=== PATIENT | male | born 1935 | race Caucasian/White ===

== ENCOUNTER 2018-06-12 12:52 | Inpatient (IN) ==
[2018-06-12 13:15] VITALS: BMI 24.9
[2018-06-12] MEDS ORDERED: NS 1000 ML 1,000 ML ONE (15:21)
[2018-06-12] MEDS ORDERED: NS 1000 ML 1,000 ML IV SCH (16:00)
--- NOTE | 2018-06-12 16:53 | DR.GENAD ---
HPI Time Seen Time Seen by Provider: 06/12/18 16:47 PCP Primary Care Physician: TIFFANY WU HPI Comment HPI Comment: PATIENT HAVE LOWER ABDOMINAL PAIN ALSO. SAW PCP THIS AM, LABS AND CT DONE. CALL TO GO TO NEAREST ED BECAUSE OF LOW HEMOGLOBIN. DENIES FEVER. Complaint/Symptoms Chief Complaint Doctors Comments: DIZZINESS, DARK STOOL NOTED YESTERDAY AND LOW HEMOGLOBIN. Chief Complaint:: PT HAD LABS DRAWN AND PT WAS TOLD TO COME ER BECAUSE HIS BLOOD WAS LOW , AND HE WAS INFECTED , AND HIS KIDNEYS ARE NOT WORKING ,,BR Self Treatment fo Chief Complaint: PT FAMILY C/O HAVING TARRY DIARRHEA, SINCE YESTERDAY AND IT STOPPED TODAY , PT HAS PERIODS AND CONSTIPATION AND DIARRHEA, BR Nurses notes reviewed Nurses Notes Review: Yes Source History Provided: Patient and Family Member Mode of Arrival Mode of Arrival: Ambulatory Timing Onset of Chief Complaint: 06/09/18 Came on: Suddenly Duration Duration: Constant Duration: Days Severity Severity: Moderate PMH PMH Past Medical History: Yes Past Medical History: Hypertension Past Surgical History: Yes Past Surgical History Comment: HIP REPLACEMENT, EYE SUGERY, OPEN HEART, Family History History of Family Medical Conditions: No Social History Does patient currently use any type of tobacco product: No Have you used tobacco products in the last 12 months: No Type of Tobacco Use: None Does any household member use tobacco: No Alcohol Use: None Do you use any recreational Drugs:: No Lives With: Family Lives Where: Home infectious screening In the last 2 months have you had wt loss of >10#?: NO Have you had fever, night sweats or hemotysis?: No Have you traveled outside the country in the last 6 months?: No Isolation: Standard ROS Review of Systems Constitutional: Weakness and Fatigue Eyes: No Symptoms Reported ENTM: No Symptoms Reported Respiratoy: Short of Breath Cardiovascular: No Symptoms Reported Gastrointestinal/Abdominal: No Symptoms Reported, Abdominal Pain, Constipation, Diarrhea and Other (GI BLEEDING) Genitourinary: Bleeding Neurological: No Symptoms Reported Musculoskeletal: No Symptoms Reported Integumentary: No Symptoms Reported Hematologic/Lymphatic: No Symptoms Reported Endocrine: No Symptoms Reported Psychiatric: No Symptoms Reported All Other Systems: Reviewed and Negative PE Vital Signs Vitals: Temperature 98.6 F Pulse Rate [Right Brachial] 90 Pulse Rate [Left Brachial] 84 Pulse Rate 47 Respiratory Rate 20 Blood Pressure [Right Arm] 134/64 Blood Pressure [Left Arm] 116/55 Blood Pressure 113/55 O2 Sat by Pulse Oximetry 97 General Limitations: No Limitations General Appearance: Alert and In No Apparent Distress Head Head Exam: Normal Inspection Eyes Eye exam: Normal Appearance ENT ENT Exam: Normal Exam External Ear Exam: Normal External Inspection TM/Canal Exam: Bilateral: Normal Nose Exam: Normal Nose Exam Mouth Exam: Normal Inspection Throat Exam: Normal Inspection Neck Neck Exam: Normal Inspection and Trachea Midline Chest Chest Inspection: Normal Inspection and Symmetric Chest Wall Rise Respiratory Respiratory Exam: Normal Lung Sounds Bilat Respiratory Exam: Bilateral: Clear to Auscultation Cardiovascular Cardiovascular Exam: Regular Rate and Normal Rhythm Abdominal Exam Abdominal Exam: Normal Inspection, Normal Bowel Sounds and Soft Extremities Extremities Exam: Normal Inspection Back Back Exam: Normal Inspection Neurologic Neurological Exam: Alert and Oriented X3 Psychiatric Psychiatric Exam: Normal Affect and Normal Mood Skin Skin Exam: Warm, Dry, Intact and Normal Color MDM Differential Diagnosis Differential Diagnosis: ANEMIA, GENERALIZE WEAKNESS, PUD, GI BLEEDING COURSE Treatment Treatment: SEE ORDERS. Education/Counseling Education/Counseling: Patient Educated On: Diagnosis and Needs for Follow Up ROR Labs Reviewed Laboratory Results Reviewed?: Yes Result Diagrams: 06/14/18 10:52 06/14/18 04:35 Laboratory: WBC 8.1 X10^3/uL (3.6-10.0) 06/14/18 06:23 RBC 3.12 X10^6/uL (4.7-6.0) L 06/14/18 06:23 Hgb 10.0 g/dL (13.5-18.0) L 06/14/18 10:52 Hct 30.0 % (42.0-54.0) L 06/14/18 10:52 MCV 87.6 fL (80.0-100.0) 06/14/18 06:23 MCH 29.9 pg (27.0-34.0) 06/14/18 06:23 MCHC 34.2 g/dL (33.0-35.0) 06/14/18 06:23 RDW 15.8 % (11.6-16.5) 06/14/18 06:23 Plt Count 284 X10^3/uL (150.0-450.0) 06/14/18 06:23 MPV 7.4 fL (7.4-11.0) 06/14/18 06:23 Neut % (Auto) 68.1 % (42.0-75.0) 06/14/18 06:23 Lymph % (Auto) 17.5 % (21.0-51.0) L 06/14/18 06:23 [place] % (Auto) 11.0 % (0.0-13.0) 06/14/18 06:23 Eos % (Auto) 3.0 % (0.9-2.9) H 06/14/18 06:23 Baso % (Auto) 0.4 % (0.2-1.0) 06/14/18 06:23 Neut # (Auto) 5.5 x10^3/uL (2.2-4.8) H 06/14/18 06:23 Lymph # (Auto) 1.4 X10^3/uL (1.3-2.9) 06/14/18 06:23 [place] # (Auto) 0.9 x10^3/uL (0.3-0.8) H 06/14/18 06:23 Eos # (Auto) 0.2 x10^3/uL (0.0-0.2) 06/14/18 06:23 Baso # (Auto) 0.0 X10^3/uL (0.0-0.1) 06/14/18 06:23 Absolute Nucleated RBC 0.0 /100WBC 06/14/18 06:23 Sodium 143 mmol/L (136-145) 06/14/18 04:35 Corrected Sodium TNP 06/14/18 04:35 Potassium 4.4 mmol/L (3.5-5.1) 06/14/18 04:35 Chloride 110 mmol/L (98-107) H 06/14/18 04:35 Carbon Dioxide 19.0 mmol/L (21-32) L 06/14/18 04:35 BUN 56 mg/dL (7-18) H 06/14/18 04:35 Creatinine 2.68 mg/dL (0.70-1.30) H 06/14/18 04:35 Est GFR (MDRD) Af Amer 29 (>60) L 06/14/18 04:35 Est GFR (MDRD) Non-Af 24 (>60) L 06/14/18 04:35 Glucose 89 mg/dL (65-99) 06/14/18 04:35 POC Glucose (mg/dL) 104 mg/dL (65-99) H 06/13/18 16:39 Calcium 8.2 mg/dL (8.5-10.1) L 06/14/18 04:35 Corrected Calcium 9.2 mg/dL (8.5-10.1) 06/14/18 04:35 Iron 14 ug/dL (50-175) L 06/12/18 15:17 TIBC 320 ug/dL (250-450) 06/12/18 15:17 Transferrin 237 mg/dL (202-364) 06/12/18 15:17 Ferritin 51 ng/mL (26-388) 06/12/18 15:17 Total Bilirubin 0.40 mg/dL (0.2-1.0) 06/14/18 04:35 AST 30 Units/L (15-37) 06/14/18 04:35 ALT 25 Units/L (12-78) 06/14/18 04:35 Alkaline Phosphatase 88 Units/L (46-116) 06/14/18 04:35 Creatine Kinase 375 Units/L (39-308) H 06/14/18 06:23 CK-MB (CK-2) 3.9 ng/mL (0-4.0) 06/14/18 06:23 CK/CKMB % Calc 1.0 % (<4) 06/14/18 06:23 Troponin I < 0.02 ng/mL (0-1.5) 06/14/18 06:23 Total Protein 6.1 g/dL (6.4-8.2) L 06/14/18 04:35 Albumin 2.7 g/dL (3.4-5.0) L 06/14/18 04:35 Globulin 3.4 g/dL (2.5-4.5) 06/14/18 04:35 Albumin/Globulin Ratio 0.8 Ratio (1.1-2.1) L 06/14/18 04:35 Triglycerides 59 mg/dL (0-150) 06/13/18 04:10 Cholesterol 150 mg/dL (0-200) 06/13/18 04:10 LDL Cholesterol, Calc 92 mg/dL (0-100) 06/13/18 04:10 HDL Cholesterol 46 mg/dL (40-60) 06/13/18 04:10 Cholesterol/HDL Ratio 3.3 (0.0-5.0) 06/13/18 04:10 Carcinoembryonic Ag 3.7 ng/mL (0.0-3.0) H 06/14/18 04:35 Vitamin B12 264 pg/mL (193-986) 06/12/18 15:17 Folate 18.7 ng/mL (>8.6) 06/12/18 15:17 Stool Description Fob tube 06/12/18 17:00 Stl Occult Blood (IFOB) Positive (NEGATIVE) A 06/12/18 17:00 Blood Type A POSITIVE 06/12/18 15:17 Antibody Screen Negative 06/12/18 15:17 Crossmatch See Detail 06/12/18 15:17 Diagnosis Discharge Problem: Anemia Instructions Instructions: Blood Transfusion, Adult, [id number]
[2018-06-12 18:23] LABS: CKMB % 1.1 % (<4); TROPONIN I 0.03 ng/mL (0-1.5)
[2018-06-12 18:25] LABS: CREATINE KINASE MB 8.4 ng/mL (0-4.0)
[2018-06-12] MEDS ORDERED: TYLENOL 325 MG TAB PO ONE ×2 (19:06→19:14)
[2018-06-12] MEDS ORDERED: BENADRYL CAP/TAB 25 MG PO ONE (19:14)
[2018-06-12] MEDS ORDERED: BENADRYL CAP 50 MG PO ONE (19:15)
[2018-06-12 19:24] LABS: CALCIUM 7.9 mg/dL (8.5-10.1); CARBON DIOXIDE 19.8 mmol/L (21-32); COR CA(FOR HYPOALB) 8.7 mg/dL (8.5-10.1); CREATININE 3.66 mg/dL (0.70-1.30); TOTAL PROTEIN 6.5 g/dL (6.4-8.2)
[2018-06-12] MEDS ORDERED: NS 250 ML IV 250 ML IV ONE ×2 (19:39→23:09)
[2018-06-12] MEDS: NAMENDA TAB 10 MG PO SCH (20:24)
[2018-06-12] MEDS ORDERED: ARICEPT TAB 5 MG PO SCH (20:59)
[2018-06-12] MEDS: PEPCID TAB 20 MG PO SCH (21:32)
[2018-06-12] MEDS: ARICEPT TAB 5 MG PO SCH (21:32)
[2018-06-13 05:11] LABS: BASOPHILS % (AUTO) 0.3 % (0.2-1.0); EOSINOPHILS # (AUTO) 0.2 x10^3/uL (0.0-0.2); EOSINOPHILS % (AUTO) 2.3 % (0.9-2.9); HEMATOCRIT 26.5 % (42.0-54.0); HEMOGLOBIN 9.1 g/dL (13.5-18.0); LYMPHOCYTES # (AUTO) 1.3 X10^3/uL (1.3-2.9); LYMPHOCYTES % (AUTO) 12.9 % (21.0-51.0); MEAN CORPUSCULAR HEMOGLOBIN 29.9 pg (27.0-34.0); MEAN CORPUSCULAR HGB CONC 34.4 g/dL (33.0-35.0); MEAN CORPUSCULAR VOLUME 86.8 fL (80.0-100.0); MEAN PLATELET VOLUME 7.8 fL (7.4-11.0); MONOCYTES # (AUTO) 0.7 x10^3/uL (0.3-0.8); MONOCYTES % (AUTO) 7.7 % (0.0-13.0); NEUTROPHILS # (AUTO) 7.4 x10^3/uL (2.2-4.8); NEUTROPHILS % (AUTO) 76.8 % (42.0-75.0); PLATELET COUNT 251 X10^3/uL (150.0-450.0); RED BLOOD COUNT 3.06 X10^6/uL (4.7-6.0); RED CELL DISTRIBUTION WIDTH 15.6 % (11.6-16.5); WHITE BLOOD COUNT 9.7 X10^3/uL (3.6-10.0)
[2018-06-13 05:27] LABS: ALANINE AMINOTRANSFERASE 22 Units/L (12-78); ALBUMIN 2.6 g/dL (3.4-5.0); ALKALINE PHOSPHATASE 84 Units/L (46-116); ASPARTATE AMINO TRANSFERASE 31 Units/L (15-37); BLOOD UREA NITROGEN 70 mg/dL (7-18); CALCIUM 7.4 mg/dL (8.5-10.1); CARBON DIOXIDE 20.2 mmol/L (21-32); CHLORIDE 107 mmol/L (98-107); CHOL/HDL RATIO 3.3 (0.0-5.0); CHOLESTEROL 150 mg/dL (0-200); COR CA(FOR HYPOALB) 8.5 mg/dL (8.5-10.1); CREATININE 3.16 mg/dL (0.70-1.30); HDL CHOLESTEROL 46 mg/dL (40-60); SODIUM 140 mmol/L (136-145); TOTAL PROTEIN 5.8 g/dL (6.4-8.2); TRIGLYCERIDES 59 mg/dL (0-150); eGFR NON BLACK RACES 20 (>60)
[2018-06-13 07:22] LABS: CREATINE KINASE 569 Units/L (39-308)
[2018-06-13 07:23] LABS: CREATINE KINASE MB 5.7 ng/mL (0-4.0); TROPONIN I < 0.02 ng/mL (0-1.5)
[2018-06-13] MEDS: BENICAR TAB 40 MG PO SCH (08:28)
[2018-06-13] MEDS: NAMENDA TAB 10 MG PO SCH ×2 (08:28→20:08)
[2018-06-13] MEDS: PEPCID TAB 20 MG PO SCH (08:28)
[2018-06-13] MEDS: HYDROCHLOROTHIAZIDE 12.5 MG CAP PO SCH (08:28)
[2018-06-13] MEDS ORDERED: ARICEPT TAB 5 MG PO SCH (09:00)
[2018-06-13] MEDS ORDERED: VISTARIL PO ONE (12:49)
[2018-06-13] MEDS ORDERED: RESTORIL CAP 30 MG PO PRN (16:17)
[2018-06-13] MEDS ORDERED: GEODON INJ IM ONE (17:00)
[2018-06-13] MEDS ORDERED: HALDOL INJ IVP PRN (17:03)
[2018-06-13] MEDS: ARICEPT TAB 5 MG PO SCH (20:08)
[2018-06-13] MEDS ORDERED: PROTONIX INJ 40 MG VIAL ONE (22:45)
[2018-06-13] MEDS: PROTONIX INJ 40 MG VIAL IVP SCH (22:48)
[2018-06-13] MEDS ORDERED: PHARMACY CONSULT - DOSE _____ XX SCH (23:00)
[2018-06-14 05:35] LABS: ALANINE AMINOTRANSFERASE 25 Units/L (12-78); ALBUMIN 2.7 g/dL (3.4-5.0); ALKALINE PHOSPHATASE 88 Units/L (46-116); ASPARTATE AMINO TRANSFERASE 30 Units/L (15-37); BLOOD UREA NITROGEN 56 mg/dL (7-18); CALCIUM 8.2 mg/dL (8.5-10.1); CHLORIDE 110 mmol/L (98-107); COR CA(FOR HYPOALB) 9.2 mg/dL (8.5-10.1); CREATININE 2.68 mg/dL (0.70-1.30); SODIUM 143 mmol/L (136-145); TOTAL PROTEIN 6.1 g/dL (6.4-8.2); eGFR NON BLACK RACES 24 (>60)
[2018-06-14 06:49] LABS: BASOPHILS % (AUTO) 0.4 % (0.2-1.0); EOSINOPHILS # (AUTO) 0.2 x10^3/uL (0.0-0.2); HEMATOCRIT 27.4 % (42.0-54.0); HEMOGLOBIN 9.3 g/dL (13.5-18.0); LYMPHOCYTES # (AUTO) 1.4 X10^3/uL (1.3-2.9); LYMPHOCYTES % (AUTO) 17.5 % (21.0-51.0); MEAN CORPUSCULAR HEMOGLOBIN 29.9 pg (27.0-34.0); MEAN CORPUSCULAR HGB CONC 34.2 g/dL (33.0-35.0); MEAN CORPUSCULAR VOLUME 87.6 fL (80.0-100.0); MEAN PLATELET VOLUME 7.4 fL (7.4-11.0); MONOCYTES # (AUTO) 0.9 x10^3/uL (0.3-0.8); NEUTROPHILS # (AUTO) 5.5 x10^3/uL (2.2-4.8); NEUTROPHILS % (AUTO) 68.1 % (42.0-75.0); PLATELET COUNT 284 X10^3/uL (150.0-450.0); RED BLOOD COUNT 3.12 X10^6/uL (4.7-6.0); RED CELL DISTRIBUTION WIDTH 15.8 % (11.6-16.5); WHITE BLOOD COUNT 8.1 X10^3/uL (3.6-10.0)
[2018-06-14 07:03] LABS: CREATINE KINASE 375 Units/L (39-308); CREATINE KINASE MB 3.9 ng/mL (0-4.0); TROPONIN I < 0.02 ng/mL (0-1.5)
[2018-06-14] MEDS ORDERED: NS 100 ML IV 100 ML with VENOFER 400 MG IV NR ×2 (08:00)
[2018-06-14] MEDS: PROTONIX INJ 40 MG VIAL IVP SCH (09:23)
[2018-06-14] MEDS: NAMENDA TAB 10 MG PO SCH (09:23)
[2018-06-14] MEDS: HYDROCHLOROTHIAZIDE 12.5 MG CAP PO SCH (09:24)
[2018-06-14] MEDS: BENICAR TAB 40 MG PO SCH (09:25)
[2018-06-14] MEDS: PEPCID TAB 20 MG PO SCH (09:25)
[2018-06-14 16:26] VITALS: BP 116/55
== END 2018-06-14 15:55 | disposition home or self-care (01) | DRG 812 ==
LOC: ER 13:06 → MED/SURG 17:46
PROVIDERS: ADMIT Internal Medicine; ATTEND Internal Medicine
DX: Z87.19 Personal history of other diseases of the digestive system; R53.1 Weakness; D64.89 Other specified anemias; R10.13 Epigastric pain; M13.89 Other specified arthritis, multiple sites; R42 Dizziness and giddiness; K92.2 Gastrointestinal hemorrhage, unspecified; R10.84 Generalized abdominal pain
CPT/HCPCS: 36415; 36430; 74176; 80053; 80061; 81001; 82150; 82270; 82378; 82550; 82553; 82607; 82728; 82746; 83540; 83550; 83690; 84466; 84484; 85014; 85018; 85025; 86850; 86900; 86901; 86922; 93005; 94760; 96365; 96367; 99221; 99231; 99238; 99282; 99284; A4222; C9113; P9016; Q0177; J1630; J1756; J3490; J7030; J7050

== ENCOUNTER 2018-06-29 16:40 | Inpatient (IN) ==
[2018-06-29] MEDS ORDERED: NS 1000 ML 1,000 ML IV SCH (17:00)
[2018-06-29] MEDS ORDERED: DUONEB 0.5 MG/3 MG NEB ONE (17:00)
[2018-06-29] MEDS ORDERED: SOLU-Medrol 125 MG VIAL IVP ONE (17:00)
--- NOTE | 2018-06-29 17:04 | DR.AMS ---
HPI - Time Seen Time seen: 16:59 - PCP Primary Care Physician: TIFFANY WU - Complaint Cheif Complaint Doctors Comments: Patient brought in by EMS with the complaint that the patient was unresponsive according to family members. Son states the patient has had a cold, cough, congestion with wheezing at home and was not responding to him and he called EMS. States his alzheimers is getting worst and he has problems controlling his bowels and he was setting on the side of the bed yesterday and he was changing his pull up when he fell off the bed and hit his head. States patient was not talking to them at home and he has had slurred speech. States he has a history of low blood and his last visit hemoglobin was 7.1 and he received two units of blood. Patient denies chest pain. Chief Complaint:: EMS OUT TO PT WITH UNRESPONSIVE ? STROKE UPON EMS ARRIVAL PT ALERT AND CONFUSED PT HAS HX OF ALZHEIMERS, UPON ARRIVAL TO ED PT IS ALERT AND ORIENTED TIMES 3 .PT IS MOVING ALL EXT'S WELL AND HE IS ABLE TO FOLLOW COMMANDS , PT C/O HAVING PAIN TO HIS LEGS HIS SPEECH IS CLEAR AND NO SLURRED SPEECH NOTED, PT IS SLIGHTLY PALE ,BR Self Treatment fo Chief Complaint: PT RECENTLY ADMITTED FOR ANEMIA, EMS NOTED PT TO HAVE CONGESTED LUNGS, PT GIVEN RESP TX, UPON ARRIVAL TO ED EXP WHEEZING NOTED TO PTS LEFT LUNG NO DISTRESS NOTED ,BR - Reviewed Nurses Notes Reviewed: Yes - Source History Provided: Patient, EMS - Mode of Arrival Mode of Arrival: EMS - Timing Onset of Chief Complaint: 06/29/18 Came On: Gradually Symptoms: Improving Symptom Onset: Unknown - Duration Duration: Intermittent How lon Duration: Days - Quality Quality: Decreased Alertness, Change in Behavior, Confusion, Not Eating - Severity Severity: Mild - Context Recent: Cough, Trauma (hit head yestereday) History Of: Dementia - Associated Signs and Symptoms Associated Signs and Symptoms: Generalized Weakness, Slurred Speech, Change in Behavior, Confusion, Decreased Oral Intake, Unresponsiveness PMH - PMH Past Medical History: Yes Past Medical History: Hypertension Past Medical History Comment: CAD, ANEMIA, ? PEPTIC ULCER, Past Surgical History: Yes Surgical History: Ortho Surgery - Family History History of Family Medical Conditions: Yes Family Medical History: Diabetes Mellitus, Hypertension - Social History Does patient currently use any type of tobacco product: No Have you used tobacco products in the last 12 months: No Type of Tobacco Use: None Does any household member use tobacco: No Alcohol Use: None Do you use any recreational Drugs:: No Lives With: Family Lives Where: Home - infectious screening In the last 2 months have you had wt loss of >10#?: NO Have you had fever, night sweats or hemotysis?: No Have you traveled outside the country in the last 6 months?: No ROS - Review of Systems Constitutional: No Symptoms Reported, Weakness, Loss of Appetite Eyes: No Symptoms Reported. negative: See HPI, Eye Pain, Blurred Vision, Tearing, Discharge, Photophobia, Diplopia, Other ENTM: No Symptoms Reported Respiratoy: No Symptoms Reported, Productive Cough, Short of Breath, Wheezing Cardiovascular: No Symptoms Reported. negative: See HPI, Chest Pain, Edema, Palpitations, Syncope, Cyanosis, Skin Mottling, Other Gastrointestinal/Abdominal: No Symptoms Reported. negative: See HPI, Abdominal Pain, Constipation, Diarrhea, Nausea, Vomiting, Food Intolerance, Other Genitourinary: No Symptoms Reported Neurological: No Symptoms Reported, Weakness, Speech Problem Musculoskeletal: No Symptoms Reported Integumentary: No Symptoms Reported Hematologic/Lymphatic: No Symptoms Reported Endocrine: No Symptoms Reported Psychiatric: No Symptoms Reported. negative: See HPI, Anxiety, Depression, Hallucinations, Excessive crying, Suicidal, Other PE - General Limitations: Physical Limitation General Appearance: Alert, In No Apparent Distress - Head Head Exam: Normal Inspection, Atraumatic, Normocephalic Head Exam Physical: negative: Laceration, Abrasion, Contusion, Hematoma, Raccoon Eyes, Henao's Sign, Tenderness of Temporal Artery, CSF Rhinorrhea, CSF Otorrhea, Other - Eyes Eye exam: Normal Appearance, PERRL, EOMI. negative: Scleral Icterus, Conjunctival Injection, Nystagmus, Miosis, Mydrasis, Periorbital Swelling, Periorbital Tenderness, Other Pupils: Regular, Round: Bilateral - ENT ENT Exam: Normal Exam, Normal Oropharynx, Normal External Ear Exam, Mucous Membranes Moist, TM's Normal Bilaterally External Ear Exam: Normal External Inspection TM/Canal Exam: Bilateral Normal Nose Exam: Normal Nose Exam Mouth Exam: Normal Inspection Throat Exam: Normal Inspection - Neck Neck Exam: Normal Inspection, Full ROM, Trachea Midline. negative: Tenderness, Meningismus, Lymphadenopathy, Thyromegaly, Other - Chest Chest Inspection: Normal Inspection, Symmetric Chest Wall Rise - Respiratory Respiratory Exam: Normal Lung Sounds Bilat, Chest Wall Tenderness Respiratory Exam: Bilateral Wheezing, Bilateral Decreased Breath Sounds, Left Rales - Cardiovascular Cardiovascular Exam: Regular Rate, Normal Rhythm, Normal Heart Sounds - Abdominal Exam Abdominal Exam: Normal Inspection, Normal Bowel Sounds, Soft Abdominal Tenderness: negative: RUQ, RLQ, LUQ, LLQ, Epigastrium, Suprapubic, Diffuse, Mild, Moderate, Severe, Other - Extremities Extremities Exam: Normal Inspection, Full ROM, Normal Capillary Refill. negative: Tenderness, Edema, Joint Swelling, Calf Tenderness, Other - Back Back Exam: Normal Inspection, Full ROM - Neurological Neurological Exam: Alert, Oriented X3, CN II-XII Intact, Reflexes Normal. negative: Normal Gait (gait not tested) Patient Oriented To: Person, Place. negative: Time (states he is 89 years old) Speech: Fluid Speech Cranial Nerve Exam: EOM Function (II, III, IV, ): Normal, Facial Sensation (V): Normal, Facial Palsy (VII): Normal Cerebellar Function: Normal Vibratory/Position. negative: Normal Gait (gait not tested) Motor Strength - LUE: 5/5 Motor Strength - RUE: 5/5 Motor Strength - RLE: 5/5 Upper Motor Neuron Exam: Babinski Sign: Normal Sensory Exam Upper Extremity: Light Touch: Normal DTR: achilles tendon (L): 2+, achilles tendon (R): 2+, bicep (L): 2+, bicep (R): 2+ - Psychological Psychiatric Exam: Normal Affect, Normal Mood Expanded Psychiatric Exam: negative: Poor Eye Contact, Pressured Speech, Echolalia, Psychomotor Agitation, Delusional, Paranoid, Catatonic, Mute, Perseverating, Euphoric, Restlessness, Flight of Ideas, Loose Associations, Uncooperative, Refuses to Answer, Auditory Hallucinations, Visual Hallucinations, Confabulating, Other - Skin Skin Exam: Warm, Dry, Intact, Normal Color - Vitals Vital Signs: Temp Pulse Pulse Resp BP BP BP 06/29/18 18:09 92 H 18 105/53 06/29/18 18:08 86 16 113/57 06/29/18 17:30 91 H 06/29/18 16:45 98.0 F 91 H 20 109/55 06/14/18 16:00 116/55 116/55 06/13/18 17:00 134/64 Pulse Ox 06/29/18 18:09 92 L 06/29/18 18:08 92 L 06/29/18 17:30 100 06/29/18 16:45 100 06/14/18 16:00 06/13/18 17:00 Course - Consultation Called: 18:22 Call Returned: 18:22 (Dr. Mack to admit patient) - Education/Counseling Education/Counseling: Patient, Family Educated On: Treatment, Diagnosis, Needs for Follow Up ROR - Labs Reviewed Laboratory Results Reviewed?: Yes (All labs and x-ray results reviewed and discussed with family) Result Diagrams: 06/29/18 17:00 06/29/18 17:00 - XRAY XRAY Interpreted by: Radiologist (CT head: No acute intracranial pathology), Self (CXR: Borderline cardiomegaly with focal parenchymal density left base may represent chrinic scarring or a acute process int he lower lobe.) XRAY Findings: CXR: MIld cardiomegaly. Small focal parenchymal density left base. - EKG Rate: 91 [place]: Normal Rhythm: NSR Block: None, RBBB ST: Old, Inf, Infarct - Labs Reviewed Laboratory: WBC 9.4 X10^3/uL (3.6-10.0) 06/29/18 17:00 RBC 2.71 X10^6/uL (4.7-6.0) L 06/29/18 17:00 Hgb 8.3 g/dL (13.5-18.0) L 06/29/18 17:00 Hct 24.4 % (42.0-54.0) L 06/29/18 17:00 MCV 90.1 fL (80.0-100.0) 06/29/18 17:00 MCH 30.5 pg (27.0-34.0) 06/29/18 17:00 MCHC 33.9 g/dL (33.0-35.0) 06/29/18 17:00 RDW 16.1 % (11.6-16.5) 06/29/18 17:00 Plt Count 297 X10^3/uL (150.0-450.0) 06/29/18 17:00 MPV 7.9 fL (7.4-11.0) 06/29/18 17:00 Neut % (Auto) 60.1 % (42.0-75.0) 06/29/18 17:00 Lymph % (Auto) 29.1 % (21.0-51.0) 06/29/18 17:00 [place] % (Auto) 7.9 % (0.0-13.0) 06/29/18 17:00 Eos % (Auto) 2.7 % (0.9-2.9) 06/29/18 17:00 Baso % (Auto) 0.2 % (0.2-1.0) 06/29/18 17:00 Neut # (Auto) 5.6 x10^3/uL (2.2-4.8) H 06/29/18 17:00 Lymph # (Auto) 2.7 X10^3/uL (1.3-2.9) 06/29/18 17:00 [place] # (Auto) 0.7 x10^3/uL (0.3-0.8) 06/29/18 17:00 Eos # (Auto) 0.3 x10^3/uL (0.0-0.2) H 06/29/18 17:00 Baso # (Auto) 0.0 X10^3/uL (0.0-0.1) 06/29/18 17:00 Absolute Nucleated RBC 0.0 /100WBC 06/29/18 17:00 INR Target Range - 06/29/18 17:00 INR 1.01 (0.8-1.3) 06/29/18 17:00 APTT 27.4 SECONDS (22.9-36.5) 06/29/18 17:00 PTT Comment - 06/29/18 17:00 Sodium 140 mmol/L (136-145) 06/29/18 17:00 Corrected Sodium 141 mmol/L (136-145) 06/29/18 17:00 Potassium 4.4 mmol/L (3.5-5.1) 06/29/18 17:00 Chloride 106 mmol/L (98-107) 06/29/18 17:00 Carbon Dioxide 20.8 mmol/L (21-32) L 06/29/18 17:00 BUN 95 mg/dL (7-18) H 06/29/18 17:00 Creatinine 3.96 mg/dL (0.70-1.30) H 06/29/18 17:00 Est GFR (MDRD) Af Amer 19 (>60) L 06/29/18 17:00 Est GFR (MDRD) Non-Af 15 (>60) L 06/29/18 17:00 Glucose 128 mg/dL (65-99) H 06/29/18 17:00 Calcium 7.8 mg/dL (8.5-10.1) L 06/29/18 17:00 Corrected Calcium 8.7 mg/dL (8.5-10.1) 06/29/18 17:00 Magnesium 2.3 mg/dL (1.7-2.9) 06/29/18 17:00 Total Bilirubin 0.20 mg/dL (0.2-1.0) 06/29/18 17:00 AST 17 Units/L (15-37) 06/29/18 17:00 ALT 19 Units/L (12-78) 06/29/18 17:00 Alkaline Phosphatase 92 Units/L (46-116) 06/29/18 17:00 Creatine Kinase 71 Units/L (39-308) 06/29/18 17:00 CK-MB (CK-2) 2.3 ng/mL (0-4.0) 06/29/18 17:00 CK/CKMB % Calc 3.2 % (<4) 06/29/18 17:00 Troponin I < 0.02 ng/mL (0-1.5) 06/29/18 17:00 Total Protein 6.1 g/dL (6.4-8.2) L 06/29/18 17:00 Albumin 2.9 g/dL (3.4-5.0) L 06/29/18 17:00 Globulin 3.2 g/dL (2.5-4.5) 06/29/18 17:00 Albumin/Globulin Ratio 0.9 Ratio (1.1-2.1) L 06/29/18 17:00 - Diagnosis Discharge Problem: Left pulmonary infiltrate on CXR, Dehydration, Normocytic anemia, Hyperglycemia, Cardiomegaly Altered mental status Qualifiers: Altered mental status type: transient alteration of awareness Qualified Code(s): R40.4 - Transient alteration of awareness Chronic kidney disease (CKD) Qualifiers: Chronic kidney disease stage: stage 4 (severe) Qualified Code(s): N18.4 - Chronic kidney disease, stage 4 (severe) Alzheimer disease Qualifiers: Alzheimer's disease onset: unspecified onset - Discharge Plan Disposition: ADMITTED INPATIENT Condition: Stable - Follow ups/Referrals Follow ups/Referrals: Melvin Mack [Primary Care Provider] - 3 days - Instructions
[2018-06-29] MEDS ORDERED: DUONEB 0.5 MG/3 MG ONE (17:05)
[2018-06-29] MEDS ORDERED: SOLU-Medrol 125 MG VIAL ONE (17:05)
[2018-06-29 17:20] LABS: BASOPHILS % (AUTO) 0.2 % (0.2-1.0); EOSINOPHILS # (AUTO) 0.3 x10^3/uL (0.0-0.2); EOSINOPHILS % (AUTO) 2.7 % (0.9-2.9); HEMATOCRIT 24.4 % (42.0-54.0); HEMOGLOBIN 8.3 g/dL (13.5-18.0); LYMPHOCYTES # (AUTO) 2.7 X10^3/uL (1.3-2.9); LYMPHOCYTES % (AUTO) 29.1 % (21.0-51.0); MEAN CORPUSCULAR HEMOGLOBIN 30.5 pg (27.0-34.0); MEAN CORPUSCULAR HGB CONC 33.9 g/dL (33.0-35.0); MEAN CORPUSCULAR VOLUME 90.1 fL (80.0-100.0); MEAN PLATELET VOLUME 7.9 fL (7.4-11.0); MONOCYTES # (AUTO) 0.7 x10^3/uL (0.3-0.8); MONOCYTES % (AUTO) 7.9 % (0.0-13.0); NEUTROPHILS # (AUTO) 5.6 x10^3/uL (2.2-4.8); NEUTROPHILS % (AUTO) 60.1 % (42.0-75.0); PLATELET COUNT 297 X10^3/uL (150.0-450.0); RED BLOOD COUNT 2.71 X10^6/uL (4.7-6.0); RED CELL DISTRIBUTION WIDTH 16.1 % (11.6-16.5); WHITE BLOOD COUNT 9.4 X10^3/uL (3.6-10.0)
--- NOTE | 2018-06-29 17:30 | RAD ---
Examination: AP chest History: Fell Comparison reference: None Findings: Mild cardiomegaly with sternal wires. Small focal area of suspect infiltrate left lower lung. No pneumothorax or pleural fluid. Impression: Borderline to mild cardiomegaly with post sternotomy findings. Small focal parenchymal density left base may represent chronic scarring or a more acute process in the lower lobe. Follow-up suggested. Reported By:
[2018-06-29 17:33] LABS: BLOOD UREA NITROGEN 95 mg/dL (7-18); CALCIUM 7.8 mg/dL (8.5-10.1); CARBON DIOXIDE 20.8 mmol/L (21-32); CHLORIDE 106 mmol/L (98-107); COR NA(FOR HYPERGLY) 141 mmol/L (136-145); CREATININE 3.96 mg/dL (0.70-1.30); SODIUM 140 mmol/L (136-145); TROPONIN I < 0.02 ng/mL (0-1.5); eGFR NON BLACK RACES 15 (>60)
--- NOTE | 2018-06-29 17:37 | CT ---
HISTORY: Trauma status post fall. Study: CT brain without contrast Comparison: CT head dated April 30, 2018. Technique: Multiple axial images of the brain were obtained from the skull base to the vertex without administration of IV contrast. Dose reduction techniques including Automated Exposure Control (AEC) and adjustment of mA and kV were utilized. Findings: Age-related cortical atrophy and chronic small vessel ischemic changes. No acute intraparenchymal hemorrhage or mass can be identified. No extra-axial fluid collections are seen. No alteration in the attenuation of the brain parenchyma can be identified to suggest acute or subacute ischemic change. The ventricular system is symmetric and nondilated. The osseous structures are intact. Chronic right sphenoid sinus disease. Remaining visualized paranasal sinuses and mastoid air cells are clear. IMPRESSION: No acute intracranial pathology. Reported By:
[2018-06-29 17:38] LABS: ALANINE AMINOTRANSFERASE 19 Units/L (12-78); ALBUMIN 2.9 g/dL (3.4-5.0); ALKALINE PHOSPHATASE 92 Units/L (46-116); ASPARTATE AMINO TRANSFERASE 17 Units/L (15-37); CKMB % 3.2 % (<4); COR CA(FOR HYPOALB) 8.7 mg/dL (8.5-10.1); CREATINE KINASE 71 Units/L (39-308); CREATINE KINASE MB 2.3 ng/mL (0-4.0); MAGNESIUM 2.3 mg/dL (1.7-2.9); TOTAL PROTEIN 6.1 g/dL (6.4-8.2)
[2018-06-29] MEDS ORDERED: ROCEPHIN VIAL 1 GRAM IVP ONE (17:55)
[2018-06-29] MEDS ORDERED: ROCEPHIN VIAL 1 GRAM ONE (18:12)
[2018-06-29] MEDS: DUONEB 0.5 MG/3 MG NEB SCH (20:26)
[2018-06-29] MEDS: ROBITUSSIN DM PO SCH (21:56)
[2018-06-29] MEDS: NS 1/2 1000 ML IV 1,000 ML IV SCH (22:00)
[2018-06-29] MEDS ORDERED: NS 1/2 1000 ML IV 1,000 ML IV ONE (22:54)
[2018-06-30] MEDS: DUONEB 0.5 MG/3 MG NEB SCH ×6 (01:52→20:17)
[2018-06-30] MEDS: ROBITUSSIN DM PO SCH ×5 (03:44→21:39)
[2018-06-30 06:15] LABS: BASOPHILS % (AUTO) 0.2 % (0.2-1.0); HEMATOCRIT 21.1 % (42.0-54.0); HEMOGLOBIN 7.3 g/dL (13.5-18.0); LYMPHOCYTES # (AUTO) 0.6 X10^3/uL (1.3-2.9); LYMPHOCYTES % (AUTO) 9.7 % (21.0-51.0); MEAN CORPUSCULAR HEMOGLOBIN 31.1 pg (27.0-34.0); MEAN CORPUSCULAR HGB CONC 34.5 g/dL (33.0-35.0); MEAN CORPUSCULAR VOLUME 90.1 fL (80.0-100.0); MEAN PLATELET VOLUME 8.1 fL (7.4-11.0); MONOCYTES # (AUTO) 0.1 x10^3/uL (0.3-0.8); MONOCYTES % (AUTO) 0.9 % (0.0-13.0); NEUTROPHILS # (AUTO) 5.7 x10^3/uL (2.2-4.8); NEUTROPHILS % (AUTO) 89.2 % (42.0-75.0); PLATELET COUNT 268 X10^3/uL (150.0-450.0); RED BLOOD COUNT 2.34 X10^6/uL (4.7-6.0); RED CELL DISTRIBUTION WIDTH 16.2 % (11.6-16.5); WHITE BLOOD COUNT 6.4 X10^3/uL (3.6-10.0)
[2018-06-30 06:32] LABS: PLATELET MORPHOLOGY COMMENT NORMAL (NORMAL)
[2018-06-30 06:41] LABS: ALBUMIN 2.6 g/dL (3.4-5.0); CALCIUM 7.9 mg/dL (8.5-10.1); CARBON DIOXIDE 15.4 mmol/L (21-32); CREATININE 4.04 mg/dL (0.70-1.30); TOTAL PROTEIN 5.7 g/dL (6.4-8.2)
[2018-06-30] MEDS ORDERED: NS 1/2 1000 ML IV 1,000 ML IV ONE ×2 (08:09→08:40)
[2018-06-30] MEDS: ROCEPHIN VIAL 1 GRAM IVP SCH (08:12)
[2018-06-30] MEDS: SOLU-Medrol 40 MG VIAL IVP SCH ×2 (08:12→16:11)
[2018-06-30] MEDS: NS 1/2 1000 ML IV 1,000 ML IV SCH ×2 (08:12→10:16)
[2018-06-30] MEDS ORDERED: NS 1000 ML 1,000 ML IV ONE (09:34)
[2018-06-30 10:12] LABS: HEMATOCRIT 24.6 % (42.0-54.0); HEMOGLOBIN 8.3 g/dL (13.5-18.0)
[2018-06-30] MEDS: NS 1000 ML 1,000 ML IV SCH ×2 (10:16→18:08)
[2018-06-30 10:43] LABS: BILIRUBIN,URINE NEGATIVE (NEGATIVE); BLOOD/HEMOGLOBIN,URINE 1+ (NEGATIVE); GLUCOSE, URINE NEGATIVE (NEGATIVE); KETONES,URINE NEGATIVE (NEGATIVE); LEUKOCYTE ESTERASE ,URINE NEGATIVE (NEGATIVE); NITRITES,URINE NEGATIVE (NEGATIVE); PROTEIN,URINE NEGATIVE (NEGATIVE); UROBILINOGEN,URINE NORMAL (NORMAL)
[2018-06-30] MEDS: PROTONIX INJ 40 MG VIAL IVP SCH (10:43)
[2018-06-30] MEDS: PEPCID 20 MG IV PREMIX* 20 MG/50 ML BAG IV SCH ×2 (10:43→21:39)
[2018-06-30 10:44] LABS: APPEARANCE,URINE SLIGHTLY HAZY (CLEAR); COLOR,URINE YELLOW (YELLOW)
[2018-06-30 10:50] LABS: AMORPHOUS SEDIMENT,UR TRACE /HPF (NEGATIVE); BACTERIA,URINE NEGATIVE /HPF (NEGATIVE); MUCUS,URINE FEW /HPF (NEGATIVE); SQUAMOUS EPITHELIAL CELL,UR NEGATIVE /HPF (NEGATIVE)
[2018-06-30] MEDS ORDERED: TYLENOL 325 MG TAB PO PRN (11:06)
[2018-06-30 15:11] LABS: HEMATOCRIT 24.4 % (42.0-54.0); HEMOGLOBIN 7.9 g/dL (13.5-18.0)
[2018-06-30] MEDS ORDERED: VISTARIL PO ONE (15:50)
[2018-06-30] MEDS: VISTARIL PO PRN (15:52)
[2018-06-30 17:52] LABS: HEMATOCRIT 25.9 % (42.0-54.0); HEMOGLOBIN 8.3 g/dL (13.5-18.0)
[2018-06-30] MEDS: HumuLIN R SUBCUT PRN ×2 (17:55→21:39)
[2018-06-30] MEDS ORDERED: HALDOL INJ IM ONE (20:34)
[2018-06-30 22:30] LABS: HEMATOCRIT 24.6 % (42.0-54.0); HEMOGLOBIN 7.8 g/dL (13.5-18.0)
[2018-07-01] MEDS: DUONEB 0.5 MG/3 MG NEB SCH ×7 (01:25→21:45)
[2018-07-01 01:51] LABS: HEMATOCRIT 23.6 % (42.0-54.0); HEMOGLOBIN 7.7 g/dL (13.5-18.0)
[2018-07-01] MEDS: SOLU-Medrol 40 MG VIAL IVP SCH ×3 (02:33→16:54)
[2018-07-01] MEDS: NS 1000 ML 1,000 ML IV SCH ×2 (02:33→11:52)
[2018-07-01 06:28] LABS: BASOPHILS % (AUTO) 0.1 % (0.2-1.0); HEMATOCRIT 21.5 % (42.0-54.0); HEMOGLOBIN 7.1 g/dL (13.5-18.0); LYMPHOCYTES # (AUTO) 0.8 X10^3/uL (1.3-2.9); LYMPHOCYTES % (AUTO) 5.1 % (21.0-51.0); MEAN CORPUSCULAR HEMOGLOBIN 29.7 pg (27.0-34.0); MEAN CORPUSCULAR HGB CONC 33.1 g/dL (33.0-35.0); MEAN CORPUSCULAR VOLUME 89.8 fL (80.0-100.0); MEAN PLATELET VOLUME 7.8 fL (7.4-11.0); MONOCYTES # (AUTO) 0.5 x10^3/uL (0.3-0.8); MONOCYTES % (AUTO) 3.2 % (0.0-13.0); NEUTROPHILS # (AUTO) 14.5 x10^3/uL (2.2-4.8); NEUTROPHILS % (AUTO) 91.6 % (42.0-75.0); PLATELET COUNT 297 X10^3/uL (150.0-450.0); RED CELL DISTRIBUTION WIDTH 15.9 % (11.6-16.5); WHITE BLOOD COUNT 15.9 X10^3/uL (3.6-10.0)
[2018-07-01] MEDS: HumuLIN R SUBCUT PRN ×4 (06:43→20:31)
[2018-07-01 07:01] LABS: ALBUMIN 2.7 g/dL (3.4-5.0); CREATININE 3.2 mg/dL (0.70-1.30); TOTAL PROTEIN 5.7 g/dL (6.4-8.2)
[2018-07-01 07:40] LABS: BAND NEUTROPHILS % 3 % (0-10); PLATELET MORPHOLOGY COMMENT NORMAL (NORMAL)
[2018-07-01] MEDS ORDERED: NS 100 ML IV + SPIKE MINIBAG* 100 ML IV ONE (08:44)
[2018-07-01] MEDS: PEPCID 20 MG IV PREMIX* 20 MG/50 ML BAG IV SCH (09:06)
[2018-07-01] MEDS: ROBITUSSIN DM PO SCH ×4 (09:06→20:16)
[2018-07-01] MEDS: PROTONIX INJ 40 MG VIAL IVP SCH (09:06)
[2018-07-01] MEDS: ROCEPHIN VIAL 1 GRAM IVP SCH (09:06)
[2018-07-01] MEDS ORDERED: PROCRIT or EPOGEN SC SCH (10:00)
[2018-07-01] MEDS ORDERED: FORTAZ or TAZICEF VIAL INJ IVP SCH (10:00)
[2018-07-01 10:10] LABS: HEMATOCRIT 21.6 % (42.0-54.0); HEMOGLOBIN 7.1 g/dL (13.5-18.0)
--- NOTE | 2018-07-01 11:15 | DR.H&P ---
H&P - History & Physical for Day of: H&P Date: 06/29/18 - Chief Complaint Chief Complaint: WEAKNESS, C/C/C, SOB, WHEEZING - History of Present Illness History of Present Illness: IS A 83 YEAR OLD PATIENT OF OURS WHO PRESENTED TO THE EMERGENCY ROOM VIA EMS WITHG COMPALINTS OF COUGH, COLD, CONGESTION, WHEEZING, AND SHORTNESS OF BREATH. FAMILY REPORTS THAT PATIENT HAS BEEN WEAKER THAN USUAL AND CONFUSED AT TIMES. THEY REPORT THAT PATIENT HAS BEEN INCONTINENT AT TIMES. THEY STATE THAT HE ALSO FELL YESTERDAY AND HIT HIS HEAD. HE HAS HAD SLURRED SPEECH SINCE YESTERDAY. PATIENT WAS RECENTLY IN THE HOSPITAL FOR A GI BLEED AND ANEMIA. ON ARRIVAL TO THE ER, VITALS WERE 98.0-91-20-100%-109/55. LABS WERE OBTAINED. ABNORMAL LAB VALUES INCLUDE THE FOLLOWING: RBC 2.71, HGB 8.3, HCT 24.4, CARBON DIOXIDE 20.8, BUN 95, CREATININE 3.96, GLUCOSE 128, CALCIUM 7.8, TOTAL PROTEIN 6.1, ALBUMIN 2.9. CARDIAC ENZYMES WITHIN NORMAL LIMITS. A CHEST XRAY WAS OBTAINED AND REVEALED: Borderline to mild cardiomegaly with post sternotomy findings. Small focal parenchymal density left base may represent chronic scarring or a more acute process in the lower lobe. Follow-up suggested. A BRAIN CT WAS OBTAINED AND REVEALED: No acute intracranial pathology. EKG REVEALED: SINUS RHYTHM WITH HR 91. HE WAS ADMITTED FOR FURTHER EVALUATION AND TREATMENT OF BRONCHOPNEUMONIA, ALTERED MENTAL STATUS, AND DEHYDRATION. HE WAS STARTED ON THE PNEUMONIA PROTOCOL WITH ROCEPHIN 1GM IV DAILY, IV FLUIDS, RESPIRATORY TREATMENTS, AND SUPPLEMENTAL OXYGEN. WE PLAN TO FOLLOW UP WITH AM LABS AND CHEST XRAY AND CONTINUE TO MONITOR. - Past Medical History Past Medical History: Hypertension - Past Surgical History Surgical History: Ortho Surgery - Family History Family Medical History: Diabetes Mellitus, Hypertension - Social History Does patient currently use any type of tobacco product: No Have you used tobacco products in the last 12 months: No Type of Tobacco Use: None Does any household member use tobacco: No Alcohol Use: None Drug Use: None - Medications Home Medications: morphine Allergy (Verified 06/29/18 16:57) CONTINUE taking the following medications clonazepam 0.5 mg PO BID PRN 06/29/18 [History] - Review of Systems Constitutional: Fever, Weakness Eyes: No Symptoms Reported ENT: See HPI Respiratory: See HPI, Cough, Shortness of Breath, Sputum, Wheezing Cardiovascular: No Symptoms Reported Gastrointestinal: No Symptoms Reported Genitourinary: No Symptoms Reported Musculoskeletal: No Symptoms Reported Skin: No Symptoms Reported Neurological: Weakness - Physical Exam Vital Signs: Temperature 98.2 F Pulse Rate [Left] 132 Pulse Rate 108 Respiratory Rate 20 Blood Pressure [Right Arm] 130/60 Blood Pressure [Left Arm] 105/53 Blood Pressure 109/55 O2 Sat by Pulse Oximetry 97 Oriented: Person Ear: Normal Throat: Tonsillar Hypertrophy Respiratory: Wheezes Throughout Cardiovascular: Normal. negative: S3, S4, Murmur : Normal Auscultation: Bowel Sounds: Normal Palpation: Normal Tenderness: Normal Skin: Normal Musculoskeletal: Normal Psychiatric: Normal Mood Description: Calm Affect: Normal Speech Pattern: Clear - Assessment/Plan (1) Pneumonia Qualifiers: Pneumonia type: due to unspecified organism Laterality: left Lung location: lower lobe of lung Qualified Code(s): J18.1 - Lobar pneumonia, unspecified organism Status: Acute Plan: PNEUMONIA PROTOCOL, ROCEPHIN 1GM IV DAILY, RESPIRATORY TREATMENTS, SUPPLEMENTAL OXYGEN, SOLU-MEDROL, CONTINUE TO MONITOR (2) Dehydration Status: Acute Plan: NORMAL SALINE, CONTINUE TO MONITOR (3) Altered mental status Qualifiers: Altered mental status type: transient alteration of awareness Qualified Code(s): R40.4 - Transient alteration of awareness Status: Acute - Allergies Allergies/Adverse Reactions: Allergies Allergy/AdvReac Type Severity Reaction Status Date / Time morphine Allergy Verified 06/29/18 16:57
[2018-07-01] MEDS: KLONOPIN TAB 0.5 MG PO SCH ×2 (11:51→20:16)
[2018-07-01] MEDS: PLAVIX PO SCH (11:51)
[2018-07-01] MEDS: VIBRAMYCIN 100 MG in D5W 250 ML IV 250 ML IV SCH ×2 (11:53→20:16)
[2018-07-01 15:12] LABS: HEMATOCRIT 23.9 % (42.0-54.0); HEMOGLOBIN 7.8 g/dL (13.5-18.0)
[2018-07-01] MEDS ORDERED: SEROquel TAB 100 MG PO SCH (18:00)
[2018-07-01] MEDS: ARICEPT TAB 5 MG PO SCH (20:17)
[2018-07-01] MEDS: NAMENDA TAB 10 MG PO SCH (20:18)
[2018-07-01] MEDS: SEROquel TAB 100 MG PO SCH (20:18)
[2018-07-01] MEDS: VISTARIL PO PRN (20:22)
[2018-07-01] MEDS ORDERED: XOPENEX 1.25 MG/3 ML NEBULE NEB SCH (21:15)
[2018-07-01 21:36] LABS: HEMATOCRIT 23.2 % (42.0-54.0); HEMOGLOBIN 7.6 g/dL (13.5-18.0)
--- NOTE | 2018-07-01 21:49 | PCM.PROG ---
Progress Note - Progress Note for Day of Date of Exam: 06/30/18 - Subjective Subjective: WAS ADMITTED FOR PNEUMONIA, DEHYDRATION, AMS, AND ACUTE RENAL FAILURE. TODAY, HE IS LYING IN BED WITH EYES CLOSED ON MORNING ROUNDS. HE AWAKENS AND RESPONDS EASILY TO VERBAL STIMULI. FAMILY REPORTS THAT HE HAS BEEN CONFUSED THROUGHOUT THE NIGHT AND ATTEMPTING TO GET OUT OF BED WITHOUT ASSISTANCE. ON EXAMINATION, HEART IS REGULAR IN RATE AND RHYTHM. BILATERAL LUNGS ARE NOTED WITH SCATTERED WHEEZING THROUGHOUT. ABDOMEN IS ROUND, SOFT, AND NON- TENDER WITH NORMAL BOWEL SOUNDS NOTED IN ALL QUADRANTS. HIS VITALS THIS MORNING ARE 98.0-92-20-98%-121/58. LABS WERE OBTAINED. ABNORMAL LAB VALUES INCLUDE THE FOLLOWING: RBC 2.34, HGB 7.3, HCT 21.1, CARBON DIOXIDE 15.4, BUN 105, CREATININE 4.4, GLUCOSE 222, CALCIUM 7.9, TOTAL PROTEIN 5.7, ALBUMIN 2.6. HE IS CURRENTLY RECEIVING IV ANTIBIOTICS, RESPIRATORY TREATMENTS, AND GENTLE IV HYDRATION. TODAY, WE WILL BOLUS HIM WITH ONE LITER OF NORMAL SALINE, THEN INCREASE IV FLUIDS TO 150ML/HR. WE WILL START PEPCID AND PROTONIX AND MONITOR H&H EVERY 4 HOURS. IF HEMOGLOBIN FALLS BELOW 7, WE WILL TRANSFUSE WITH TWO LITERS OF PACKED RED BLOOD CELLS. OTHERWISE, WE WILL FOLLOW UP WITH AM LABS AND CONTINUE TO MONITOR. - Past Medical Family Social History Past Med/Fam/Surg Hx: No changes since H&P Allergies: Allergies morphine Allergy (Verified 06/29/18 16:57) - Review of Systems ROS: No change since H&P - Vital Signs and I&O's Vital Signs: Temperature 98.1 F Pulse Rate [Left] 109 Pulse Rate 108 Respiratory Rate 22 Blood Pressure [Right Arm] 160/69 Blood Pressure [Left Arm] 105/53 Blood Pressure 109/55 O2 Sat by Pulse Oximetry 98 Intake and Output: Intake & Output 06/29/18 06/30/18 07/01/18 07/02/18 11:59 11:59 11:59 11:59 Intake Total 833 / 833 3020 / 3020 560 / 560 Output Total 1675 / 1675 Balance 833 / 833 1345 / 1345 560 / 560 - Physical Exam Oriented: Person Eyes: Normal Ear: Normal Nose: Normal Throat: Tonsillar Hypertrophy Respiratory: Generalized, Wheezes Cardiovascular: Normal. negative: S3, S4, Murmur : Normal Auscultation: Bowel Sounds: Normal Palpation: Normal Tenderness: Normal Skin: Normal Musculoskeletal: Normal Psychiatric: Normal Mood Description: Calm Affect: Normal Speech Pattern: Appropriate - Laboratory and Diagnostics Result Diagrams: 07/01/18 21:10 07/01/18 05:55 Labs: 06/29/18 17:00 Blood Blood Culture - Preliminary 06/29/18 18:51 Sputum - Expectorated Sputum Sputum Culture - Final 06/29/18 18:51 Sputum - Expectorated Sputum - Final Laboratory WBC 15.9 X10^3/uL (3.6-10.0) H D 07/01/18 05:55 RBC 2.40 X10^6/uL (4.7-6.0) L 07/01/18 05:55 Hgb 7.6 g/dL (13.5-18.0) L 07/01/18 21:10 Hct 23.2 % (42.0-54.0) L 07/01/18 21:10 MCV 89.8 fL (80.0-100.0) 07/01/18 05:55 MCH 29.7 pg (27.0-34.0) 07/01/18 05:55 MCHC 33.1 g/dL (33.0-35.0) 07/01/18 05:55 RDW 15.9 % (11.6-16.5) 07/01/18 05:55 Plt Count 297 X10^3/uL (150.0-450.0) 07/01/18 05:55 Plt Count Comment Adequate (ADEQUATE) 07/01/18 05:55 MPV 7.8 fL (7.4-11.0) 07/01/18 05:55 Neut % (Auto) 91.6 % (42.0-75.0) H 07/01/18 05:55 Lymph % (Auto) 5.1 % (21.0-51.0) L 07/01/18 05:55 [place] % (Auto) 3.2 % (0.0-13.0) 07/01/18 05:55 Eos % (Auto) 0.0 % (0.9-2.9) L 07/01/18 05:55 Baso % (Auto) 0.1 % (0.2-1.0) L 07/01/18 05:55 Neut # (Auto) 14.5 x10^3/uL (2.2-4.8) H 07/01/18 05:55 Lymph # (Auto) 0.8 X10^3/uL (1.3-2.9) L 07/01/18 05:55 [place] # (Auto) 0.5 x10^3/uL (0.3-0.8) 07/01/18 05:55 Eos # (Auto) 0.0 x10^3/uL (0.0-0.2) 07/01/18 05:55 Baso # (Auto) 0.0 X10^3/uL (0.0-0.1) 07/01/18 05:55 Absolute Nucleated RBC 0.0 /100WBC 07/01/18 05:55 Total Counted 100 07/01/18 05:55 Neutrophils % (Manual) 89 % (39-76) H 07/01/18 05:55 Band Neutrophils % 3 % (0-10) 07/01/18 05:55 Lymphocytes % (Manual) 7 % (13-43) L 07/01/18 05:55 Monocytes % (Manual) 1 % (4-9) L 07/01/18 05:55 Plt Morphology Comment Normal (NORMAL) 07/01/18 05:55 RBC Morphology Normal (NORMAL) 07/01/18 05:55 INR Target Range - 06/29/18 17:00 INR 1.01 (0.8-1.3) 06/29/18 17:00 APTT 27.4 SECONDS (22.9-36.5) 06/29/18 17:00 PTT Comment - 06/29/18 17:00 Sodium 139 mmol/L (136-145) 07/01/18 05:55 Corrected Sodium 141 mmol/L (136-145) 07/01/18 05:55 Potassium 4.5 mmol/L (3.5-5.1) 07/01/18 05:55 Chloride 109 mmol/L (98-107) H 07/01/18 05:55 Carbon Dioxide 13.0 mmol/L (21-32) L* 07/01/18 05:55 BUN 90 mg/dL (7-18) H 07/01/18 05:55 Creatinine 3.20 mg/dL (0.70-1.30) H 07/01/18 05:55 Est GFR (MDRD) Af Amer 24 (>60) L 07/01/18 05:55 Est GFR (MDRD) Non-Af 20 (>60) L 07/01/18 05:55 Glucose 185 mg/dL (65-99) H 07/01/18 05:55 POC Glucose (mg/dL) 227 mg/dL (65-99) H 07/01/18 19:47 Calcium 8.0 mg/dL (8.5-10.1) L 07/01/18 05:55 Corrected Calcium 9.0 mg/dL (8.5-10.1) 07/01/18 05:55 Magnesium 2.3 mg/dL (1.7-2.9) 06/29/18 17:00 Total Bilirubin 0.10 mg/dL (0.2-1.0) L 07/01/18 05:55 AST 54 Units/L (15-37) H 07/01/18 05:55 ALT 23 Units/L (12-78) 07/01/18 05:55 Alkaline Phosphatase 76 Units/L (46-116) 07/01/18 05:55 Creatine Kinase 71 Units/L (39-308) 06/29/18 17:00 CK-MB (CK-2) 2.3 ng/mL (0-4.0) 06/29/18 17:00 CK/CKMB % Calc 3.2 % (<4) 06/29/18 17:00 Troponin I < 0.02 ng/mL (0-1.5) 06/29/18 17:00 Total Protein 5.7 g/dL (6.4-8.2) L 07/01/18 05:55 Albumin 2.7 g/dL (3.4-5.0) L 07/01/18 05:55 Globulin 3.0 g/dL (2.5-4.5) 07/01/18 05:55 Albumin/Globulin Ratio 0.9 Ratio (1.1-2.1) L 07/01/18 05:55 Specimen Type Catherized urine 06/30/18 10:10 Urine Color Yellow (YELLOW) 06/30/18 10:10 Urine Appearance Slightly hazy (CLEAR) 06/30/18 10:10 Urine pH 5.0 (5.0 - 8.0) 06/30/18 10:10 Ur Specific [place] 1.015 (1.000-1.030) 06/30/18 10:10 Urine Protein Negative (NEGATIVE) 06/30/18 10:10 Urine Glucose (UA) Negative (NEGATIVE) 06/30/18 10:10 Urine Ketones Negative (NEGATIVE) 06/30/18 10:10 Urine Occult Blood 1+ (NEGATIVE) 06/30/18 10:10 Urine Nitrite Negative (NEGATIVE) 06/30/18 10:10 Urine Bilirubin Negative (NEGATIVE) 06/30/18 10:10 Urine Urobilinogen Normal (NORMAL) 06/30/18 10:10 Ur Leukocyte Esterase Negative (NEGATIVE) 06/30/18 10:10 Urine RBC 3-5 /HPF (NONE SEEN) 06/30/18 10:10 Urine WBC None seen /HPF (NONE SEEN) 06/30/18 10:10 Ur Squamous Epith Cells Negative /HPF (NEGATIVE) 06/30/18 10:10 Amorphous Sediment Trace /HPF (NEGATIVE) 06/30/18 10:10 Urine Bacteria Negative /HPF (NEGATIVE) 06/30/18 10:10 Urine Mucus Few /HPF (NEGATIVE) 06/30/18 10:10 Ur Culture Indicated? No/not indicated 06/30/18 10:10 - Plan (1) Pneumonia Status: Acute Qualifiers: Pneumonia type: due to unspecified organism Laterality: left Lung location: lower lobe of lung Qualified Code(s): J18.1 - Lobar pneumonia, unspecified organism Plan: PNEUMONIA PROTOCOL, ROCEPHIN 1GM IV DAILY, RESPIRATORY TREATMENTS, SUPPLEMENTAL OXYGEN, SOLU-MEDROL, CONTINUE TO MONITOR (2) Dehydration Status: Acute Plan: NORMAL SALINE, CONTINUE TO MONITOR (3) Altered mental status Status: Acute Qualifiers: Altered mental status type: transient alteration of awareness Qualified Code(s): R40.4 - Transient alteration of awareness (4) Acute renal failure Status: Acute Qualifiers: Acute renal failure type: unspecified Qualified Code(s): N17.9 - Acute kidney failure, unspecified Plan: NORMAL SALINE BOLUS, THEN NORMAL SALINE AT 150ML/HR (5) Anemia Status: Acute Qualifiers: Anemia type: iron deficiency 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
[2018-07-02] MEDS: NS 1000 ML 1,000 ML IV SCH (01:37)
[2018-07-02] MEDS: SOLU-Medrol 40 MG VIAL IVP SCH ×3 (01:37→17:18)
[2018-07-02 05:27] LABS: ALBUMIN 2.9 g/dL (3.4-5.0); CALCIUM 8.1 mg/dL (8.5-10.1); CREATININE 3.3 mg/dL (0.70-1.30); TOTAL PROTEIN 5.9 g/dL (6.4-8.2)
[2018-07-02 05:31] LABS: BASOPHILS % (AUTO) 0.1 % (0.2-1.0); HEMATOCRIT 21.4 % (42.0-54.0); LYMPHOCYTES # (AUTO) 0.7 X10^3/uL (1.3-2.9); LYMPHOCYTES % (AUTO) 4.1 % (21.0-51.0); MEAN CORPUSCULAR HEMOGLOBIN 29.1 pg (27.0-34.0); MEAN CORPUSCULAR HGB CONC 32.5 g/dL (33.0-35.0); MEAN CORPUSCULAR VOLUME 89.4 fL (80.0-100.0); MEAN PLATELET VOLUME 7.8 fL (7.4-11.0); MONOCYTES # (AUTO) 0.8 x10^3/uL (0.3-0.8); NEUTROPHILS # (AUTO) 14.8 x10^3/uL (2.2-4.8); NEUTROPHILS % (AUTO) 90.8 % (42.0-75.0); PLATELET COUNT 310 X10^3/uL (150.0-450.0); RED CELL DISTRIBUTION WIDTH 16.3 % (11.6-16.5); WHITE BLOOD COUNT 16.3 X10^3/uL (3.6-10.0)
[2018-07-02] MEDS: VISTARIL PO PRN (05:32)
[2018-07-02 05:38] LABS: CARBON DIOXIDE 12.2 mmol/L (21-32)
[2018-07-02 05:56] LABS: BAND NEUTROPHILS % 3 % (0-10); PLATELET MORPHOLOGY COMMENT NORMAL (NORMAL)
[2018-07-02 05:57] LABS: HYPOCHROMASIA SLIGHT
--- NOTE | 2018-07-02 07:38 | RAD ---
HISTORY: Follow-up pneumonia Study: Chest AP portable Comparison: 06/29/2018 Findings: The patient is status post median sternotomy. The heart is mildly enlarged. No congestive heart failure is noted. No definite acute alveolar infiltrates are identified. The left lung base appears clear now. The bony thorax is unremarkable. IMPRESSION: Mild cardiomegaly without congestive heart failure Left lung base now clear Reported By:
[2018-07-02] MEDS ORDERED: PEPCID 20 MG IV PREMIX* 20 MG/50 ML BAG IV SCH (09:00)
[2018-07-02] MEDS: VIBRAMYCIN 100 MG in D5W 250 ML IV 250 ML IV SCH ×2 (09:51→21:02)
[2018-07-02] MEDS: PROTONIX INJ 40 MG VIAL IVP SCH (09:51)
[2018-07-02] MEDS: NAMENDA TAB 10 MG PO SCH ×3 (09:52→23:57)
[2018-07-02] MEDS: PLAVIX PO SCH (09:52)
[2018-07-02] MEDS: ROBITUSSIN DM PO SCH ×5 (09:56→23:58)
[2018-07-02] MEDS: KLONOPIN TAB 1 MG PO SCH ×4 (09:59→23:57)
[2018-07-02] MEDS: FORTAZ or TAZICEF VIAL INJ IVP SCH (11:18)
[2018-07-02] MEDS: XOPENEX 1.25 MG/3 ML NEBULE NEB SCH ×2 (12:08→17:05)
[2018-07-02] MEDS: HumuLIN R SUBCUT PRN (13:00)
[2018-07-02] MEDS: PROTONIX INJ 40 MG VIAL 80 MG in NS 100 ML IV 80 ML IV SCH ×2 (14:18→21:09)
[2018-07-02] MEDS: NS 1000 ML 1,000 ML with SODIUM BICARBONATE 8.4% INJ ADULT 50 ML IV SCH ×4 (14:18→17:19)
--- NOTE | 2018-07-02 20:40 | DR.CONSULT ---
Consult - Consultation for Day of: Date: 07/02/18 - Chief Complaint Chief Complaint: Patient referred for anemia. Patient with AMS unable to obtain review of systems. - History of Present Illness History of Present Illness: Patient is a 83 yo male who was referred for anemia. Patient with AMS unable to obtain review of systems. Son states that he has been having black tarry stools since before . He states he was in the hospital in may with anemia and was seen by Dr. Merino as outpatient and was goign to have an EGD but has not been done. He states that his father was complaining of abdominal pain bt has not recently. Hgb is 7.0 down from 8.2, Hct 21.4, BUN 91, Creatinine 3.3. had positive hemoccult on 06/12. patient recieved 2 units of PRBC on 06/12. Son states he had a colonoscopy but is was a long time ago. Patient is noted to have tenderness on palpitation of epigastric area. - Past Medical History Past Medical History: Hypertension - Past Surgical History Surgical History: Ortho Surgery - Family History Family Medical History: Diabetes Mellitus, Hypertension - Social History Does patient currently use any type of tobacco product: No Have you used tobacco products in the last 12 months: No Type of Tobacco Use: None Does any household member use tobacco: No Alcohol Use: None Drug Use: None - Medications Home Medications: morphine Allergy (Verified 06/29/18 16:57) CONTINUE taking the following medications clonazepam 0.5 mg PO BID PRN 06/29/18 [History] - Physical Exam Vital Signs: Temperature 98.6 F Pulse Rate [Left] 109 Pulse Rate 108 Respiratory Rate 20 Blood Pressure [Right Arm] 126/69 Blood Pressure [Left Arm] 105/53 Blood Pressure 109/55 O2 Sat by Pulse Oximetry 98 Oriented: Not Oriented Eyes: Normal Ear: Normal Nose: Normal Throat: Normal Respiratory: Clear Throughout Cardiovascular: Normal Auscultation: Bowel Sounds: Normal Palpation: Normal, Other (no distention). negative: Spleen Enlarged, Liver Enlarged, Mass Pulsatile Tenderness: Epigastric Skin: Normal Musculoskeletal: Normal Psychiatric: Agitation Mood Description: Anxious - Plan Plan: Assessment. 1. Anemia, melena. Plan. 1. Monitor Hgb transfuse as need, protonix drip, EGD tomororw, NPO past midnight, hold plavix. Plan reviewed with Dr. Serrano - Allergies Allergies/Adverse Reactions: Allergies Allergy/AdvReac Type Severity Reaction Status Date / Time morphine Allergy Verified 06/29/18 16:57
[2018-07-02] MEDS: ARICEPT TAB 5 MG PO SCH ×2 (21:01→23:58)
[2018-07-02] MEDS: SEROquel TAB 100 MG PO SCH (21:02)
[2018-07-02 21:51] LABS: HEMATOCRIT 20.4 % (42.0-54.0)
[2018-07-02 22:00] LABS: HEMOGLOBIN 6.8 g/dL (13.5-18.0)
[2018-07-03] MEDS: XOPENEX 1.25 MG/3 ML NEBULE NEB SCH ×4 (01:17→17:19)
[2018-07-03] MEDS: SOLU-Medrol 40 MG VIAL IVP SCH (01:58)
[2018-07-03] MEDS ORDERED: NS 250 ML IV 250 ML IV ONE ×2 (02:27→14:38)
[2018-07-03] MEDS: NS 1000 ML 1,000 ML with SODIUM BICARBONATE 8.4% INJ ADULT 50 ML IV SCH ×4 (04:32→12:07)
[2018-07-03] MEDS: KLONOPIN TAB 1 MG PO SCH ×4 (06:19→21:52)
[2018-07-03] MEDS: HumuLIN R SUBCUT PRN (06:26)
[2018-07-03] MEDS: FORTAZ or TAZICEF VIAL INJ IVP SCH (09:07)
[2018-07-03] MEDS: ROBITUSSIN DM PO SCH ×5 (09:07→21:54)
[2018-07-03] MEDS: NAMENDA TAB 10 MG PO SCH ×2 (09:07→21:51)
[2018-07-03] MEDS: PROTONIX INJ 40 MG VIAL 80 MG in NS 100 ML IV 80 ML IV SCH ×2 (10:42→12:37)
[2018-07-03] MEDS ORDERED: STERILE WATER IRRIGATION IR ONE (13:39)
[2018-07-03] MEDS: VIBRAMYCIN 100 MG in D5W 250 ML IV 250 ML IV SCH ×2 (14:45→21:49)
[2018-07-03] MEDS ORDERED: DIPRIVAN VIAL 20 ML ONE (14:51)
[2018-07-03 16:05] LABS: BASOPHILS % (AUTO) 0.1 % (0.2-1.0); HEMATOCRIT 31.1 % (42.0-54.0); HEMOGLOBIN 10.3 g/dL (13.5-18.0); LYMPHOCYTES # (AUTO) 0.6 X10^3/uL (1.3-2.9); LYMPHOCYTES % (AUTO) 5.2 % (21.0-51.0); MEAN CORPUSCULAR HEMOGLOBIN 30.2 pg (27.0-34.0); MEAN CORPUSCULAR HGB CONC 33.2 g/dL (33.0-35.0); MEAN CORPUSCULAR VOLUME 90.8 fL (80.0-100.0); MEAN PLATELET VOLUME 7.6 fL (7.4-11.0); MONOCYTES # (AUTO) 0.9 x10^3/uL (0.3-0.8); MONOCYTES % (AUTO) 7.3 % (0.0-13.0); NEUTROPHILS # (AUTO) 10.4 x10^3/uL (2.2-4.8); NEUTROPHILS % (AUTO) 87.4 % (42.0-75.0); PLATELET COUNT 279 X10^3/uL (150.0-450.0); RED BLOOD COUNT 3.42 X10^6/uL (4.7-6.0); RED CELL DISTRIBUTION WIDTH 16.7 % (11.6-16.5); WHITE BLOOD COUNT 11.9 X10^3/uL (3.6-10.0)
[2018-07-03 16:22] LABS: CALCIUM 8.7 mg/dL (8.5-10.1); CARBON DIOXIDE 16.3 mmol/L (21-32); COR CA(FOR HYPOALB) 9.5 mg/dL (8.5-10.1); CREATININE 3.48 mg/dL (0.70-1.30); TOTAL PROTEIN 5.9 g/dL (6.4-8.2)
--- NOTE | 2018-07-03 19:14 | PCM.PROG ---
Progress Note - Progress Note for Day of Date of Exam: 07/01/18 - Subjective Subjective: WAS ADMITTED FOR PNEUMONIA, DEHYDRATION, AMS, AND ACUTE RENAL FAILURE. TODAY, HE IS LYING IN BED WITH EYES CLOSED ON MORNING ROUNDS. HE AWAKENS AND RESPONDS EASILY TO VERBAL STIMULI. FAMILY REPORTS THAT HE HAS BEEN CONFUSED THROUGHOUT THE NIGHT AND ATTEMPTING TO GET OUT OF BED WITHOUT ASSISTANCE. ON EXAMINATION, HE IS TACHYCARDIC. BILATERAL LUNGS ARE NOTED WITH SCATTERED WHEEZING THROUGHOUT. ABDOMEN IS ROUND, SOFT, AND NON-TENDER WITH NORMAL BOWEL SOUNDS NOTED IN ALL QUADRANTS. HIS VITALS THIS MORNING ARE 98.2-132-20-97%-130/60. LABS WERE OBTAINED. ABNORMAL LAB VALUES INCLUDE THE FOLLOWING: WBC 15.9, RBC 2.40, HGB 7.1, HCT 21.5, CHLORIDE 109, CARBON DIOXIDE 13.0, BUN 90, CREATININE 3.20, GLUCOSE 185, CALCIUM 8.0, TOTAL BILI 0.10, AST 54, TOTAL PROTEIN 5.7, ALBUMIN 2.7. HE IS CURRENTLY RECEIVING IV ANTIBIOTICS, RESPIRATORY TREATMENTS, AND IV HYDRATION. TODAY, WE WILL [place]IT [id number] [place] ON SUNDAY, SUNDAY, AND FRIDAYS. WE WILL RESTART HIS KLONOPIN. OTHERWISE, WE WILL FOLLOW UP WITH AM LABS AND CONTINUE TO MONITOR. - Past Medical Family Social History Past Med/Fam/Surg Hx: No changes since H&P Allergies: Allergies morphine Allergy (Verified 06/29/18 16:57) - Review of Systems ROS: No change since H&P - Vital Signs and I&O's Vital Signs: Temperature 97.6 F Pulse Rate [Left] 97 Pulse Rate 103 Respiratory Rate 24 Blood Pressure [Right Arm] 139/65 Blood Pressure [Left Arm] 105/53 Blood Pressure 109/55 O2 Sat by Pulse Oximetry 97 Intake and Output: Intake & Output 07/01/18 07/02/18 07/03/18 07/04/18 11:59 11:59 11:59 11:59 Intake Total 3020 / 3020 2340 / 2340 680 / 680 200 / 200 Output Total 1675 / 1675 Balance 1345 / 1345 2340 / 2340 680 / 680 200 / 200 - Physical Exam Oriented: Not Oriented Eyes: Normal Ear: Normal Nose: Normal Throat: Normal Respiratory: Generalized, Wheezes Cardiovascular: Normal : Normal Auscultation: Bowel Sounds: Normal Palpation: Normal Tenderness: Epigastric Skin: Normal Musculoskeletal: Normal Psychiatric: Agitation Mood Description: Anxious Affect: Normal Speech Pattern: Appropriate - Laboratory and Diagnostics Result Diagrams: 07/03/18 15:58 07/03/18 15:58 Labs: 07/02/18 20:20 Sputum - Expectorated Sputum - Final 06/29/18 17:00 Blood Blood Culture - Preliminary 06/29/18 18:51 Sputum - Expectorated Sputum Sputum Culture - Final 06/29/18 18:51 Sputum - Expectorated Sputum - Final Laboratory WBC 11.9 X10^3/uL (3.6-10.0) H 07/03/18 15:58 RBC 3.42 X10^6/uL (4.7-6.0) L 07/03/18 15:58 Hgb 10.3 g/dL (13.5-18.0) L D 07/03/18 15:58 Hct 31.1 % (42.0-54.0) L 07/03/18 15:58 MCV 90.8 fL (80.0-100.0) 07/03/18 15:58 MCH 30.2 pg (27.0-34.0) 07/03/18 15:58 MCHC 33.2 g/dL (33.0-35.0) 07/03/18 15:58 RDW 16.7 % (11.6-16.5) H 07/03/18 15:58 Plt Count 279 X10^3/uL (150.0-450.0) 07/03/18 15:58 Plt Count Comment Adequate (ADEQUATE) 07/02/18 04:30 MPV 7.6 fL (7.4-11.0) 07/03/18 15:58 Neut % (Auto) 87.4 % (42.0-75.0) H 07/03/18 15:58 Lymph % (Auto) 5.2 % (21.0-51.0) L 07/03/18 15:58 [place] % (Auto) 7.3 % (0.0-13.0) 07/03/18 15:58 Eos % (Auto) 0.0 % (0.9-2.9) L 07/03/18 15:58 Baso % (Auto) 0.1 % (0.2-1.0) L 07/03/18 15:58 Neut # (Auto) 10.4 x10^3/uL (2.2-4.8) H 07/03/18 15:58 Lymph # (Auto) 0.6 X10^3/uL (1.3-2.9) L 07/03/18 15:58 [place] # (Auto) 0.9 x10^3/uL (0.3-0.8) H 07/03/18 15:58 Eos # (Auto) 0.0 x10^3/uL (0.0-0.2) 07/03/18 15:58 Baso # (Auto) 0.0 X10^3/uL (0.0-0.1) 07/03/18 15:58 Absolute Nucleated RBC 0.4 /100WBC 07/03/18 15:58 Total Counted 100 07/02/18 04:30 Neutrophils % (Manual) 91 % (39-76) H 07/02/18 04:30 Band Neutrophils % 3 % (0-10) 07/02/18 04:30 Lymphocytes % (Manual) 3 % (13-43) L 07/02/18 04:30 Monocytes % (Manual) 3 % (4-9) L 07/02/18 04:30 Plt Morphology Comment Normal (NORMAL) 07/02/18 04:30 RBC Morphology Normal (NORMAL) 07/02/18 04:30 Dimorphic RBCs A 07/02/18 04:30 Hypochromasia Slight A 07/02/18 04:30 INR Target Range - 06/29/18 17:00 INR 1.01 (0.8-1.3) 06/29/18 17:00 APTT 27.4 SECONDS (22.9-36.5) 06/29/18 17:00 PTT Comment - 06/29/18 17:00 Sodium 143 mmol/L (136-145) 07/03/18 15:58 Corrected Sodium 145 mmol/L (136-145) 07/03/18 15:58 Potassium 4.1 mmol/L (3.5-5.1) 07/03/18 15:58 Chloride 110 mmol/L (98-107) H 07/03/18 15:58 Carbon Dioxide 16.3 mmol/L (21-32) L 07/03/18 15:58 BUN 96 mg/dL (7-18) H 07/03/18 15:58 Creatinine 3.48 mg/dL (0.70-1.30) H 07/03/18 15:58 Est GFR (MDRD) Af Amer 22 (>60) L 07/03/18 15:58 Est GFR (MDRD) Non-Af 18 (>60) L 07/03/18 15:58 Glucose 178 mg/dL (65-99) H 07/03/18 15:58 POC Glucose (mg/dL) 184 mg/dL (65-99) H 07/03/18 16:12 Calcium 8.7 mg/dL (8.5-10.1) 07/03/18 15:58 Corrected Calcium 9.5 mg/dL (8.5-10.1) 07/03/18 15:58 Magnesium 2.3 mg/dL (1.7-2.9) 06/29/18 17:00 Total Bilirubin 0.40 mg/dL (0.2-1.0) 07/03/18 15:58 AST 42 Units/L (15-37) H 07/03/18 15:58 ALT 43 Units/L (12-78) 07/03/18 15:58 Alkaline Phosphatase 73 Units/L (46-116) 07/03/18 15:58 Creatine Kinase 71 Units/L (39-308) 06/29/18 17:00 CK-MB (CK-2) 2.3 ng/mL (0-4.0) 06/29/18 17:00 CK/CKMB % Calc 3.2 % (<4) 06/29/18 17:00 Troponin I < 0.02 ng/mL (0-1.5) 06/29/18 17:00 Total Protein 5.9 g/dL (6.4-8.2) L 07/03/18 15:58 Albumin 3.0 g/dL (3.4-5.0) L 07/03/18 15:58 Globulin 2.9 g/dL (2.5-4.5) 07/03/18 15:58 Albumin/Globulin Ratio 1.0 Ratio (1.1-2.1) L 07/03/18 15:58 Specimen Type Catherized urine 06/30/18 10:10 Urine Color Yellow (YELLOW) 06/30/18 10:10 Urine Appearance Slightly hazy (CLEAR) 06/30/18 10:10 Urine pH 5.0 (5.0 - 8.0) 06/30/18 10:10 Ur Specific [place] 1.015 (1.000-1.030) 06/30/18 10:10 Urine Protein Negative (NEGATIVE) 06/30/18 10:10 Urine Glucose (UA) Negative (NEGATIVE) 06/30/18 10:10 Urine Ketones Negative (NEGATIVE) 06/30/18 10:10 Urine Occult Blood 1+ (NEGATIVE) 06/30/18 10:10 Urine Nitrite Negative (NEGATIVE) 06/30/18 10:10 Urine Bilirubin Negative (NEGATIVE) 06/30/18 10:10 Urine Urobilinogen Normal (NORMAL) 06/30/18 10:10 Ur Leukocyte Esterase Negative (NEGATIVE) 06/30/18 10:10 Urine RBC 3-5 /HPF (NONE SEEN) 06/30/18 10:10 Urine WBC None seen /HPF (NONE SEEN) 06/30/18 10:10 Ur Squamous Epith Cells Negative /HPF (NEGATIVE) 06/30/18 10:10 Amorphous Sediment Trace /HPF (NEGATIVE) 06/30/18 10:10 Urine Bacteria Negative /HPF (NEGATIVE) 06/30/18 10:10 Urine Mucus Few /HPF (NEGATIVE) 06/30/18 10:10 Ur Culture Indicated? No/not indicated 06/30/18 10:10 Stool Description 2g,dark brown,unform 07/03/18 09:00 Stl Occult Blood (IFOB) Positive (NEGATIVE) A 07/03/18 09:00 Blood Type A POSITIVE 07/03/18 00:10 Antibody Screen Negative 07/03/18 00:10 Crossmatch See Detail 07/03/18 00:10 - Plan (1) Pneumonia Status: Acute Qualifiers: Pneumonia type: due to unspecified organism Laterality: left Lung location: lower lobe of lung Qualified Code(s): J18.1 - Lobar pneumonia, unspecified organism Plan: PNEUMONIA PROTOCOL, ROCEPHIN 1GM IV DAILY, RESPIRATORY TREATMENTS, SUPPLEMENTAL OXYGEN, SOLU-MEDROL, CONTINUE TO MONITOR (2) Dehydration Status: Acute Plan: NORMAL SALINE, CONTINUE TO MONITOR (3) Altered mental status Status: Acute Qualifiers: Altered mental status type: transient alteration of awareness Qualified Code(s): R40.4 - Transient alteration of awareness Plan: KLONOPIN 0.5MG PO BID, CONTINUE TO MONITOR (4) Acute renal failure Status: Acute Qualifiers: Acute renal failure type: unspecified Qualified Code(s): N17.9 - Acute kidney failure, unspecified Plan: NORMAL SALINE BOLUS, THEN NORMAL SALINE AT 150ML/HR (5) Anemia Status: Acute Qualifiers: Anemia type: iron deficiency Iron deficiency anemia type: chronic blood loss Qualified Code(s): D50.0 - Iron deficiency anemia secondary to blood loss (chronic) Plan: PROCRIT 10,000 SC ON SUN, SUN, SUNDAY, MONITOR H&H
--- NOTE | 2018-07-03 19:20 | PCM.PROG ---
Progress Note - Progress Note for Day of Date of Exam: 07/02/18 - Subjective Subjective: WAS ADMITTED FOR PNEUMONIA, DEHYDRATION, AMS, AND ACUTE RENAL FAILURE. TODAY, HE IS LYING IN BED WITH EYES CLOSED ON MORNING ROUNDS. HE AWAKENS AND RESPONDS EASILY TO VERBAL STIMULI. FAMILY REPORTS THAT HE HAS CONTINUED WITH CONFUSION AND ALTERED MENTAL STATUS. HE IS GETTING OUT OF BED WITHOUT ASSISTANCE. ON EXAMINATION, HEART IS REGULAR IN RATE AND RHYTHM. BILATERAL LUNGS ARE NOTED WITH SCATTERED WHEEZING THROUGHOUT. ABDOMEN IS ROUND, SOFT, AND NON-TENDER WITH NORMAL BOWEL SOUNDS NOTED IN ALL QUADRANTS. HIS VITALS THIS MORNING ARE 98.4-109-24-98%-127/62. LABS WERE OBTAINED. ABNORMAL LAB VALUES INCLUDE THE FOLLOWING: WBC 16.3, RBC 2.40, HGB 7.0, HCT 21.4, CHLORIDE 108, CARB ON DIOXIDE 12.2, BUN 91, CREATININE 3.30, GLUCOSE 163, CALCIUM 8.1, AST 59, TOTAL PROTEIN 5.9, ALBUMIN 2.9. HE IS CURRENTLY RECEIVING IV ANTIBIOTICS, RESPIRATORY TREATMENTS, AND IV HYDRATION. TODAY, WE WILL CONTINUE TO MONITOR H&H. WE WILL START KLONOPIN 1MG PO TID AND CONSULT GASTROENTEROLOGY. OTHERWISE, WE WILL FOLLOW UP WITH AM LABS AND CONTINUE TO MONITOR. - Past Medical Family Social History Past Med/Fam/Surg Hx: No changes since H&P Allergies: Allergies morphine Allergy (Verified 06/29/18 16:57) - Review of Systems ROS: No change since H&P - Vital Signs and I&O's Vital Signs: Temperature 97.6 F Pulse Rate [Left] 97 Pulse Rate 103 Respiratory Rate 24 Blood Pressure [Right Arm] 139/65 Blood Pressure [Left Arm] 105/53 Blood Pressure 109/55 O2 Sat by Pulse Oximetry 97 Intake and Output: Intake & Output 07/01/18 07/02/18 07/03/18 07/04/18 11:59 11:59 11:59 11:59 Intake Total 3020 / 3020 2340 / 2340 680 / 680 200 / 200 Output Total 1675 / 1675 Balance 1345 / 1345 2340 / 2340 680 / 680 200 / 200 - Physical Exam Oriented: Not Oriented Eyes: Normal Ear: Normal Nose: Normal Throat: Normal Respiratory: Generalized, Wheezes Cardiovascular: Normal : Normal Auscultation: Bowel Sounds: Normal Tenderness: Epigastric Skin: Normal Musculoskeletal: Normal Psychiatric: Agitation Mood Description: Anxious Affect: Normal Speech Pattern: Appropriate - Laboratory and Diagnostics Result Diagrams: 07/03/18 15:58 07/03/18 15:58 Labs: 07/02/18 20:20 Sputum - Expectorated Sputum - Final 06/29/18 17:00 Blood Blood Culture - Preliminary 06/29/18 18:51 Sputum - Expectorated Sputum Sputum Culture - Final 06/29/18 18:51 Sputum - Expectorated Sputum - Final Laboratory WBC 11.9 X10^3/uL (3.6-10.0) H 07/03/18 15:58 RBC 3.42 X10^6/uL (4.7-6.0) L 07/03/18 15:58 Hgb 10.3 g/dL (13.5-18.0) L D 07/03/18 15:58 Hct 31.1 % (42.0-54.0) L 07/03/18 15:58 MCV 90.8 fL (80.0-100.0) 07/03/18 15:58 MCH 30.2 pg (27.0-34.0) 07/03/18 15:58 MCHC 33.2 g/dL (33.0-35.0) 07/03/18 15:58 RDW 16.7 % (11.6-16.5) H 07/03/18 15:58 Plt Count 279 X10^3/uL (150.0-450.0) 07/03/18 15:58 Plt Count Comment Adequate (ADEQUATE) 07/02/18 04:30 MPV 7.6 fL (7.4-11.0) 07/03/18 15:58 Neut % (Auto) 87.4 % (42.0-75.0) H 07/03/18 15:58 Lymph % (Auto) 5.2 % (21.0-51.0) L 07/03/18 15:58 [place] % (Auto) 7.3 % (0.0-13.0) 07/03/18 15:58 Eos % (Auto) 0.0 % (0.9-2.9) L 07/03/18 15:58 Baso % (Auto) 0.1 % (0.2-1.0) L 07/03/18 15:58 Neut # (Auto) 10.4 x10^3/uL (2.2-4.8) H 07/03/18 15:58 Lymph # (Auto) 0.6 X10^3/uL (1.3-2.9) L 07/03/18 15:58 [place] # (Auto) 0.9 x10^3/uL (0.3-0.8) H 07/03/18 15:58 Eos # (Auto) 0.0 x10^3/uL (0.0-0.2) 07/03/18 15:58 Baso # (Auto) 0.0 X10^3/uL (0.0-0.1) 07/03/18 15:58 Absolute Nucleated RBC 0.4 /100WBC 07/03/18 15:58 Total Counted 100 07/02/18 04:30 Neutrophils % (Manual) 91 % (39-76) H 07/02/18 04:30 Band Neutrophils % 3 % (0-10) 07/02/18 04:30 Lymphocytes % (Manual) 3 % (13-43) L 07/02/18 04:30 Monocytes % (Manual) 3 % (4-9) L 07/02/18 04:30 Plt Morphology Comment Normal (NORMAL) 07/02/18 04:30 RBC Morphology Normal (NORMAL) 07/02/18 04:30 Dimorphic RBCs A 07/02/18 04:30 Hypochromasia Slight A 07/02/18 04:30 INR Target Range - 06/29/18 17:00 INR 1.01 (0.8-1.3) 06/29/18 17:00 APTT 27.4 SECONDS (22.9-36.5) 06/29/18 17:00 PTT Comment - 06/29/18 17:00 Sodium 143 mmol/L (136-145) 07/03/18 15:58 Corrected Sodium 145 mmol/L (136-145) 07/03/18 15:58 Potassium 4.1 mmol/L (3.5-5.1) 07/03/18 15:58 Chloride 110 mmol/L (98-107) H 07/03/18 15:58 Carbon Dioxide 16.3 mmol/L (21-32) L 12/12/18 15:58 BUN 96 mg/dL (7-18) H 07/03/18 15:58 Creatinine 3.48 mg/dL (0.70-1.30) H 07/03/18 15:58 Est GFR (MDRD) Af Amer 22 (>60) L 07/03/18 15:58 Est GFR (MDRD) Non-Af 18 (>60) L 07/03/18 15:58 Glucose 178 mg/dL (65-99) H 07/03/18 15:58 POC Glucose (mg/dL) 184 mg/dL (65-99) H 07/03/18 16:12 Calcium 8.7 mg/dL (8.5-10.1) 07/03/18 15:58 Corrected Calcium 9.5 mg/dL (8.5-10.1) 07/03/18 15:58 Magnesium 2.3 mg/dL (1.7-2.9) 06/29/18 17:00 Total Bilirubin 0.40 mg/dL (0.2-1.0) 07/03/18 15:58 AST 42 Units/L (15-37) H 07/03/18 15:58 ALT 43 Units/L (12-78) 07/03/18 15:58 Alkaline Phosphatase 73 Units/L (46-116) 07/03/18 15:58 Creatine Kinase 71 Units/L (39-308) 06/29/18 17:00 CK-MB (CK-2) 2.3 ng/mL (0-4.0) 06/29/18 17:00 CK/CKMB % Calc 3.2 % (<4) 06/29/18 17:00 Troponin I < 0.02 ng/mL (0-1.5) 06/29/18 17:00 Total Protein 5.9 g/dL (6.4-8.2) L 07/03/18 15:58 Albumin 3.0 g/dL (3.4-5.0) L 07/03/18 15:58 Globulin 2.9 g/dL (2.5-4.5) 07/03/18 15:58 Albumin/Globulin Ratio 1.0 Ratio (1.1-2.1) L 07/03/18 15:58 Specimen Type Catherized urine 06/30/18 10:10 Urine Color Yellow (YELLOW) 06/30/18 10:10 Urine Appearance Slightly hazy (CLEAR) 06/30/18 10:10 Urine pH 5.0 (5.0 - 8.0) 06/30/18 10:10 Ur Specific [place] 1.015 (1.000-1.030) 06/30/18 10:10 Urine Protein Negative (NEGATIVE) 06/30/18 10:10 Urine Glucose (UA) Negative (NEGATIVE) 06/30/18 10:10 Urine Ketones Negative (NEGATIVE) 06/30/18 10:10 Urine Occult Blood 1+ (NEGATIVE) 06/30/18 10:10 Urine Nitrite Negative (NEGATIVE) 06/30/18 10:10 Urine Bilirubin Negative (NEGATIVE) 06/30/18 10:10 Urine Urobilinogen Normal (NORMAL) 06/30/18 10:10 Ur Leukocyte Esterase Negative (NEGATIVE) 06/30/18 10:10 Urine RBC 3-5 /HPF (NONE SEEN) 06/30/18 10:10 Urine WBC None seen /HPF (NONE SEEN) 06/30/18 10:10 Ur Squamous Epith Cells Negative /HPF (NEGATIVE) 06/30/18 10:10 Amorphous Sediment Trace /HPF (NEGATIVE) 06/30/18 10:10 Urine Bacteria Negative /HPF (NEGATIVE) 06/30/18 10:10 Urine Mucus Few /HPF (NEGATIVE) 06/30/18 10:10 Ur Culture Indicated? No/not indicated 06/30/18 10:10 Stool Description 2g,dark brown,unform 07/03/18 09:00 Stl Occult Blood (IFOB) Positive (NEGATIVE) A 07/03/18 09:00 Blood Type A POSITIVE 07/03/18 00:10 Antibody Screen Negative 07/03/18 00:10 Crossmatch See Detail 07/03/18 00:10 - Plan (1) Pneumonia Status: Acute Qualifiers: Pneumonia type: due to unspecified organism Laterality: left Lung location: lower lobe of lung Qualified Code(s): J18.1 - Lobar pneumonia, unspecified organism Plan: PNEUMONIA PROTOCOL, ROCEPHIN 1GM IV DAILY, RESPIRATORY TREATMENTS, SUPPLEMENTAL OXYGEN, SOLU-MEDROL, CONTINUE TO MONITOR (2) Dehydration Status: Acute Plan: NORMAL SALINE, CONTINUE TO MONITOR (3) Altered mental status Status: Acute Qualifiers: Altered mental status type: transient alteration of awareness Qualified Code(s): R40.4 - Transient alteration of awareness Plan: KLONOPIN 1MG PO TID, CONTINUE TO MONITOR (4) Acute renal failure Status: Acute Qualifiers: Acute renal failure type: unspecified Qualified Code(s): N17.9 - Acute kidney failure, unspecified Plan: NORMAL SALINE BOLUS, THEN NORMAL SALINE AT 150ML/HR (5) Anemia Status: Acute Qualifiers: Anemia type: iron deficiency Iron deficiency anemia type: chronic blood loss Qualified Code(s): D50.0 - Iron deficiency anemia secondary to blood loss (chronic) Plan: CONSULT GASTROENTEROLOGY, PROCRIT 10,000 SC ON SUN, SUN, SUNDAY, MONITOR H&H
[2018-07-03] MEDS: ARICEPT TAB 5 MG PO SCH (21:52)
[2018-07-03] MEDS: SEROquel TAB 100 MG PO SCH (21:53)
[2018-07-04] MEDS: NS 1000 ML 1,000 ML with SODIUM BICARBONATE 8.4% INJ ADULT 50 ML IV SCH ×8 (00:22→20:02)
[2018-07-04] MEDS: XOPENEX 1.25 MG/3 ML NEBULE NEB SCH ×4 (01:00→16:03)
[2018-07-04] MEDS: PROTONIX INJ 40 MG VIAL 80 MG in NS 100 ML IV 80 ML IV SCH ×3 (02:35→20:02)
[2018-07-04] MEDS: KLONOPIN TAB 1 MG PO SCH ×3 (05:42→22:47)
[2018-07-04 06:43] LABS: ALBUMIN 2.5 g/dL (3.4-5.0); CALCIUM 8.3 mg/dL (8.5-10.1); CARBON DIOXIDE 16.7 mmol/L (21-32); COR CA(FOR HYPOALB) 9.5 mg/dL (8.5-10.1); CREATININE 3.17 mg/dL (0.70-1.30); TOTAL PROTEIN 5.4 g/dL (6.4-8.2)
--- NOTE | 2018-07-04 06:46 | RAD ---
History: Pneumonia Study: AP chest Comparison: July 02 Findings: The heart size is prominent status post sternotomy. There is limited inspiration of the lungs with diffuse chronic interstitial lung disease. No focal lung consolidation or atelectasis is suggested. There is no obvious effusion. Impression: No definite acute cardiopulmonary disease Reported By:
[2018-07-04 06:52] LABS: BASOPHILS % (AUTO) 0.3 % (0.2-1.0); HEMATOCRIT 30.4 % (42.0-54.0); HEMOGLOBIN 10.1 g/dL (13.5-18.0); LYMPHOCYTES # (AUTO) 0.9 X10^3/uL (1.3-2.9); LYMPHOCYTES % (AUTO) 7.1 % (21.0-51.0); MEAN CORPUSCULAR HEMOGLOBIN 30.2 pg (27.0-34.0); MEAN CORPUSCULAR HGB CONC 33.2 g/dL (33.0-35.0); MEAN PLATELET VOLUME 8.3 fL (7.4-11.0); MONOCYTES % (AUTO) 8.6 % (0.0-13.0); NEUTROPHILS # (AUTO) 10.2 x10^3/uL (2.2-4.8); PLATELET COUNT 233 X10^3/uL (150.0-450.0); RED BLOOD COUNT 3.34 X10^6/uL (4.7-6.0); RED CELL DISTRIBUTION WIDTH 16.5 % (11.6-16.5); WHITE BLOOD COUNT 12.2 X10^3/uL (3.6-10.0)
--- NOTE | 2018-07-04 08:17 | PCM.PROG ---
Progress Note - Progress Note for Day of Date of Exam: 07/03/18 - Subjective Subjective: WAS ADMITTED FOR PNEUMONIA, DEHYDRATION, AMS, ANEMIA, AND ACUTE RENAL FAILURE. HIS HEMOGLOBIN FELL THROUGHOUT THE NIGHT AND HE WAS TRANSFERRED TO THE INTENSIVE CARE UNIT AND TRANSFUSED WITH TWO LITERS OF PACKED RED BLOOD CELLS. TODAY, HE IS LYING IN BED WITH EYES CLOSED ON MORNING ROUNDS. HE AWAKENS AND RESPONDS EASILY TO VERBAL STIMULI. FAMILY REPORTS THAT HE CONTINUES WITH INTERMITTENT CONFUSION. PATIENT DOES HAVE A HISTORY OF DEMENTIA. ON EXAMINATION, HEART IS REGULAR IN RATE AND RHYTHM. BILATERAL LUNGS ARE NOTED WITH SCATTERED WHEEZING THROUGHOUT. ABDOMEN IS ROUND, SOFT, AND NON-TENDER WITH NORMAL BOWEL SOUNDS NOTED IN ALL QUADRANTS. HIS VITALS THIS MORNING ARE 98.5-105 -20-100%-119/75. LABS WERE OBTAINED. ABNORMAL LAB VALUES INCLUDE THE FOLLOWING: WBC 11.9, RBC 3.42, HGB 10.3, HCT 31.1, CHLORIDE 110, CARBON DIOXIDE 16.3, BUN 96, CREATININE 3.48, GLUCOSE 178, AST 42, TOTAL PROTEIN 5.9, ALBUMIN 3.0. HE IS CURRENTLY RECEIVING IV ANTIBIOTICS, RESPIRATORY TREATMENTS, AND IV HYDRATION. TODAY, WE WILL CONTINUE TO MONITOR H&H. CONSULTED WITH PATIENT AND PLANS FOR AN EGD TODAY. OTHERWISE, WE WILL FOLLOW UP WITH AM LABS AND CONTINUE TO MONITOR. - Past Medical Family Social History Past Med/Fam/Surg Hx: No changes since H&P Allergies: Allergies morphine Allergy (Verified 06/29/18 16:57) - Review of Systems ROS: No change since H&P - Vital Signs and I&O's Vital Signs: Temperature 96.7 F Pulse Rate [Left] 76 Pulse Rate 84 Respiratory Rate 16 Blood Pressure [Right Arm] 114/58 Blood Pressure [Left Arm] 105/53 Blood Pressure 109/55 O2 Sat by Pulse Oximetry 100 Intake and Output: Intake & Output 07/01/18 07/02/18 07/03/18 07/04/18 11:59 11:59 11:59 11:59 Intake Total 3020 / 3020 2340 / 2340 680 / 680 1205 / 1205 Output Total 1675 / 1675 Balance 1345 / 1345 2340 / 2340 680 / 680 1205 / 1205 - Physical Exam Oriented: Not Oriented Eyes: Normal Ear: Normal Nose: Normal Throat: Normal Respiratory: Generalized, Wheezes Cardiovascular: Normal : Normal Auscultation: Bowel Sounds: Normal Palpation: Normal Tenderness: Epigastric Skin: Normal Musculoskeletal: Normal Psychiatric: Agitation Mood Description: Anxious Affect: Normal Speech Pattern: Appropriate - Laboratory and Diagnostics Result Diagrams: 07/04/18 05:50 07/04/18 05:50 Labs: 07/02/18 20:20 Sputum - Expectorated Sputum Sputum Culture - Preliminary 07/02/18 20:20 Sputum - Expectorated Sputum - Final 06/29/18 17:00 Blood Blood Culture - Preliminary 06/29/18 18:51 Sputum - Expectorated Sputum Sputum Culture - Final 06/29/18 18:51 Sputum - Expectorated Sputum - Final Laboratory WBC 12.2 X10^3/uL (3.6-10.0) H 07/04/18 05:50 RBC 3.34 X10^6/uL (4.7-6.0) L 07/04/18 05:50 Hgb 10.1 g/dL (13.5-18.0) L 07/04/18 05:50 Hct 30.4 % (42.0-54.0) L 07/04/18 05:50 MCV 91.0 fL (80.0-100.0) 07/04/18 05:50 MCH 30.2 pg (27.0-34.0) 07/04/18 05:50 MCHC 33.2 g/dL (33.0-35.0) 07/04/18 05:50 RDW 16.5 % (11.6-16.5) 07/04/18 05:50 Plt Count 233 X10^3/uL (150.0-450.0) 07/04/18 05:50 Plt Count Comment Adequate (ADEQUATE) 07/02/18 04:30 MPV 8.3 fL (7.4-11.0) 07/04/18 05:50 Neut % (Auto) 84.0 % (42.0-75.0) H 07/04/18 05:50 Lymph % (Auto) 7.1 % (21.0-51.0) L 07/04/18 05:50 [place] % (Auto) 8.6 % (0.0-13.0) 07/04/18 05:50 Eos % (Auto) 0.0 % (0.9-2.9) L 07/04/18 05:50 Baso % (Auto) 0.3 % (0.2-1.0) 07/04/18 05:50 Neut # (Auto) 10.2 x10^3/uL (2.2-4.8) H 07/04/18 05:50 Lymph # (Auto) 0.9 X10^3/uL (1.3-2.9) L 07/04/18 05:50 [place] # (Auto) 1.0 x10^3/uL (0.3-0.8) H 07/04/18 05:50 Eos # (Auto) 0.0 x10^3/uL (0.0-0.2) 07/04/18 05:50 Baso # (Auto) 0.0 X10^3/uL (0.0-0.1) 07/04/18 05:50 Absolute Nucleated RBC 1.0 /100WBC 07/04/18 05:50 Total Counted 100 07/02/18 04:30 Neutrophils % (Manual) 91 % (39-76) H 07/02/18 04:30 Band Neutrophils % 3 % (0-10) 07/02/18 04:30 Lymphocytes % (Manual) 3 % (13-43) L 07/02/18 04:30 Monocytes % (Manual) 3 % (4-9) L 07/02/18 04:30 Plt Morphology Comment Normal (NORMAL) 07/02/18 04:30 RBC Morphology Normal (NORMAL) 07/02/18 04:30 Dimorphic RBCs A 07/02/18 04:30 Hypochromasia Slight A 07/02/18 04:30 INR Target Range - 06/29/18 17:00 INR 1.01 (0.8-1.3) 06/29/18 17:00 APTT 27.4 SECONDS (22.9-36.5) 06/29/18 17:00 PTT Comment - 06/29/18 17:00 Sodium 144 mmol/L (136-145) 07/04/18 05:50 Corrected Sodium 145 mmol/L (136-145) 07/04/18 05:50 Potassium 4.6 mmol/L (3.5-5.1) 07/04/18 05:50 Chloride 111 mmol/L (98-107) H 07/04/18 05:50 Carbon Dioxide 16.7 mmol/L (21-32) L 07/04/18 05:50 BUN 92 mg/dL (7-18) H 07/04/18 05:50 Creatinine 3.17 mg/dL (0.70-1.30) H 07/04/18 05:50 Est GFR (MDRD) Af Amer 24 (>60) L 07/04/18 05:50 Est GFR (MDRD) Non-Af 20 (>60) L 07/04/18 05:50 Glucose 131 mg/dL (65-99) H 07/04/18 05:50 POC Glucose (mg/dL) 143 mg/dL (65-99) H 07/04/18 05:58 Calcium 8.3 mg/dL (8.5-10.1) L 07/04/18 05:50 Corrected Calcium 9.5 mg/dL (8.5-10.1) 07/04/18 05:50 Magnesium 2.3 mg/dL (1.7-2.9) 06/29/18 17:00 Total Bilirubin 0.50 mg/dL (0.2-1.0) 07/04/18 05:50 AST 41 Units/L (15-37) H 07/04/18 05:50 ALT 38 Units/L (12-78) 07/04/18 05:50 Alkaline Phosphatase 64 Units/L (46-116) 07/04/18 05:50 Creatine Kinase 71 Units/L (39-308) 06/29/18 17:00 CK-MB (CK-2) 2.3 ng/mL (0-4.0) 06/29/18 17:00 CK/CKMB % Calc 3.2 % (<4) 06/29/18 17:00 Troponin I < 0.02 ng/mL (0-1.5) 06/29/18 17:00 Total Protein 5.4 g/dL (6.4-8.2) L 07/04/18 05:50 Albumin 2.5 g/dL (3.4-5.0) L 07/04/18 05:50 Globulin 2.9 g/dL (2.5-4.5) 07/04/18 05:50 Albumin/Globulin Ratio 0.9 Ratio (1.1-2.1) L 07/04/18 05:50 Specimen Type Catherized urine 06/30/18 10:10 Urine Color Yellow (YELLOW) 06/30/18 10:10 Urine Appearance Slightly hazy (CLEAR) 06/30/18 10:10 Urine pH 5.0 (5.0 - 8.0) 06/30/18 10:10 Ur Specific [place] 1.015 (1.000-1.030) 06/30/18 10:10 Urine Protein Negative (NEGATIVE) 06/30/18 10:10 Urine Glucose (UA) Negative (NEGATIVE) 06/30/18 10:10 Urine Ketones Negative (NEGATIVE) 06/30/18 10:10 Urine Occult Blood 1+ (NEGATIVE) 06/30/18 10:10 Urine Nitrite Negative (NEGATIVE) 06/30/18 10:10 Urine Bilirubin Negative (NEGATIVE) 06/30/18 10:10 Urine Urobilinogen Normal (NORMAL) 06/30/18 10:10 Ur Leukocyte Esterase Negative (NEGATIVE) 06/30/18 10:10 Urine RBC 3-5 /HPF (NONE SEEN) 06/30/18 10:10 Urine WBC None seen /HPF (NONE SEEN) 06/30/18 10:10 Ur Squamous Epith Cells Negative /HPF (NEGATIVE) 06/30/18 10:10 Amorphous Sediment Trace /HPF (NEGATIVE) 06/30/18 10:10 Urine Bacteria Negative /HPF (NEGATIVE) 06/30/18 10:10 Urine Mucus Few /HPF (NEGATIVE) 06/30/18 10:10 Ur Culture Indicated? No/not indicated 06/30/18 10:10 Stool Description 2g,dark brown,unform 07/03/18 09:00 Stl Occult Blood (IFOB) Positive (NEGATIVE) A 07/03/18 09:00 Blood Type A POSITIVE 07/03/18 00:10 Antibody Screen Negative 07/03/18 00:10 Crossmatch See Detail 07/03/18 00:10 - Plan (1) Pneumonia Status: Acute Qualifiers: Pneumonia type: due to unspecified organism Laterality: left Lung location: lower lobe of lung Qualified Code(s): J18.1 - Lobar pneumonia, unspecified organism Plan: PNEUMONIA PROTOCOL, ROCEPHIN 1GM IV DAILY, RESPIRATORY TREATMENTS, SUPPLEMENTAL OXYGEN, SOLU-MEDROL, CONTINUE TO MONITOR (2) Dehydration Status: Acute Plan: NORMAL SALINE, CONTINUE TO MONITOR (3) Altered mental status Status: Acute Qualifiers: Altered mental status type: transient alteration of awareness Qualified Code(s): R40.4 - Transient alteration of awareness Plan: KLONOPIN 1MG PO TID, CONTINUE TO MONITOR (4) Acute renal failure Status: Acute Qualifiers: Acute renal failure type: unspecified Qualified Code(s): N17.9 - Acute kidney failure, unspecified Plan: NORMAL SALINE BOLUS, THEN NORMAL SALINE AT 150ML/HR (5) Anemia Status: Acute Qualifiers: Anemia type: iron deficiency Iron deficiency 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
[2018-07-04] MEDS: FORTAZ or TAZICEF VIAL INJ IVP SCH (08:35)
[2018-07-04] MEDS: ROBITUSSIN DM PO SCH ×4 (08:50→22:48)
[2018-07-04] MEDS: NAMENDA TAB 10 MG PO SCH ×2 (10:00→22:46)
[2018-07-04] MEDS: VIBRAMYCIN 100 MG in D5W 250 ML IV 250 ML IV SCH ×2 (10:00→21:49)
--- NOTE | 2018-07-04 18:45 | RAD ---
HISTORY: Line placement. Study: Single view of the chest. Comparison:None Findings: The cardiomediastinal silhouette is normal. No focal consolidations, pleural effusions or pneumothorax. Osseous structures demonstrate no acute abnormality. 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 IMPRESSION: 1. No acute cardiopulmonary process. 2. A left central catheter terminating over the expected area of the SVC. Reported By:
--- NOTE | 2018-07-04 21:20 | PCM.PROG ---
Progress Note - Progress Note for Day of Date of Exam: 07/04/18 - Subjective Subjective: WAS ADMITTED FOR PNEUMONIA, DEHYDRATION, AMS, ANEMIA, AND ACUTE RENAL FAILURE. HE HAS RECEIVED TWO UNITS OF PACKED RED BLOOD CELLS SINCE ADMISSION. HIS HEMOGLOBIN HAS HELD STABLE. TODAY, HE IS LYING IN BED WITH EYES CLOSED ON MORNING ROUNDS. HE AWAKENS AND RESPONDS EASILY TO VERBAL STIMULI. FAMILY REPORTS THAT HE CONTINUES WITH INTERMITTENT CONFUSION, BUT APPEARS TO BE IMPROVING. PATIENT DOES HAVE A HISTORY OF DEMENTIA. ON EXAMINATION, HEART IS REGULAR IN RATE AND RHYTHM. BILATERAL LUNGS ARE NOTED WITH SCATTERED WHEEZING THROUGHOUT. ABDOMEN IS ROUND, SOFT, AND NON-TENDER WITH NORMAL BOWEL SOUNDS NOTED IN ALL QUADRANTS. HIS VITALS THIS MORNING ARE 96.7-76-16-100%-114/58. LABS WERE OBTAINED. ABNORMAL LAB VALUES INCLUDE THE FOLLOWING: WBC 12.2, RBC 3.34, HGB 10.1, HCT 30.4, CHLORIDE 111, CARBON DIOXIDE 16.7, BUN 92, CREATININE 3.17, GLUCOSE 131, CALCIUM 8.3, AST 41, TOTAL PROTEIN 5.4, ALBUMIN 2.5. EGD WAS DONE YESTERDAY AND REVEALED: Ectopic mucosa of the esophagus extending from 22 cm up to 34 cm from incisors consistent with likely Barretts esophagus, multiple esophagus ulcers with clean white bases, a 7 cm hiatal hernia, antral gastritis.HE IS CURRENTLY RECEIVING IV ANTIBIOTICS, RESPIRATORY TREATMENTS, AND IV HYDRATION. TODAY, WE WILL CONTINUE TO MONITOR H&H. OTHERWISE, WE WILL FOLLOW UP WITH AM LABS AND CONTINUE TO MONITOR. - Past Medical Family Social History Past Med/Fam/Surg Hx: No changes since H&P Allergies: Allergies morphine Allergy (Verified 06/29/18 16:57) - Review of Systems ROS: No change since H&P - Vital Signs and I&O's Vital Signs: Temperature 97.8 F Pulse Rate [Left] 105 Pulse Rate 97 Respiratory Rate 22 Blood Pressure [Right Arm] 151/73 Blood Pressure [Left Arm] 105/53 Blood Pressure 109/55 O2 Sat by Pulse Oximetry 100 Intake and Output: Intake & Output 07/02/18 07/03/18 07/04/18 07/05/18 11:59 11:59 11:59 11:59 Intake Total 2340 / 2340 680 / 680 1205 / 1205 943 / 943 Balance 2340 / 2340 680 / 680 1205 / 1205 943 / 943 - Physical Exam Oriented: Not Oriented Eyes: Normal Ear: Normal Nose: Normal Throat: Normal Respiratory: Generalized, Wheezes Cardiovascular: Normal : Normal Auscultation: Bowel Sounds: Normal Tenderness: Epigastric Skin: Normal Musculoskeletal: Normal Psychiatric: Agitation Mood Description: Anxious Affect: Normal Speech Pattern: Appropriate - Laboratory and Diagnostics Result Diagrams: 07/04/18 05:50 07/04/18 05:50 Labs: 07/02/18 20:20 Sputum - Expectorated Sputum Sputum Culture - Preliminary 07/02/18 20:20 Sputum - Expectorated Sputum - Final 06/29/18 17:00 Blood Blood Culture - Preliminary 06/29/18 18:51 Sputum - Expectorated Sputum Sputum Culture - Final 06/29/18 18:51 Sputum - Expectorated Sputum - Final Laboratory WBC 12.2 X10^3/uL (3.6-10.0) H 07/04/18 05:50 RBC 3.34 X10^6/uL (4.7-6.0) L 07/04/18 05:50 Hgb 10.1 g/dL (13.5-18.0) L 07/04/18 05:50 Hct 30.4 % (42.0-54.0) L 07/04/18 05:50 MCV 91.0 fL (80.0-100.0) 07/04/18 05:50 MCH 30.2 pg (27.0-34.0) 07/04/18 05:50 MCHC 33.2 g/dL (33.0-35.0) 07/04/18 05:50 RDW 16.5 % (11.6-16.5) 07/04/18 05:50 Plt Count 233 X10^3/uL (150.0-450.0) 07/04/18 05:50 Plt Count Comment Adequate (ADEQUATE) 07/02/18 04:30 MPV 8.3 fL (7.4-11.0) 07/04/18 05:50 Neut % (Auto) 84.0 % (42.0-75.0) H 07/04/18 05:50 Lymph % (Auto) 7.1 % (21.0-51.0) L 07/04/18 05:50 [place] % (Auto) 8.6 % (0.0-13.0) 07/04/18 05:50 Eos % (Auto) 0.0 % (0.9-2.9) L 07/04/18 05:50 Baso % (Auto) 0.3 % (0.2-1.0) 07/04/18 05:50 Neut # (Auto) 10.2 x10^3/uL (2.2-4.8) H 07/04/18 05:50 Lymph # (Auto) 0.9 X10^3/uL (1.3-2.9) L 07/04/18 05:50 [place] # (Auto) 1.0 x10^3/uL (0.3-0.8) H 07/04/18 05:50 Eos # (Auto) 0.0 x10^3/uL (0.0-0.2) 07/04/18 05:50 Baso # (Auto) 0.0 X10^3/uL (0.0-0.1) 07/04/18 05:50 Absolute Nucleated RBC 1.0 /100WBC 07/04/18 05:50 Total Counted 100 07/02/18 04:30 Neutrophils % (Manual) 91 % (39-76) H 07/02/18 04:30 Band Neutrophils % 3 % (0-10) 07/02/18 04:30 Lymphocytes % (Manual) 3 % (13-43) L 07/02/18 04:30 Monocytes % (Manual) 3 % (4-9) L 07/02/18 04:30 Plt Morphology Comment Normal (NORMAL) 07/02/18 04:30 RBC Morphology Normal (NORMAL) 07/02/18 04:30 Dimorphic RBCs A 07/02/18 04:30 Hypochromasia Slight A 07/02/18 04:30 INR Target Range - 06/29/18 17:00 INR 1.01 (0.8-1.3) 06/29/18 17:00 APTT 27.4 SECONDS (22.9-36.5) 06/29/18 17:00 PTT Comment - 06/29/18 17:00 Sodium 144 mmol/L (136-145) 07/04/18 05:50 Corrected Sodium 145 mmol/L (136-145) 07/04/18 05:50 Potassium 4.6 mmol/L (3.5-5.1) 07/04/18 05:50 Chloride 111 mmol/L (98-107) H 07/04/18 05:50 Carbon Dioxide 16.7 mmol/L (21-32) L 07/04/18 05:50 BUN 92 mg/dL (7-18) H 07/04/18 05:50 Creatinine 3.17 mg/dL (0.70-1.30) H 07/04/18 05:50 Est GFR (MDRD) Af Amer 24 (>60) L 07/04/18 05:50 Est GFR (MDRD) Non-Af 20 (>60) L 07/04/18 05:50 Glucose 131 mg/dL (65-99) H 07/04/18 05:50 POC Glucose (mg/dL) 117 mg/dL (65-99) H 07/04/18 19:56 Calcium 8.3 mg/dL (8.5-10.1) L 07/04/18 05:50 Corrected Calcium 9.5 mg/dL (8.5-10.1) 07/04/18 05:50 Magnesium 2.3 mg/dL (1.7-2.9) 06/29/18 17:00 Total Bilirubin 0.50 mg/dL (0.2-1.0) 07/04/18 05:50 AST 41 Units/L (15-37) H 07/04/18 05:50 ALT 38 Units/L (12-78) 07/04/18 05:50 Alkaline Phosphatase 64 Units/L (46-116) 07/04/18 05:50 Creatine Kinase 71 Units/L (39-308) 06/29/18 17:00 CK-MB (CK-2) 2.3 ng/mL (0-4.0) 06/29/18 17:00 CK/CKMB % Calc 3.2 % (<4) 06/29/18 17:00 Troponin I < 0.02 ng/mL (0-1.5) 06/29/18 17:00 Total Protein 5.4 g/dL (6.4-8.2) L 07/04/18 05:50 Albumin 2.5 g/dL (3.4-5.0) L 07/04/18 05:50 Globulin 2.9 g/dL (2.5-4.5) 07/04/18 05:50 Albumin/Globulin Ratio 0.9 Ratio (1.1-2.1) L 07/04/18 05:50 Specimen Type Catherized urine 06/30/18 10:10 Urine Color Yellow (YELLOW) 06/30/18 10:10 Urine Appearance Slightly hazy (CLEAR) 06/30/18 10:10 Urine pH 5.0 (5.0 - 8.0) 06/30/18 10:10 Ur Specific [place] 1.015 (1.000-1.030) 06/30/18 10:10 Urine Protein Negative (NEGATIVE) 06/30/18 10:10 Urine Glucose (UA) Negative (NEGATIVE) 06/30/18 10:10 Urine Ketones Negative (NEGATIVE) 06/30/18 10:10 Urine Occult Blood 1+ (NEGATIVE) 06/30/18 10:10 Urine Nitrite Negative (NEGATIVE) 06/30/18 10:10 Urine Bilirubin Negative (NEGATIVE) 06/30/18 10:10 Urine Urobilinogen Normal (NORMAL) 06/30/18 10:10 Ur Leukocyte Esterase Negative (NEGATIVE) 06/30/18 10:10 Urine RBC 3-5 /HPF (NONE SEEN) 06/30/18 10:10 Urine WBC None seen /HPF (NONE SEEN) 06/30/18 10:10 Ur Squamous Epith Cells Negative /HPF (NEGATIVE) 06/30/18 10:10 Amorphous Sediment Trace /HPF (NEGATIVE) 06/30/18 10:10 Urine Bacteria Negative /HPF (NEGATIVE) 06/30/18 10:10 Urine Mucus Few /HPF (NEGATIVE) 06/30/18 10:10 Ur Culture Indicated? No/not indicated 06/30/18 10:10 Stool Description 2g,dark brown,unform 07/03/18 09:00 Stl Occult Blood (IFOB) Positive (NEGATIVE) A 07/03/18 09:00 Blood Type A POSITIVE 07/03/18 00:10 Antibody Screen Negative 07/03/18 00:10 Crossmatch See Detail 07/03/18 00:10 - Plan (1) Pneumonia Status: Acute Qualifiers: Pneumonia type: due to unspecified organism Laterality: left Lung location: lower lobe of lung Qualified Code(s): J18.1 - Lobar pneumonia, unspecified organism Plan: PNEUMONIA PROTOCOL, ROCEPHIN 1GM IV DAILY, RESPIRATORY TREATMENTS, [place] PPLEMENTAL OXYGEN, SOLU-MEDROL, CONTINUE TO MONITOR (2) Dehydration Status: Acute Plan: NORMAL SALINE, CONTINUE TO MONITOR (3) Altered mental status Status: Acute Qualifiers: Altered mental status type: transient alteration of awareness Qualified Code(s): R40.4 - Transient alteration of awareness Plan: KLONOPIN 1MG PO TID, CONTINUE TO MONITOR (4) Acute renal failure Status: Acute Qualifiers: Acute renal failure type: unspecified Qualified Code(s): N17.9 - Acute kidney failure, unspecified Plan: NORMAL SALINE BOLUS, THEN NORMAL SALINE AT 150ML/HR (5) Anemia Status: Acute Qualifiers: Anemia type: iron deficiency Iron deficiency anemia type: chronic blood loss Qualified Code(s): D50.0 - Iron deficiency anemia secondary to blood loss (chronic) Plan: PROCRIT 10,000 SC ON SUN, SUN, SUNDAY, MONITOR H&H
[2018-07-04] MEDS: ARICEPT TAB 5 MG PO SCH (21:45)
[2018-07-04] MEDS: SEROquel TAB 100 MG PO SCH (21:48)
[2018-07-05] MEDS: PROTONIX INJ 40 MG VIAL 80 MG in NS 100 ML IV 80 ML IV SCH ×4 (05:28→21:25)
[2018-07-05] MEDS: NS 1000 ML 1,000 ML with SODIUM BICARBONATE 8.4% INJ ADULT 50 ML IV SCH ×8 (05:29→18:43)
[2018-07-05] MEDS: KLONOPIN TAB 1 MG PO SCH ×3 (05:57→21:26)
--- NOTE | 2018-07-05 06:20 | RAD ---
History: Shortness of breath Study: AP chest Comparison: Yesterday Findings: The heart size is prominent status post sternotomy. There is a left subclavian catheter unchanged with the tip in the upper SVC. There is limited inspiration of grossly clear lungs. There is no edema or effusion. Impression: Limited inspiration, no definite acute disease Reported By:
[2018-07-05 06:23] LABS: BASOPHILS % (AUTO) 0.2 % (0.2-1.0); EOSINOPHILS % (AUTO) 0.4 % (0.9-2.9); HEMATOCRIT 28.1 % (42.0-54.0); HEMOGLOBIN 9.7 g/dL (13.5-18.0); LYMPHOCYTES # (AUTO) 0.8 X10^3/uL (1.3-2.9); LYMPHOCYTES % (AUTO) 9.1 % (21.0-51.0); MEAN CORPUSCULAR HEMOGLOBIN 31.3 pg (27.0-34.0); MEAN CORPUSCULAR HGB CONC 34.6 g/dL (33.0-35.0); MEAN CORPUSCULAR VOLUME 90.5 fL (80.0-100.0); MEAN PLATELET VOLUME 7.7 fL (7.4-11.0); MONOCYTES # (AUTO) 0.7 x10^3/uL (0.3-0.8); MONOCYTES % (AUTO) 8.3 % (0.0-13.0); NEUTROPHILS # (AUTO) 7.2 x10^3/uL (2.2-4.8); PLATELET COUNT 224 X10^3/uL (150.0-450.0); RED CELL DISTRIBUTION WIDTH 16.5 % (11.6-16.5); WHITE BLOOD COUNT 8.8 X10^3/uL (3.6-10.0)
[2018-07-05 06:39] LABS: ALANINE AMINOTRANSFERASE 31 Units/L (12-78); ALBUMIN 2.2 g/dL (3.4-5.0); ALKALINE PHOSPHATASE 61 Units/L (46-116); ASPARTATE AMINO TRANSFERASE 25 Units/L (15-37); BLOOD UREA NITROGEN 83 mg/dL (7-18); CARBON DIOXIDE 19.9 mmol/L (21-32); COR CA(FOR HYPOALB) 9.4 mg/dL (8.5-10.1); CREATININE 2.68 mg/dL (0.70-1.30); SODIUM 149 mmol/L (136-145); TOTAL PROTEIN 4.8 g/dL (6.4-8.2); eGFR NON BLACK RACES 24 (>60)
[2018-07-05 06:45] LABS: CHLORIDE 118 mmol/L (98-107)
[2018-07-05] MEDS: VIBRAMYCIN 100 MG in D5W 250 ML IV 250 ML IV SCH ×2 (09:00→21:25)
[2018-07-05] MEDS: FORTAZ or TAZICEF VIAL INJ IVP SCH (10:00)
[2018-07-05] MEDS ORDERED: PROCALAMINE 3 % 1,000 ML IV SCH (11:00)
[2018-07-05] MEDS: XOPENEX 1.25 MG/3 ML NEBULE NEB SCH ×3 (11:58→15:15)
[2018-07-05] MEDS: NAMENDA TAB 10 MG PO SCH ×2 (13:37→21:27)
[2018-07-05] MEDS: ROBITUSSIN DM PO SCH ×4 (13:37→21:26)
[2018-07-05] MEDS: VALIUM INJ IVP PRN ×2 (13:50→22:00)
[2018-07-05] MEDS ORDERED: XOPENEX 1.25 MG/3 ML NEBULE NEB PRN (15:05)
[2018-07-05] MEDS ORDERED: ISOPTO ATROPINE SL PRN (18:20)
[2018-07-05] MEDS: ARICEPT TAB 5 MG PO SCH (21:26)
[2018-07-05] MEDS: SEROquel TAB 100 MG PO SCH (21:27)
[2018-07-05] MEDS ORDERED: NS 250 ML IV 0 ML IV ONE (21:57)
[2018-07-06] MEDS ORDERED: ATIVAN INJ 2 MG VIAL IVP ONE ×3 (00:12→23:53)
[2018-07-06] MEDS ORDERED: ATIVAN INJ 2 MG VIAL ONE ×2 (00:17→17:53)
[2018-07-06] MEDS: NS 1000 ML 1,000 ML with SODIUM BICARBONATE 8.4% INJ ADULT 50 ML IV SCH ×4 (03:44→03:45)
[2018-07-06] MEDS: PROTONIX INJ 40 MG VIAL 80 MG in NS 100 ML IV 80 ML IV SCH ×5 (03:45→23:16)
[2018-07-06 06:20] LABS: BASOPHILS % (AUTO) 0.3 % (0.2-1.0); EOSINOPHILS # (AUTO) 0.1 x10^3/uL (0.0-0.2); EOSINOPHILS % (AUTO) 0.5 % (0.9-2.9); HEMATOCRIT 30.4 % (42.0-54.0); HEMOGLOBIN 10.5 g/dL (13.5-18.0); LYMPHOCYTES # (AUTO) 0.6 X10^3/uL (1.3-2.9); LYMPHOCYTES % (AUTO) 6.3 % (21.0-51.0); MEAN CORPUSCULAR HEMOGLOBIN 31.4 pg (27.0-34.0); MEAN CORPUSCULAR HGB CONC 34.5 g/dL (33.0-35.0); MEAN CORPUSCULAR VOLUME 90.9 fL (80.0-100.0); MEAN PLATELET VOLUME 7.7 fL (7.4-11.0); MONOCYTES # (AUTO) 0.7 x10^3/uL (0.3-0.8); MONOCYTES % (AUTO) 6.4 % (0.0-13.0); NEUTROPHILS # (AUTO) 8.8 x10^3/uL (2.2-4.8); NEUTROPHILS % (AUTO) 86.5 % (42.0-75.0); PLATELET COUNT 206 X10^3/uL (150.0-450.0); RED BLOOD COUNT 3.34 X10^6/uL (4.7-6.0); RED CELL DISTRIBUTION WIDTH 16.4 % (11.6-16.5); WHITE BLOOD COUNT 10.2 X10^3/uL (3.6-10.0)
[2018-07-06] MEDS: KLONOPIN TAB 1 MG PO SCH (06:32)
[2018-07-06 06:43] LABS: ALBUMIN 2.1 g/dL (3.4-5.0); CARBON DIOXIDE 21.2 mmol/L (21-32); COR CA(FOR HYPOALB) 9.5 mg/dL (8.5-10.1); CREATININE 2.25 mg/dL (0.70-1.30); TOTAL PROTEIN 4.8 g/dL (6.4-8.2)
--- NOTE | 2018-07-06 07:03 | RAD ---
Examination: Portable AP chest History: SOB Comparison 07/05/2018 Findings: Stable heart size with sternal wires. Diffuse interstitial prominence in the lungs again noted which may be chronic. Left subclavian catheter extends to the SVC/cavoatrial junction. No developing pleural effusion or pneumothorax. Impression: No change since 1 day earlier. Reported By:
[2018-07-06] MEDS: NAMENDA TAB 10 MG PO SCH ×2 (08:24→20:08)
[2018-07-06] MEDS: ROBITUSSIN DM PO SCH ×4 (08:25→20:08)
[2018-07-06] MEDS: VIBRAMYCIN 100 MG in D5W 250 ML IV 250 ML IV SCH (09:20)
[2018-07-06] MEDS: FORTAZ or TAZICEF VIAL INJ IVP SCH (10:10)
[2018-07-06] MEDS: INVANZ INJ 1 GM VIAL 0.5 GM in NS 100 ML IV + SPIKE MINIBAG* 100 ML IV SCH (12:34)
[2018-07-06] MEDS ORDERED: HALDOL INJ IVP PRN (13:58)
[2018-07-06] MEDS: ARICEPT TAB 5 MG PO SCH (20:07)
[2018-07-06] MEDS: SEROquel TAB 100 MG PO SCH (20:08)
--- NOTE | 2018-07-06 22:33 | PCM.PROG ---
Progress Note - Progress Note for Day of Date of Exam: 07/05/18 - Subjective Subjective: WAS ADMITTED FOR PNEUMONIA, DEHYDRATION, AMS, ANEMIA, AND ACUTE RENAL FAILURE. HE HAS RECEIVED TWO UNITS OF PACKED RED BLOOD CELLS SINCE ADMISSION. HIS HEMOGLOBIN HAS HELD STABLE. HIS EGD REVEALED GASTRITIS, ESOPHAGITIS, AND ULCERS. TODAY, HE IS LYING IN BED WITH EYES CLOSED ON MORNING ROUNDS. HE AWAKENS AND RESPONDS EASILY TO VERBAL STIMULI. FAMILY REPORTS THAT HE CONTINUES WITH INTERMITTENT CONFUSION, BUT APPEARS TO BE IMPROVING. ON EXAMINATION, HEART IS REGULAR IN RATE AND RHYTHM. BILATERAL LUNGS ARE NOTED WITH SCATTERED WHEEZING THROUGHOUT. ABDOMEN IS ROUND, SOFT, AND NON-TENDER WITH NORMAL BOWEL SOUNDS NOTED IN ALL QUADRANTS. HIS VITALS THIS MORNING ARE 97.1-89-24-99%NC-115/63. LABS WERE OBTAINED. ABNORMAL LAB VALUES INCLUDE THE FOLLOWING: RBC 3.10, HGB 9.7, HCT 28.1, SODIUM 149, CHLORIDE 118, CARBON DIOXIDE 19.9, BUN 83, CREATININE 2.68, GLUCOSE 107, CALCIUM 8.0, TOTAL PROTEIN 4.8, ALBUMIN 2.2. PRELIMINARY SPUTUM CULTURE REPORTS GROWTH OF GRAM NEGATIVE RODS. TODAYS CHEST XRAY REPORTS: Limited inspiration, no definite acute disease. HE IS CURRENTLY RECEIVING IV ANTIBIOTICS, RESPIRATORY TREATMENTS, AND IV HYDRATION. TODAY, WE WILL START PROCALAMINE AT 40ML/HR. OTHERWISE, WE WILL FOLLOW UP WITH AM LABS AND CONTINUE TO MONITOR. - Past Medical Family Social History Past Med/Fam/Surg Hx: No changes since H&P Allergies: Allergies morphine Allergy (Verified 06/29/18 16:57) - Review of Systems ROS: No change since H&P - Vital Signs and I&O's Vital Signs: Temperature 98.3 F Pulse Rate [Left] 82 Pulse Rate 87 Respiratory Rate 20 Blood Pressure [Right Arm] 137/99 Blood Pressure [Left Arm] 174/113 Blood Pressure 161/80 O2 Sat by Pulse Oximetry 100 Intake and Output: Intake & Output 07/04/18 07/05/18 07/06/18 07/07/18 11:59 11:59 11:59 11:59 Intake Total 1205 / 1205 2698 / 2698 3980 / 3980 550 / 550 Output Total 2049 / 2049 400 / 400 Balance 1205 / 1205 2698 / 2698 1930 / 1930 150 / 150 - Physical Exam Oriented: Normal Eyes: Normal Ear: Normal Nose: Normal Throat: Normal Respiratory: Generalized, Wheezes Cardiovascular: Normal : Normal Auscultation: Bowel Sounds: Normal Palpation: Normal Tenderness: Epigastric Skin: Normal Musculoskeletal: Normal Psychiatric: Agitation Mood Description: Anxious Affect: Normal Speech Pattern: Unclear - Laboratory and Diagnostics Result Diagrams: 07/06/18 05:50 07/06/18 05:50 Labs: 07/02/18 20:20 Sputum - Expectorated Sputum Sputum Culture - Preliminary Klebsiella Oxytoca 07/02/18 20:20 Sputum - Expectorated Sputum - Final 06/29/18 17:00 Blood Blood Culture - Final 06/29/18 18:51 Sputum - Expectorated Sputum Sputum Culture - Final 06/29/18 18:51 Sputum - Expectorated Sputum - Final Laboratory WBC 10.2 X10^3/uL (3.6-10.0) H 07/06/18 05:50 RBC 3.34 X10^6/uL (4.7-6.0) L 07/06/18 05:50 Hgb 10.5 g/dL (13.5-18.0) L 07/06/18 05:50 Hct 30.4 % (42.0-54.0) L 07/06/18 05:50 MCV 90.9 fL (80.0-100.0) 07/06/18 05:50 MCH 31.4 pg (27.0-34.0) 07/06/18 05:50 MCHC 34.5 g/dL (33.0-35.0) 07/06/18 05:50 RDW 16.4 % (11.6-16.5) 07/06/18 05:50 Plt Count 206 X10^3/uL (150.0-450.0) 07/06/18 05:50 Plt Count Comment Adequate (ADEQUATE) 07/02/18 04:30 MPV 7.7 fL (7.4-11.0) 07/06/18 05:50 Neut % (Auto) 86.5 % (42.0-75.0) H 07/06/18 05:50 Lymph % (Auto) 6.3 % (21.0-51.0) L 07/06/18 05:50 [place] % (Auto) 6.4 % (0.0-13.0) 07/06/18 05:50 Eos % (Auto) 0.5 % (0.9-2.9) L 07/06/18 05:50 Baso % (Auto) 0.3 % (0.2-1.0) 07/06/18 05:50 Neut # (Auto) 8.8 x10^3/uL (2.2-4.8) H 07/06/18 05:50 Lymph # (Auto) 0.6 X10^3/uL (1.3-2.9) L 07/06/18 05:50 [place] # (Auto) 0.7 x10^3/uL (0.3-0.8) 07/06/18 05:50 Eos # (Auto) 0.1 x10^3/uL (0.0-0.2) 07/06/18 05:50 Baso # (Auto) 0.0 X10^3/uL (0.0-0.1) 07/06/18 05:50 Absolute Nucleated RBC 0.1 /100WBC 07/06/18 05:50 Total Counted 100 07/02/18 04:30 Neutrophils % (Manual) 91 % (39-76) H 07/02/18 04:30 Band Neutrophils % 3 % (0-10) 07/02/18 04:30 Lymphocytes % (Manual) 3 % (13-43) L 07/02/18 04:30 Monocytes % (Manual) 3 % (4-9) L 07/02/18 04:30 Plt Morphology Comment Normal (NORMAL) 07/02/18 04:30 RBC Morphology Normal (NORMAL) 07/02/18 04:30 Dimorphic RBCs A 07/02/18 04:30 Hypochromasia Slight A 07/02/18 04:30 INR Target Range - 06/29/18 17:00 INR 1.01 (0.8-1.3) 06/29/18 17:00 APTT 27.4 SECONDS (22.9-36.5) 06/29/18 17:00 PTT Comment - 06/29/18 17:00 Sodium 152 mmol/L (136-145) H* 07/06/18 05:50 Corrected Sodium 152 mmol/L (136-145) H 07/06/18 05:50 Potassium 4.1 mmol/L (3.5-5.1) 07/06/18 05:50 Chloride 119 mmol/L (98-107) H* 07/06/18 05:50 Carbon Dioxide 21.2 mmol/L (21-32) 07/06/18 05:50 BUN 68 mg/dL (7-18) H 07/06/18 05:50 Creatinine 2.25 mg/dL (0.70-1.30) H 07/06/18 05:50 Est GFR (MDRD) Af Amer 36 (>60) L 07/06/18 05:50 Est GFR (MDRD) Non-Af 30 (>60) L 07/06/18 05:50 Glucose 111 mg/dL (65-99) H 07/06/18 05:50 POC Glucose (mg/dL) 100 mg/dL (65-99) H 07/05/18 05:37 Calcium 8.0 mg/dL (8.5-10.1) L 07/06/18 05:50 Corrected Calcium 9.5 mg/dL (8.5-10.1) 07/06/18 05:50 Magnesium 2.3 mg/dL (1.7-2.9) 06/29/18 17:00 Total Bilirubin 0.60 mg/dL (0.2-1.0) 07/06/18 05:50 AST 25 Units/L (15-37) 07/06/18 05:50 ALT 29 Units/L (12-78) 07/06/18 05:50 Alkaline Phosphatase 67 Units/L (46-116) 07/06/18 05:50 Creatine Kinase 71 Units/L (39-308) 06/29/18 17:00 CK-MB (CK-2) 2.3 ng/mL (0-4.0) 06/29/18 17:00 CK/CKMB % Calc 3.2 % (<4) 06/29/18 17:00 Troponin I < 0.02 ng/mL (0-1.5) 06/29/18 17:00 Total Protein 4.8 g/dL (6.4-8.2) L 07/06/18 05:50 Albumin 2.1 g/dL (3.4-5.0) L 07/06/18 05:50 Globulin 2.7 g/dL (2.5-4.5) 07/06/18 05:50 Albumin/Globulin Ratio 0.8 Ratio (1.1-2.1) L 07/06/18 05:50 Specimen Type Catherized urine 06/30/18 10:10 Urine Color Yellow (YELLOW) 06/30/18 10:10 Urine Appearance Slightly hazy (CLEAR) 06/30/18 10:10 Urine pH 5.0 (5.0 - 8.0) 06/30/18 10:10 Ur Specific [place] 1.015 (1.000-1.030) 06/30/18 10:10 Urine Protein Negative (NEGATIVE) 06/30/18 10:10 Urine Glucose (UA) Negative (NEGATIVE) 06/30/18 10:10 Urine Ketones Negative (NEGATIVE) 06/30/18 10:10 Urine Occult Blood 1+ (NEGATIVE) 06/30/18 10:10 Urine Nitrite Negative (NEGATIVE) 06/30/18 10:10 Urine Bilirubin Negative (NEGATIVE) 06/30/18 10:10 Urine Urobilinogen Normal (NORMAL) 06/30/18 10:10 Ur Leukocyte Esterase Negative (NEGATIVE) 06/30/18 10:10 Urine RBC 3-5 /HPF (NONE SEEN) 06/30/18 10:10 Urine WBC None seen /HPF (NONE SEEN) 06/30/18 10:10 Ur Squamous Epith Cells Negative /HPF (NEGATIVE) 06/30/18 10:10 Amorphous Sediment Trace /HPF (NEGATIVE) 06/30/18 10:10 Urine Bacteria Negative /HPF (NEGATIVE) 06/30/18 10:10 Urine Mucus Few /HPF (NEGATIVE) 06/30/18 10:10 Ur Culture Indicated? No/not indicated 06/30/18 10:10 Stool Description 2g,dark brown,unform 07/03/18 09:00 Stl Occult Blood (IFOB) Positive (NEGATIVE) A 07/03/18 09:00 Blood Type A POSITIVE 07/03/18 00:10 Antibody Screen Negative 07/03/18 00:10 Crossmatch See Detail 07/03/18 00:10 - Plan (1) Pneumonia Status: Acute Qualifiers: Pneumonia type: due to unspecified organism Laterality: left Lung location: lower lobe of lung Qualified Code(s): J18.1 - Lobar pneumonia, unspe cified organism Plan: PNEUMONIA PROTOCOL, ROCEPHIN 1GM IV DAILY, RESPIRATORY TREATMENTS, SUPPLEMENTAL OXYGEN, SOLU-MEDROL, CONTINUE TO MONITOR (2) Dehydration Status: Acute Plan: NORMAL SALINE, CONTINUE TO MONITOR (3) Altered mental status Status: Acute Qualifiers: Altered mental status type: transient alteration of awareness Qualified Code(s): R40.4 - Transient alteration of awareness Plan: KLONOPIN 1MG PO TID, CONTINUE TO MONITOR (4) Acute renal failure Status: Acute Qualifiers: Acute renal failure type: unspecified Qualified Code(s): N17.9 - Acute kidney failure, unspecified Plan: NORMAL SALINE BOLUS, THEN NORMAL SALINE AT 150ML/HR (5) Anemia Status: Acute Qualifiers: Anemia type: iron deficiency Iron deficiency anemia type: chronic blood loss Qualified Code(s): D50.0 - Iron deficiency anemia secondary to blood loss (chronic) Plan: PROCRIT 10,000 SC ON SUN, SUN, SUNDAY, MONITOR H&H (6) Hypoproteinemia Status: Acute Plan: PROCAL AT 40ML/HR
[2018-07-07] MEDS: PROTONIX INJ 40 MG VIAL 80 MG in NS 100 ML IV 80 ML IV SCH ×4 (03:56→16:14)
--- NOTE | 2018-07-07 05:56 | RAD ---
Examination: Portable AP chest History: Pneumonia Comparison 07/06/2018 Findings: Cardiac size is stable. Bilateral interstitial prominence is again noted in the lungs. There is no developing consolidation, pulmonary edema or extrapulmonary air. Left subclavian catheter extends to the SVC. Impression: No change in appearance of the chest. Reported By:
[2018-07-07 06:36] LABS: BASOPHILS % (AUTO) 0.3 % (0.2-1.0); EOSINOPHILS # (AUTO) 0.2 x10^3/uL (0.0-0.2); EOSINOPHILS % (AUTO) 2.1 % (0.9-2.9); HEMATOCRIT 32.3 % (42.0-54.0); HEMOGLOBIN 10.9 g/dL (13.5-18.0); LYMPHOCYTES # (AUTO) 1.1 X10^3/uL (1.3-2.9); LYMPHOCYTES % (AUTO) 9.4 % (21.0-51.0); MEAN CORPUSCULAR HEMOGLOBIN 30.5 pg (27.0-34.0); MEAN CORPUSCULAR HGB CONC 33.7 g/dL (33.0-35.0); MEAN CORPUSCULAR VOLUME 90.5 fL (80.0-100.0); MONOCYTES # (AUTO) 0.7 x10^3/uL (0.3-0.8); MONOCYTES % (AUTO) 6.3 % (0.0-13.0); NEUTROPHILS # (AUTO) 9.5 x10^3/uL (2.2-4.8); NEUTROPHILS % (AUTO) 81.9 % (42.0-75.0); PLATELET COUNT 193 X10^3/uL (150.0-450.0); RED BLOOD COUNT 3.56 X10^6/uL (4.7-6.0); RED CELL DISTRIBUTION WIDTH 16.1 % (11.6-16.5); WHITE BLOOD COUNT 11.6 X10^3/uL (3.6-10.0)
[2018-07-07 06:38] LABS: ALANINE AMINOTRANSFERASE 26 Units/L (12-78); ALBUMIN 2.2 g/dL (3.4-5.0); ALKALINE PHOSPHATASE 75 Units/L (46-116); ASPARTATE AMINO TRANSFERASE 22 Units/L (15-37); BLOOD UREA NITROGEN 63 mg/dL (7-18); CALCIUM 8.3 mg/dL (8.5-10.1); CARBON DIOXIDE 22.2 mmol/L (21-32); COR CA(FOR HYPOALB) 9.7 mg/dL (8.5-10.1); CREATININE 1.98 mg/dL (0.70-1.30); TOTAL PROTEIN 4.9 g/dL (6.4-8.2); eGFR NON BLACK RACES 34 (>60)
[2018-07-07 07:28] LABS: CHLORIDE 119 mmol/L (98-107); SODIUM 153 mmol/L (136-145)
[2018-07-07] MEDS ORDERED: NS 1/2 1000 ML IV 1,000 ML IV ONE ×2 (09:07→15:55)
[2018-07-07] MEDS: NS 1/2 1000 ML IV 1,000 ML IV SCH ×2 (09:20→16:14)
[2018-07-07] MEDS: INVANZ INJ 1 GM VIAL 0.5 GM in NS 100 ML IV + SPIKE MINIBAG* 100 ML IV SCH (09:21)
[2018-07-07] MEDS: ROBITUSSIN DM PO SCH ×4 (09:22→21:05)
[2018-07-07] MEDS: NAMENDA TAB 10 MG PO SCH ×2 (09:22→21:05)
[2018-07-07] MEDS ORDERED: ATIVAN INJ 2 MG VIAL ONE (14:46)
[2018-07-07] MEDS: ATIVAN INJ 2 MG VIAL IVP PRN (15:02)
[2018-07-07] MEDS: ARICEPT TAB 5 MG PO SCH (21:05)
[2018-07-07] MEDS: SEROquel TAB 100 MG PO SCH (21:05)
[2018-07-08] MEDS ORDERED: NS 1/2 1000 ML IV 1,000 ML IV ONE (00:06)
[2018-07-08] MEDS: PROTONIX INJ 40 MG VIAL 80 MG in NS 100 ML IV 80 ML IV SCH ×3 (00:14→18:18)
[2018-07-08] MEDS: NS 1/2 1000 ML IV 1,000 ML IV SCH ×4 (00:14→17:12)
[2018-07-08] MEDS: ATIVAN INJ 2 MG VIAL IVP PRN ×2 (00:23→22:15)
[2018-07-08 06:26] LABS: BASOPHILS % (AUTO) 0.2 % (0.2-1.0); EOSINOPHILS # (AUTO) 0.3 x10^3/uL (0.0-0.2); EOSINOPHILS % (AUTO) 2.8 % (0.9-2.9); HEMATOCRIT 30.8 % (42.0-54.0); HEMOGLOBIN 10.6 g/dL (13.5-18.0); LYMPHOCYTES # (AUTO) 0.8 X10^3/uL (1.3-2.9); LYMPHOCYTES % (AUTO) 7.8 % (21.0-51.0); MEAN CORPUSCULAR HEMOGLOBIN 31.3 pg (27.0-34.0); MEAN CORPUSCULAR HGB CONC 34.4 g/dL (33.0-35.0); MEAN CORPUSCULAR VOLUME 90.9 fL (80.0-100.0); MEAN PLATELET VOLUME 8.2 fL (7.4-11.0); MONOCYTES # (AUTO) 0.8 x10^3/uL (0.3-0.8); MONOCYTES % (AUTO) 7.1 % (0.0-13.0); NEUTROPHILS # (AUTO) 8.8 x10^3/uL (2.2-4.8); NEUTROPHILS % (AUTO) 82.1 % (42.0-75.0); PLATELET COUNT 166 X10^3/uL (150.0-450.0); RED BLOOD COUNT 3.39 X10^6/uL (4.7-6.0); RED CELL DISTRIBUTION WIDTH 15.8 % (11.6-16.5); WHITE BLOOD COUNT 10.7 X10^3/uL (3.6-10.0)
[2018-07-08 06:45] LABS: ALANINE AMINOTRANSFERASE 24 Units/L (12-78); ALBUMIN 2.2 g/dL (3.4-5.0); ALKALINE PHOSPHATASE 83 Units/L (46-116); ASPARTATE AMINO TRANSFERASE 23 Units/L (15-37); BLOOD UREA NITROGEN 55 mg/dL (7-18); CALCIUM 7.9 mg/dL (8.5-10.1); CARBON DIOXIDE 21.4 mmol/L (21-32); COR CA(FOR HYPOALB) 9.3 mg/dL (8.5-10.1); CREATININE 1.84 mg/dL (0.70-1.30); TOTAL PROTEIN 4.7 g/dL (6.4-8.2); eGFR NON BLACK RACES 37 (>60)
[2018-07-08 06:58] LABS: CHLORIDE 118 mmol/L (98-107); SODIUM 151 mmol/L (136-145)
--- NOTE | 2018-07-08 07:01 | RAD ---
HISTORY: Follow-up pneumonia Study: Chest AP portable Comparison: 07/07/2018, 07/06/2018 Findings: The patient is status post median sternotomy. There is left-sided central line with its tip in the superior vena cava. The heart remains enlarged. No congestive heart failure is noted. No definite acute alveolar infiltrates or pleural effusions are identified. The bony thorax is unremarkable. IMPRESSION: Moderate cardiomegaly without congestive heart failure No definite infiltrates Reported By:
[2018-07-08] MEDS: INVANZ INJ 1 GM VIAL 0.5 GM in NS 100 ML IV + SPIKE MINIBAG* 100 ML IV SCH (09:21)
[2018-07-08] MEDS: NAMENDA TAB 10 MG PO SCH ×2 (11:46→22:14)
[2018-07-08] MEDS: ROBITUSSIN DM PO SCH ×4 (11:47→22:14)
[2018-07-08] MEDS: LEVAQUIN PREMIX IV 750 MG 750 MG/150 ML BAG IV SCH (13:13)
--- NOTE | 2018-07-08 20:46 | PCM.PROG ---
Progress Note - Progress Note for Day of Date of Exam: 07/06/18 - Subjective Subjective: WAS ADMITTED FOR PNEUMONIA, DEHYDRATION, AMS, ANEMIA, AND ACUTE RENAL FAILURE. HE HAS RECEIVED TWO UNITS OF PACKED RED BLOOD CELLS SINCE ADMISSION. HIS HEMOGLOBIN HAS HELD STABLE. HIS EGD REVEALED GASTRITIS, ESOPHAGITIS, AND ULCERS. TODAY, HE IS LYING IN BED WITH EYES CLOSED ON MORNING ROUNDS. HE AWAKENS AND RESPONDS EASILY TO VERBAL STIMULI. FAMILY REPORTS THAT HE SEEMS TO BE IMPROVING AND DOES NOT SEEM AGITATED. ON EXAMINATION, HEART IS REGULAR IN RATE AND RHYTHM. BILATERAL LUNGS ARE NOTED WITH SCATTERED WHEEZING THROUGHOUT. ABDOMEN IS ROUND, SOFT, AND NON-TENDER WITH NORMAL BOWEL SOUNDS NOTED IN ALL QUADRANTS. HIS VITALS THIS MORNING ARE 97.1-80-18-98%-129/73. LABS WERE OBTAINED. ABNORMAL LAB VALUES INCLUDE THE FOLLOWING: WBC 10.2, RBC 3.56, HGB 10.5, HCT 30.4, SODIUM 152, CHLORIDE 119, BUN 68, CREATININE 2.25, GLUCOSE 111, CALCIUM 8.0, TOTAL PROTEIN 4.8, ALBUMIN 2.1. PRELIMINARY SPUTUM CULTURE REPORTS GROWTH OF GRAM NEGATIVE RODS. TODAYS CHEST XRAY IS STABLE. HE IS CURRENTLY RECEIVING IV ANTIBIOTICS, RESPIRATORY TREATMENTS, AND IV HYDRATION. WE WILL CHANGE IV ANTIBIOTICS TO MEROPENEM. OTHERWISE, WE WILL FOLLOW UP WITH AM LABS AND CONTINUE TO MONITOR. - Past Medical Family Social History Past Med/Fam/Surg Hx: No changes since H&P Allergies: Allergies morphine Allergy (Verified 06/29/18 16:57) - Review of Systems ROS: No change since H&P - Vital Signs and I&O's Vital Signs: Temperature 98.6 F Pulse Rate [Left] 82 Pulse Rate 86 Respiratory Rate 37 Blood Pressure [Right Arm] 137/99 Blood Pressure [Left Arm] 174/113 Blood Pressure 172/88 O2 Sat by Pulse Oximetry 100 Intake and Output: Intake & Output 07/06/18 07/07/18 07/08/18 07/09/18 11:59 11:59 11:59 11:59 Intake Total 3980 / 3980 1170 / 1170 2258 / 2258 482 / 482 Output Total 2049 / 2049 1000 / 1000 1600 / 1600 550 / 550 Balance 1930 / 1930 170 / 170 658 / 658 -68 / -68 - Physical Exam Oriented: Normal Eyes: Normal Ear: Normal Nose: Normal Throat: Normal Respiratory: Generalized, Wheezes Cardiovascular: Normal : Normal Auscultation: Bowel Sounds: Normal Tenderness: Epigastric Skin: Normal Musculoskeletal: Normal Psychiatric: Agitation Mood Description: Anxious Affect: Normal Speech Pattern: Unclear - Laboratory and Diagnostics Result Diagrams: 07/08/18 05:34 07/08/18 05:34 Labs: 07/02/18 20:20 Sputum - Expectorated Sputum Sputum Culture - Final Klebsiella Oxytoca Stenotrophomonas Maltophilia 07/02/18 20:20 Sputum - Expectorated Sputum - Final 06/29/18 17:00 Blood Blood Culture - Final 06/29/18 18:51 Sputum - Expectorated Sputum Sputum Culture - Final 06/29/18 18:51 Sputum - Expectorated Sputum - Final Laboratory WBC 10.7 X10^3/uL (3.6-10.0) H 07/08/18 05:34 RBC 3.39 X10^6/uL (4.7-6.0) L 07/08/18 05:34 Hgb 10.6 g/dL (13.5-18.0) L 07/08/18 05:34 Hct 30.8 % (42.0-54.0) L 07/08/18 05:34 MCV 90.9 fL (80.0-100.0) 07/08/18 05:34 MCH 31.3 pg (27.0-34.0) 07/08/18 05:34 MCHC 34.4 g/dL (33.0-35.0) 07/08/18 05:34 RDW 15.8 % (11.6-16.5) 07/08/18 05:34 Plt Count 166 X10^3/uL (150.0-450.0) 07/08/18 05:34 Plt Count Comment Adequate (ADEQUATE) 07/02/18 04:30 MPV 8.2 fL (7.4-11.0) 07/08/18 05:34 Neut % (Auto) 82.1 % (42.0-75.0) H 07/08/18 05:34 Lymph % (Auto) 7.8 % (21.0-51.0) L 07/08/18 05:34 Bertie % (Auto) 7.1 % (0.0-13.0) 07/08/18 05:34 Eos % (Auto) 2.8 % (0.9-2.9) 07/08/18 05:34 Baso % (Auto) 0.2 % (0.2-1.0) 07/08/18 05:34 Neut # (Auto) 8.8 x10^3/uL (2.2-4.8) H 07/08/18 05:34 Lymph # (Auto) 0.8 X10^3/uL (1.3-2.9) L 07/08/18 05:34 Bertie # (Auto) 0.8 x10^3/uL (0.3-0.8) 07/08/18 05:34 Eos # (Auto) 0.3 x10^3/uL (0.0-0.2) H 07/08/18 05:34 Baso # (Auto) 0.0 X10^3/uL (0.0-0.1) 07/08/18 05:34 Absolute Nucleated RBC 0.1 /100WBC 07/08/18 05:34 Total Counted 100 07/02/18 04:30 Neutrophils % (Manual) 91 % (39-76) H 07/02/18 04:30 Band Neutrophils % 3 % (0-10) 07/02/18 04:30 Lymphocytes % (Manual) 3 % (13-43) L 07/02/18 04:30 Monocytes % (Manual) 3 % (4-9) L 07/02/18 04:30 Plt Morphology Comment Normal (NORMAL) 07/02/18 04:30 RBC Morphology Normal (NORMAL) 07/02/18 04:30 Dimorphic RBCs A 07/02/18 04:30 Hypochromasia Slight A 07/02/18 04:30 INR Target Range - 06/29/18 17:00 INR 1.01 (0.8-1.3) 06/29/18 17:00 APTT 27.4 SECONDS (22.9-36.5) 06/29/18 17:00 PTT Comment - 06/29/18 17:00 Sodium 151 mmol/L (136-145) H* 07/08/18 05:34 Corrected Sodium TNP 07/08/18 05:34 Potassium 3.9 mmol/L (3.5-5.1) 07/08/18 05:34 Chloride 118 mmol/L (98-107) H* 07/08/18 05:34 Carbon Dioxide 21.4 mmol/L (21-32) 07/08/18 05:34 BUN 55 mg/dL (7-18) H 07/08/18 05:34 Creatinine 1.84 mg/dL (0.70-1.30) H 07/08/18 05:34 Est GFR (MDRD) Af Amer 45 (>60) L 07/08/18 05:34 Est GFR (MDRD) Non-Af 37 (>60) L 07/08/18 05:34 Glucose 86 mg/dL (65-99) 07/08/18 05:34 POC Glucose (mg/dL) 100 mg/dL (65-99) H 07/05/18 05:37 Calcium 7.9 mg/dL (8.5-10.1) L 07/08/18 05:34 Corrected Calcium 9.3 mg/dL (8.5-10.1) 07/08/18 05:34 Magnesium 2.3 mg/dL (1.7-2.9) 06/29/18 17:00 Total Bilirubin 0.70 mg/dL (0.2-1.0) 07/08/18 05:34 AST 23 Units/L (15-37) 07/08/18 05:34 ALT 24 Units/L (12-78) 07/08/18 05:34 Alkaline Phosphatase 83 Units/L (46-116) 07/08/18 05:34 Creatine Kinase 71 Units/L (39-308) 06/29/18 17:00 CK-MB (CK-2) 2.3 ng/mL (0-4.0) 06/29/18 17:00 CK/CKMB % Calc 3.2 % (<4) 06/29/18 17:00 Troponin I < 0.02 ng/mL (0-1.5) 06/29/18 17:00 Total Protein 4.7 g/dL (6.4-8.2) L 07/08/18 05:34 Albumin 2.2 g/dL (3.4-5.0) L 07/08/18 05:34 Globulin 2.5 g/dL (2.5-4.5) 07/08/18 05:34 Albumin/Globulin Ratio 0.9 Ratio (1.1-2.1) L 07/08/18 05:34 Specimen Type Catherized urine 06/30/18 10:10 Urine Color Yellow (YELLOW) 06/30/18 10:10 Urine Appearance Slightly hazy (CLEAR) 06/30/18 10:10 Urine pH 5.0 (5.0 - 8.0) 06/30/18 10:10 Ur Specific [place] 1.015 (1.000-1.030) 06/30/18 10:10 Urine Protein Negative (NEGATIVE) 06/30/18 10:10 Urine Glucose (UA) Negative (NEGATIVE) 06/30/18 10:10 Urine Ketones Negative (NEGATIVE) 06/30/18 10:10 Urine Occult Blood 1+ (NEGATIVE) 06/30/18 10:10 Urine Nitrite Negative (NEGATIVE) 06/30/18 10:10 Urine Bilirubin Negative (NEGATIVE) 06/30/18 10:10 Urine Urobilinogen Normal (NORMAL) 06/30/18 10:10 Ur Leukocyte Esterase Negative (NEGATIVE) 06/30/18 10:10 Urine RBC 3-5 /HPF (NONE SEEN) 06/30/18 10:10 Urine WBC None seen /HPF (NONE SEEN) 06/30/18 10:10 Ur Squamous Epith Cells Negative /HPF (NEGATIVE) 06/30/18 10:10 Amorphous Sediment Trace /HPF (NEGATIVE) 06/30/18 10:10 Urine Bacteria Negative /HPF (NEGATIVE) 06/30/18 10:10 Urine Mucus Few /HPF (NEGATIVE) 06/30/18 10:10 Ur Culture Indicated? No/not indicated 06/30/18 10:10 Stool Description 2g,dark brown,unform 07/03/18 09:00 Stl Occult Blood (IFOB) Positive (NEGATIVE) A 07/03/18 09:00 Blood Type A POSITIVE 07/03/18 00:10 Antibody Screen Negative 07/03/18 00:10 Crossmatch See Detail 07/03/18 00:10 - Plan (1) Pneumonia Status: Acute Qualifiers: Pneumonia type: due to unspecified organism Laterality: left Lung location: lower lobe of lung Qualified Code(s): J18.1 - Lobar pneumonia, unspecified organism Plan: PNEUMONIA PROTOCOL, MEROPENEM IV, RESPIRATORY TREATMENTS, SUPPLEMENTAL OXYGEN, SOLU-MEDROL, CONTINUE TO MONITOR (2) Dehydration Status: Acute Plan: NORMAL SALINE, CONTINUE TO MONITOR (3) Altered mental status Status: Acute Qualifiers: Altered mental status type: transient alteration of awareness Qualified Code(s): R40.4 - Transient alteration of awareness Plan: KLONOPIN 1MG PO TID, CONTINUE TO MONITOR (4) Acute renal failure Status: Acute Qualifiers: Acute renal failure type: unspecified Qualified Code(s): N17.9 - Acute kidney failure, unspecified Plan: NORMAL SALINE BOLUS, THEN NORMAL SALINE AT 150ML/HR (5) Anemia Status: Acute Qualifiers: Anemia type: iron deficiency Iron deficiency anemia type: chronic blood loss Qualified Code(s): D50.0 - Iron deficiency anemia secondary to blood loss (chronic) Plan: PROCRIT 10,000 SC ON SUN, SUN, SUNDAY, MONITOR H&H (6) Hypoproteinemia Status: Acute Plan: PROCAL AT 40ML/HR
[2018-07-08] MEDS: ARICEPT TAB 5 MG PO SCH (22:14)
[2018-07-08] MEDS: SEROquel TAB 100 MG PO SCH (22:14)
[2018-07-09] MEDS: NS 1/2 1000 ML IV 1,000 ML IV SCH ×2 (02:09→08:21)
[2018-07-09] MEDS: PROTONIX INJ 40 MG VIAL 80 MG in NS 100 ML IV 80 ML IV SCH ×2 (04:10→13:46)
[2018-07-09] MEDS ORDERED: BUTT CREAM (COMPOUND) ONE (04:16)
[2018-07-09] MEDS ORDERED: BUTT CREAM (COMPOUND) TOP PRN (05:01)
[2018-07-09 06:33] LABS: ALANINE AMINOTRANSFERASE 20 Units/L (12-78); ALKALINE PHOSPHATASE 78 Units/L (46-116); ASPARTATE AMINO TRANSFERASE 23 Units/L (15-37); BLOOD UREA NITROGEN 52 mg/dL (7-18); CARBON DIOXIDE 20.7 mmol/L (21-32); COR CA(FOR HYPOALB) 9.6 mg/dL (8.5-10.1); CREATININE 1.66 mg/dL (0.70-1.30); TOTAL PROTEIN 4.5 g/dL (6.4-8.2); eGFR NON BLACK RACES 42 (>60)
[2018-07-09 06:45] LABS: BASOPHILS % (AUTO) 0.1 % (0.2-1.0); EOSINOPHILS # (AUTO) 0.3 x10^3/uL (0.0-0.2); EOSINOPHILS % (AUTO) 2.9 % (0.9-2.9); HEMATOCRIT 30.9 % (42.0-54.0); HEMOGLOBIN 10.4 g/dL (13.5-18.0); LYMPHOCYTES # (AUTO) 0.7 X10^3/uL (1.3-2.9); LYMPHOCYTES % (AUTO) 7.4 % (21.0-51.0); MEAN CORPUSCULAR HEMOGLOBIN 30.6 pg (27.0-34.0); MEAN CORPUSCULAR HGB CONC 33.6 g/dL (33.0-35.0); MEAN CORPUSCULAR VOLUME 91.1 fL (80.0-100.0); MEAN PLATELET VOLUME 8.2 fL (7.4-11.0); MONOCYTES # (AUTO) 0.7 x10^3/uL (0.3-0.8); MONOCYTES % (AUTO) 6.9 % (0.0-13.0); NEUTROPHILS # (AUTO) 7.9 x10^3/uL (2.2-4.8); NEUTROPHILS % (AUTO) 82.7 % (42.0-75.0); PLATELET COUNT 132 X10^3/uL (150.0-450.0); RED BLOOD COUNT 3.39 X10^6/uL (4.7-6.0); RED CELL DISTRIBUTION WIDTH 15.5 % (11.6-16.5); WHITE BLOOD COUNT 9.5 X10^3/uL (3.6-10.0)
[2018-07-09 06:52] LABS: CHLORIDE 118 mmol/L (98-107); SODIUM 150 mmol/L (136-145)
[2018-07-09] MEDS ORDERED: NS 1/2 1000 ML IV 1,000 ML IV ONE (08:13)
[2018-07-09] MEDS: NAMENDA TAB 10 MG PO SCH (08:20)
[2018-07-09] MEDS: ROBITUSSIN DM PO SCH ×2 (08:21→12:07)
[2018-07-09] MEDS: D5W 1000 ML IV 1,000 ML IV SCH ×2 (10:46→19:00)
--- NOTE | 2018-07-09 13:46 | CT ---
CT HEAD WITHOUT CONTRAST CLINICAL HISTORY: 83-year-old male with altered mental status. COMPARISON: CT head 07 09. TECHNIQUE: Multiple, non-contrasted axial CT images were obtained from the skull base to the cranial vertex. Coronal and sagittal reformats were performed. FINDINGS: There are no abnormal intra- or extra-axial fluid collections, midline shift, or mass effect. Demarco-white differentiation is normal. Partially empty sella Global cortical involutional changes are present that are advanced for the patient's stated age. The ventricular system is enlarged but commensurate with the degree of sulcal prominence. Severe periventricular and supraventricular white matter hypodensity is present that is nonspecific in appearance, but most likely to represent microvascular ischemic changes. Atherosclerotic vascular calcification is present within the carotid siphons and distal vertebral arteries. Chronic right sphenoid sinusitis with the remaining paranasal sinuses, mastoid air cells and tympanic cavities clear. IMPRESSION: 1. No definite evidence of an acute intracranial process. If clinical concern persists for acute stroke and it would alter patient management, consider MRI/MRA brain. 2. Severe microvascular white matter ischemic changes, with associated volume loss. 3. Chronic right sphenoid sinusitis. Reported By:
--- NOTE | 2018-07-09 21:24 | PCM.PROG ---
Progress Note - Progress Note for Day of Date of Exam: 07/07/18 - Subjective Subjective: WAS ADMITTED FOR PNEUMONIA, DEHYDRATION, AMS, ANEMIA, AND ACUTE RENAL FAILURE. TODAY, HE IS LYING IN BED WITH EYES CLOSED ON MORNING ROUNDS. HE AWAKENS AND RESPONDS EASILY TO VERBAL STIMULI. ON EXAMINATION, HEART IS REGULAR IN RATE AND RHYTHM. BILATERAL LUNGS ARE NOTED WITH SCATTERED WHEEZING THROUGHOUT. ABDOMEN IS ROUND, SOFT, AND NON-TENDER WITH NORMAL BOWEL SOUNDS NOTED IN ALL QUADRANTS. HIS VITALS THIS MORNING ARE 98.0-578-81-100%167/93. LABS WERE OBTAINED. ABNORMAL LAB VALUES INCLUDE THE FOLLOWING: WBC 11.6, RBC 3.56, HGB 10.9, HCT 32.3, SODIUM 153, CHLORIDE 119, BUN 63, CREATININE 1.98, GLUCOSE 102, CALCIUM 8.3, TOTAL PROTEIN 4.9, ALBUMIN 2.2. PRELIMINARY SPUTUM CULTURE REPORTS GROWTH OF KLEBSIELLA OXYTOCA. TODAYS CHEST XRAY IS STABLE. HE IS CURRENTLY RECEIVING IV ANTIBIOTICS, RESPIRATORY TREATMENTS, AND IV HYDRATION. HIS ANTIBIOTICS WERE CHANGED TO MEROPENEM. TODAY, WE WILL CHANGE HIS IV FLUIDS TO 1/2NS AT 125ML/HR. OTHERWISE, WE WILL FOLLOW UP WITH AM LABS AND CONTINUE TO MONITOR. - Past Medical Family Social History Past Med/Fam/Surg Hx: No changes since H&P Allergies: Allergies morphine Allergy (Verified 06/29/18 16:57) - Review of Systems ROS: No change since H&P - Vital Signs and I&O's Vital Signs: Temperature 98.6 F Pulse Rate [Left] 82 Pulse Rate 73 Respiratory Rate 25 Blood Pressure [Right Arm] 137/99 Blood Pressure [Left Arm] 174/113 Blood Pressure 163/74 O2 Sat by Pulse Oximetry 99 Intake and Output: Intake & Output 07/07/18 07/08/18 07/09/18 07/10/18 11:59 11:59 11:59 11:59 Intake Total 1170 / 1170 2258 / 2258 762 / 762 1080 / 1080 Output Total 1000 / 1000 1600 / 1600 1000 / 1000 625 / 625 Balance 170 / 170 658 / 658 -238 / -238 455 / 455 - Physical Exam Oriented: Normal Eyes: Normal Ear: Normal Nose: Normal Throat: Normal Respiratory: Generalized, Wheezes Cardiovascular: Normal : Normal Auscultation: Bowel Sounds: Normal Palpation: Normal Tenderness: Epigastric Skin: Normal Musculoskeletal: Normal Psychiatric: Agitation Mood Description: Anxious Affect: Normal Speech Pattern: Unclear - Laboratory and Diagnostics Result Diagrams: 07/09/18 05:45 07/09/18 05:45 Labs: 07/02/18 20:20 Sputum - Expectorated Sputum Sputum Culture - Final Klebsiella Oxytoca Stenotrophomonas Maltophilia 07/02/18 20:20 Sputum - Expectorated Sputum - Final 06/29/18 17:00 Blood Blood Culture - Final 06/29/18 18:51 Sputum - Expectorated Sputum Sputum Culture - Final 06/29/18 18:51 Sputum - Expectorated Sputum - Final Laboratory WBC 9.5 X10^3/uL (3.6-10.0) 07/09/18 05:45 RBC 3.39 X10^6/uL (4.7-6.0) L 07/09/18 05:45 Hgb 10.4 g/dL (13.5-18.0) L 07/09/18 05:45 Hct 30.9 % (42.0-54.0) L 07/09/18 05:45 MCV 91.1 fL (80.0-100.0) 07/09/18 05:45 MCH 30.6 pg (27.0-34.0) 07/09/18 05:45 MCHC 33.6 g/dL (33.0-35.0) 07/09/18 05:45 RDW 15.5 % (11.6-16.5) 07/09/18 05:45 Plt Count 132 X10^3/uL (150.0-450.0) L 07/09/18 05:45 Plt Count Comment Adequate (ADEQUATE) 07/02/18 04:30 MPV 8.2 fL (7.4-11.0) 07/09/18 05:45 Neut % (Auto) 82.7 % (42.0-75.0) H 07/09/18 05:45 Lymph % (Auto) 7.4 % (21.0-51.0) L 07/09/18 05:45 Chambers % (Auto) 6.9 % (0.0-13.0) 07/09/18 05:45 Eos % (Auto) 2.9 % (0.9-2.9) 07/09/18 05:45 Baso % (Auto) 0.1 % (0.2-1.0) L 07/09/18 05:45 Neut # (Auto) 7.9 x10^3/uL (2.2-4.8) H 07/09/18 05:45 Lymph # (Auto) 0.7 X10^3/uL (1.3-2.9) L 07/09/18 05:45 Chambers # (Auto) 0.7 x10^3/uL (0.3-0.8) 07/09/18 05:45 Eos # (Auto) 0.3 x10^3/uL (0.0-0.2) H 07/09/18 05:45 Baso # (Auto) 0.0 X10^3/uL (0.0-0.1) 07/09/18 05:45 Absolute Nucleated RBC 0.0 /100WBC 07/09/18 05:45 Total Counted 100 07/02/18 04:30 Neutrophils % (Manual) 91 % (39-76) H 07/02/18 04:30 Band Neutrophils % 3 % (0-10) 07/02/18 04:30 Lymphocytes % (Manual) 3 % (13-43) L 07/02/18 04:30 Monocytes % (Manual) 3 % (4-9) L 07/02/18 04:30 Plt Morphology Comment Normal (NORMAL) 07/02/18 04:30 RBC Morphology Normal (NORMAL) 07/02/18 04:30 Dimorphic RBCs A 07/02/18 04:30 Hypochromasia Slight A 07/02/18 04:30 INR Target Range - 06/29/18 17:00 INR 1.01 (0.8-1.3) 06/29/18 17:00 APTT 27.4 SECONDS (22.9-36.5) 06/29/18 17:00 PTT Comment - 06/29/18 17:00 Sodium 150 mmol/L (136-145) H* 07/09/18 05:45 Corrected Sodium TNP 07/09/18 05:45 Potassium 4.1 mmol/L (3.5-5.1) 07/09/18 05:45 Chloride 118 mmol/L (98-107) H* 07/09/18 05:45 Carbon Dioxide 20.7 mmol/L (21-32) L 07/09/18 05:45 BUN 52 mg/dL (7-18) H 07/09/18 05:45 Creatinine 1.66 mg/dL (0.70-1.30) H 07/09/18 05:45 Est GFR (MDRD) Af Amer 51 (>60) L 07/09/18 05:45 Est GFR (MDRD) Non-Af 42 (>60) L 07/09/18 05:45 Glucose 93 mg/dL (65-99) 07/09/18 05:45 POC Glucose (mg/dL) 144 mg/dL (65-99) H 07/09/18 20:29 Calcium 8.0 mg/dL (8.5-10.1) L 07/09/18 05:45 Corrected Calcium 9.6 mg/dL (8.5-10.1) 07/09/18 05:45 Magnesium 2.3 mg/dL (1.7-2.9) 06/29/18 17:00 Total Bilirubin 0.70 mg/dL (0.2-1.0) 07/09/18 05:45 AST 23 Units/L (15-37) 07/09/18 05:45 ALT 20 Units/L (12-78) 07/09/18 05:45 Alkaline Phosphatase 78 Units/L (46-116) 07/09/18 05:45 Creatine Kinase 71 Units/L (39-308) 06/29/18 17:00 CK-MB (CK-2) 2.3 ng/mL (0-4.0) 06/29/18 17:00 CK/CKMB % Calc 3.2 % (<4) 06/29/18 17:00 Troponin I < 0.02 ng/mL (0-1.5) 06/29/18 17:00 Total Protein 4.5 g/dL (6.4-8.2) L 07/09/18 05:45 Albumin 2.0 g/dL (3.4-5.0) L 07/09/18 05:45 Globulin 2.5 g/dL (2.5-4.5) 07/09/18 05:45 Albumin/Globulin Ratio 0.8 Ratio (1.1-2.1) L 07/09/18 05:45 Specimen Type Catherized urine 06/30/18 10:10 Urine Color Yellow (YELLOW) 06/30/18 10:10 Urine Appearance Slightly hazy (CLEAR) 06/30/18 10:10 Urine pH 5.0 (5.0 - 8.0) 06/30/18 10:10 Ur Specific [place] 1.015 (1.000-1.030) 06/30/18 10:10 Urine Protein Negative (NEGATIVE) 06/30/18 10:10 Urine Glucose (UA) Negative (NEGATIVE) 06/30/18 10:10 Urine Ketones Negative (NEGATIVE) 06/30/18 10:10 Urine Occult Blood 1+ (NEGATIVE) 06/30/18 10:10 Urine Nitrite Negative (NEGATIVE) 06/30/18 10:10 Urine Bilirubin Negative (NEGATIVE) 06/30/18 10:10 Urine Urobilinogen Normal (NORMAL) 06/30/18 10:10 Ur Leukocyte Esterase Negative (NEGATIVE) 06/30/18 10:10 Urine RBC 3-5 /HPF (NONE SEEN) 06/30/18 10:10 Urine WBC None seen /HPF (NONE SEEN) 06/30/18 10:10 Ur Squamous Epith Cells Negative /HPF (NEGATIVE) 06/30/18 10:10 Amorphous Sediment Trace /HPF (NEGATIVE) 06/30/18 10:10 Urine Bacteria Negative /HPF (NEGATIVE) 06/30/18 10:10 Urine Mucus Few /HPF (NEGATIVE) 06/30/18 10:10 Ur Culture Indicated? No/not indicated 06/30/18 10:10 Stool Description 2g,dark brown,unform 07/03/18 09:00 Stl Occult Blood (IFOB) Positive (NEGATIVE) A 07/03/18 09:00 Blood Type A POSITIVE 07/03/18 00:10 Antibody Screen Negative 07/03/18 00:10 Crossmatch See Detail 07/03/18 00:10 - Plan (1) Pneumonia Status: Acute Qualifiers: Pneumonia type: due to unspecified organism Laterality: left Lung location: lower lobe of lung Qualified Code(s): J18.1 - Lobar pneumonia, un specified organism Plan: PNEUMONIA PROTOCOL, MEROPENEM IV, RESPIRATORY TREATMENTS, SUPPLEMENTAL OXYGEN, SOLU-MEDROL, CONTINUE TO MONITOR (2) Dehydration Status: Acute Plan: 1/2 NORMAL SALINE, CONTINUE TO MONITOR (3) Altered mental status Status: Acute Qualifiers: Altered mental status type: transient alteration of awareness Qualified Code(s): R40.4 - Transient alteration of awareness Plan: KLONOPIN 1MG PO TID, CONTINUE TO MONITOR (4) Acute renal failure Status: Acute Qualifiers: Acute renal failure type: unspecified Qualified Code(s): N17.9 - Acute kidney failure, unspecified Plan: 1/2 NORMAL SALINE AT 125ML/HR (5) Anemia Status: Acute Qualifiers: Anemia type: iron deficiency Iron deficiency anemia type: chronic blood loss Qualified Code(s): D50.0 - Iron deficiency anemia secondary to blood loss (chronic) Plan: PROCRIT 10,000 SC ON SUN, SUN, SUNDAY, MONITOR H&H (6) Hypoproteinemia Status: Acute (7) Hypernatremia Status: Acute Plan: 1/2NS AT 125ML/HR, CONTINUE TO MONITOR
[2018-07-10] MEDS: PROTONIX INJ 40 MG VIAL 80 MG in NS 100 ML IV 80 ML IV SCH ×2
[2018-07-10] MEDS: D5W 1000 ML IV 1,000 ML IV SCH (03:45)
[2018-07-10] MEDS: ATIVAN INJ 2 MG VIAL IVP PRN (03:45)
[2018-07-10] MEDS: ROBITUSSIN DM PO SCH ×4 (03:47→13:45)
[2018-07-10] MEDS: NAMENDA TAB 10 MG PO SCH ×2 (03:48→10:26)
[2018-07-10] MEDS: ARICEPT TAB 5 MG PO SCH (03:48)
[2018-07-10] MEDS: SEROquel TAB 100 MG PO SCH (03:49)
[2018-07-10 06:33] LABS: BASOPHILS % (AUTO) 0.3 % (0.2-1.0); EOSINOPHILS # (AUTO) 0.3 x10^3/uL (0.0-0.2); EOSINOPHILS % (AUTO) 3.6 % (0.9-2.9); HEMATOCRIT 28.6 % (42.0-54.0); HEMOGLOBIN 9.7 g/dL (13.5-18.0); LYMPHOCYTES # (AUTO) 0.6 X10^3/uL (1.3-2.9); MEAN CORPUSCULAR HEMOGLOBIN 30.6 pg (27.0-34.0); MEAN CORPUSCULAR VOLUME 89.9 fL (80.0-100.0); MEAN PLATELET VOLUME 8.7 fL (7.4-11.0); MONOCYTES # (AUTO) 0.5 x10^3/uL (0.3-0.8); MONOCYTES % (AUTO) 5.1 % (0.0-13.0); NEUTROPHILS # (AUTO) 7.6 x10^3/uL (2.2-4.8); PLATELET COUNT 107 X10^3/uL (150.0-450.0); RED BLOOD COUNT 3.18 X10^6/uL (4.7-6.0); RED CELL DISTRIBUTION WIDTH 15.6 % (11.6-16.5)
[2018-07-10 06:50] LABS: ALBUMIN 1.7 g/dL (3.4-5.0); CALCIUM 7.5 mg/dL (8.5-10.1); CARBON DIOXIDE 21.1 mmol/L (21-32); COR CA(FOR HYPOALB) 9.3 mg/dL (8.5-10.1); CREATININE 1.49 mg/dL (0.70-1.30); TOTAL PROTEIN 4.1 g/dL (6.4-8.2)
--- NOTE | 2018-07-10 08:18 | PCM.PROG ---
Progress Note - Progress Note for Day of Date of Exam: 07/08/18 - Subjective Subjective: WAS ADMITTED FOR PNEUMONIA, DEHYDRATION, AMS, ANEMIA, AND ACUTE RENAL FAILURE. TODAY, HE IS LYING IN BED WITH EYES CLOSED ON MORNING ROUNDS. HE IS DIFFICULT TO AROUSE THIS MORNING. ON EXAMINATION, HEART IS REGULAR IN RATE AND RHYTHM. BILATERAL LUNGS ARE NOTED WITH SCATTERED WHEEZING THROUGHOUT. ABDOMEN IS ROUND, SOFT, AND NON-TENDER WITH NORMAL BOWEL SOUNDS NOTED IN ALL QUADRANTS. HIS VITALS THIS MORNING ARE 98.3-00-28-96-152/70. LABS WERE OBTAINED. ABNORMAL LAB VALUES INCLUDE THE FOLLOWING: WBC 10.7, RBC 3.39, HGB 10.6, HCT 30.8, SODIUM 151, CHLORIDE 118, BUN 55, CREATININE 1.84, CALCIUM 7.9, TOTAL PROTEIN 4.7, ALBUMIN 2.2. SPUTUM CULTURE REPORTS GROWTH OF KLEBSIELLA OXYTOCA AND STENOTROPHOMONAS MALTOPHILIA. IT IS NOT SENSITIVE TO THE MEROPENEM. TODAYS CHEST XRAY REPORTS: Moderate cardiomegaly without congestive heart failure. No definite infiltrates. HE IS CURRENTLY RECEIVING IV ANTIBIOTICS, RESPIRATORY TREATMENTS, AND IV HYDRATION. WE WILL CHANGE HIS ANTIBIOTICS TO LEVAQUIN TODAY. OTHERWISE, WE WILL FOLLOW UP WITH AM LABS AND CONTINUE TO MONITOR. - Past Medical Family Social History Past Med/Fam/Surg Hx: No changes since H&P Allergies: Allergies morphine Allergy (Verified 06/29/18 16:57) - Review of Systems ROS: No change since H&P - Vital Signs and I&O's Vital Signs: Temperature 98.5 F Pulse Rate [Left] 82 Pulse Rate 68 Respiratory Rate 22 Blood Pressure [Right Arm] 137/99 Blood Pressure [Left Arm] 174/113 Blood Pressure 136/62 O2 Sat by Pulse Oximetry 99 Intake and Output: Intake & Output 07/07/18 07/08/18 07/09/18 07/10/18 11:59 11:59 11:59 11:59 Intake Total 1170 / 1170 2258 / 2258 762 / 762 3038 / 3038 Output Total 1000 / 1000 1600 / 1600 1000 / 1000 1425 / 1425 Balance 170 / 170 658 / 658 -238 / -238 1613 / 1613 - Physical Exam Oriented: Unable to test Eyes: Normal Ear: Normal Nose: Normal Throat: Normal Respiratory: Generalized, Wheezes Cardiovascular: Normal : Normal Auscultation: Bowel Sounds: Normal Tenderness: Epigastric Skin: Normal Musculoskeletal: Normal Psychiatric: Normal Mood Description: Calm Affect: Normal Speech Pattern: Unclear - Laboratory and Diagnostics Result Diagrams: 07/10/18 05:53 07/10/18 05:53 Labs: 07/02/18 20:20 Sputum - Expectorated Sputum Sputum Culture - Final Klebsiella Oxytoca Stenotrophomonas Maltophilia 07/02/18 20:20 Sputum - Expectorated Sputum - Final 06/29/18 17:00 Blood Blood Culture - Final 06/29/18 18:51 Sputum - Expectorated Sputum Sputum Culture - Final 06/29/18 18:51 Sputum - Expectorated Sputum - Final Laboratory WBC 9.0 X10^3/uL (3.6-10.0) 07/10/18 05:53 RBC 3.18 X10^6/uL (4.7-6.0) L 07/10/18 05:53 Hgb 9.7 g/dL (13.5-18.0) L 07/10/18 05:53 Hct 28.6 % (42.0-54.0) L 07/10/18 05:53 MCV 89.9 fL (80.0-100.0) 07/10/18 05:53 MCH 30.6 pg (27.0-34.0) 07/10/18 05:53 MCHC 34.0 g/dL (33.0-35.0) 07/10/18 05:53 RDW 15.6 % (11.6-16.5) 07/10/18 05:53 Plt Count 107 X10^3/uL (150.0-450.0) L 07/10/18 05:53 Plt Count Comment Adequate (ADEQUATE) 07/02/18 04:30 MPV 8.7 fL (7.4-11.0) 07/10/18 05:53 Neut % (Auto) 84.0 % (42.0-75.0) H 07/10/18 05:53 Lymph % (Auto) 7.0 % (21.0-51.0) L 07/10/18 05:53 [place] % (Auto) 5.1 % (0.0-13.0) 07/10/18 05:53 Eos % (Auto) 3.6 % (0.9-2.9) H 07/10/18 05:53 Baso % (Auto) 0.3 % (0.2-1.0) 07/10/18 05:53 Neut # (Auto) 7.6 x10^3/uL (2.2-4.8) H 07/10/18 05:53 Lymph # (Auto) 0.6 X10^3/uL (1.3-2.9) L 07/10/18 05:53 [place] # (Auto) 0.5 x10^3/uL (0.3-0.8) 07/10/18 05:53 Eos # (Auto) 0.3 x10^3/uL (0.0-0.2) H 07/10/18 05:53 Baso # (Auto) 0.0 X10^3/uL (0.0-0.1) 07/10/18 05:53 Absolute Nucleated RBC 0.1 /100WBC 07/10/18 05:53 Total Counted 100 07/02/18 04:30 Neutrophils % (Manual) 91 % (39-76) H 07/02/18 04:30 Band Neutrophils % 3 % (0-10) 07/02/18 04:30 Lymphocytes % (Manual) 3 % (13-43) L 07/02/18 04:30 Monocytes % (Manual) 3 % (4-9) L 07/02/18 04:30 Plt Morphology Comment Normal (NORMAL) 07/02/18 04:30 RBC Morphology Normal (NORMAL) 07/02/18 04:30 Dimorphic RBCs A 07/02/18 04:30 Hypochromasia Slight A 07/02/18 04:30 INR Target Range - 06/29/18 17:00 INR 1.01 (0.8-1.3) 06/29/18 17:00 APTT 27.4 SECONDS (22.9-36.5) 06/29/18 17:00 PTT Comment - 06/29/18 17:00 Sodium 140 mmol/L (136-145) 07/10/18 05:53 Corrected Sodium 141 mmol/L (136-145) 07/10/18 05:53 Potassium 3.8 mmol/L (3.5-5.1) 07/10/18 05:53 Chloride 111 mmol/L (98-107) H 07/10/18 05:53 Carbon Dioxide 21.1 mmol/L (21-32) 07/10/18 05:53 BUN 42 mg/dL (7-18) H 07/10/18 05:53 Creatinine 1.49 mg/dL (0.70-1.30) H 07/10/18 05:53 Est GFR (MDRD) Af Amer 58 (>60) L 07/10/18 05:53 Est GFR (MDRD) Non-Af 48 (>60) L 07/10/18 05:53 Glucose 154 mg/dL (65-99) H 07/10/18 05:53 POC Glucose (mg/dL) 153 mg/dL (65-99) H 07/10/18 05:53 Calcium 7.5 mg/dL (8.5-10.1) L 07/10/18 05:53 Corrected Calcium 9.3 mg/dL (8.5-10.1) 07/10/18 05:53 Magnesium 2.3 mg/dL (1.7-2.9) 06/29/18 17:00 Total Bilirubin 0.50 mg/dL (0.2-1.0) 07/10/18 05:53 AST 28 Units/L (15-37) 07/10/18 05:53 ALT 17 Units/L (12-78) 07/10/18 05:53 Alkaline Phosphatase 76 Units/L (46-116) 07/10/18 05:53 Creatine Kinase 71 Units/L (39-308) 06/29/18 17:00 CK-MB (CK-2) 2.3 ng/mL (0-4.0) 06/29/18 17:00 CK/CKMB % Calc 3.2 % (<4) 06/29/18 17:00 Troponin I < 0.02 ng/mL (0-1.5) 06/29/18 17:00 Total Protein 4.1 g/dL (6.4-8.2) L 07/10/18 05:53 Albumin 1.7 g/dL (3.4-5.0) L 07/10/18 05:53 Globulin 2.4 g/dL (2.5-4.5) L 07/10/18 05:53 Albumin/Globulin Ratio 0.7 Ratio (1.1-2.1) L 07/10/18 05:53 Specimen Type Catherized urine 06/30/18 10:10 Urine Color Yellow (YELLOW) 06/30/18 10:10 Urine Appearance Slightly hazy (CLEAR) 06/30/18 10:10 Urine pH 5.0 (5.0 - 8.0) 06/30/18 10:10 Ur Specific [place] 1.015 (1.000-1.030) 06/30/18 10:10 Urine Protein Negative (NEGATIVE) 06/30/18 10:10 Urine Glucose (UA) Negative (NEGATIVE) 06/30/18 10:10 Urine Ketones Negative (NEGATIVE) 06/30/18 10:10 Urine Occult Blood 1+ (NEGATIVE) 06/30/18 10:10 Urine Nitrite Negative (NEGATIVE) 06/30/18 10:10 Urine Bilirubin Negative (NEGATIVE) 06/30/18 10:10 Urine Urobilinogen Normal (NORMAL) 06/30/18 10:10 Ur Leukocyte Esterase Negative (NEGATIVE) 06/30/18 10:10 Urine RBC 3-5 /HPF (NONE SEEN) 06/30/18 10:10 Urine WBC None seen /HPF (NONE SEEN) 06/30/18 10:10 Ur Squamous Epith Cells Negative /HPF (NEGATIVE) 06/30/18 10:10 Amorphous Sediment Trace /HPF (NEGATIVE) 06/30/18 10:10 Urine Bacteria Negative /HPF (NEGATIVE) 06/30/18 10:10 Urine Mucus Few /HPF (NEGATIVE) 06/30/18 10:10 Ur Culture Indicated? No/not indicated 06/30/18 10:10 Stool Description 2g,dark brown,unform 07/03/18 09:00 Stl Occult Blood (IFOB) Positive (NEGATIVE) A 07/03/18 09:00 Blood Type A POSITIVE 07/03/18 00:10 Antibody Screen Negative 07/03/18 00:10 Crossmatch See Detail 07/03/18 00:10 - Plan (1) Pneumonia Status: Acute Qualifiers: Pneumonia type: due to unspecified organism Laterality: left Lung location: lower lobe of lung Qualified Code(s): J18.1 - Lobar pneumonia, unspecified organism Plan: PNEUMONIA PROTOCOL, LEVAQUIN IV, RESPIRATORY TREATMENTS, SUPPLEMENTAL OXYGEN, SOLU-MEDROL, CONTINUE TO MONITOR (2) Dehydration Status: Acute Plan: 1/2 NORMAL SALINE, CONTINUE TO MONITOR (3) Altered mental status Status: Acute Qualifiers: Altered mental status type: transient alteration of awareness Qualified Code(s): R40.4 - Transient alteration of awareness Plan: KLONOPIN 1MG PO TID, CONTINUE TO MONITOR (4) Acute renal failure Status: Acute Qualifiers: Acute renal failure type: unspecified Qualified Code(s): N17.9 - Acute kidney failure, unspecified Plan: 1/2 NORMAL SALINE AT 125ML/HR (5) Anemia Status: Acute Qualifiers: Anemia type: iron deficiency Iron deficiency anemia type: chronic blood loss Qualified Code(s): D50.0 - Iron deficiency anemia secondary to blood loss (chronic) Plan: PROCRIT 10,000 SC ON SUN, SUN, SUNDAY, MONITOR H&H (6) Hypoproteinemia Status: Acute Plan: PROCAL AT 40ML/HR (7) Hypernatremia Status: Acute Plan: 1/2NS AT 125ML/HR, CONTINUE TO MONITOR
[2018-07-10 08:37] VITALS: BMI 20.7
[2018-07-10] MEDS: LEVAQUIN PREMIX IV 750 MG 750 MG/150 ML BAG IV SCH (11:10)
[2018-07-10 13:25] VITALS: BP 144/67
--- NOTE | 2018-07-25 21:05 | DR.CARTERD ---
- Discharge Summary for: Discharge Summary for Date of:: 07/10/18 - Admission Date Date of Admission: 06/29/18 - Admission Diagnoses Admission Diagnosis: (1) Pneumonia (2) Dehydration (3) Altered mental status - Discharge Date Discharge Date: 07/10/18 - Discharge Diagnoses Discharge Diagnosis: (1) Pneumonia (2) Dehydration (3) Altered mental status (4) Acute renal failure (5) Anemia (6) Hypoproteinemia (7) Hypernatremia - Hospital Course Hospital Course: DAY ONE, IS A 83 YEAR OLD PATIENT OF OURS WHO PRESENTED TO THE EMERGENCY ROOM VIA EMS WITHG COMPALINTS OF COUGH, COLD, CONGESTION, WHEEZING, AND SHORTNESS OF BREATH. FAMILY REPORTED THAT PATIENT HAS BEEN WEAKER THAN USUAL AND CONFUSED AT TIMES. THEY REPORTED THAT PATIENT HAS BEEN INCONTINENT AT TIMES. THEY STATED THAT HE ALSO FELL YESTERDAY AND HIT HIS HEAD. HE HAS HAD SLURRED SPEECH SINCE YESTERDAY. PATIENT WAS RECENTLY IN THE HOSPITAL FOR A GI BLEED AND ANEMIA. ON ARRIVAL TO THE ER, VITALS WERE 98.0-91-20-100%-109/55. LABS WERE OBTAINED. ABNORMAL LAB VALUES INCLUDED THE FOLLOWING: RBC 2.71, HGB 8.3, HCT 24.4, CARBON DIOXIDE 20.8, BUN 95, CREATININE 3.96, GLUCOSE 128, CALCIUM 7.8, TOTAL PROTEIN 6.1, ALBUMIN 2.9. CARDIAC ENZYMES WITHIN NORMAL LIMITS. A CHEST XRAY WAS OBTAINED AND REVEALED: Borderline to mild cardiomegaly with post sternotomy findings. Small focal parenchymal density left base may represent chronic scarring or a more acute process in the lower lobe. Follow-up suggested. A BRAIN CT WAS OBTAINED AND REVEALED: No acute intracranial pathology. EKG REVEALED: SINUS RHYTHM WITH HR 91. HE WAS ADMITTED FOR FURTHER EVALUATION AND TREATMENT OF BRONCHOPNEUMONIA, ALTERED MENTAL STATUS, AND DEHYDRATION. HE WAS STARTED ON THE PNEUMONIA PROTOCOL WITH ROCEPHIN 1GM IV DAILY, IV FLUIDS, RESPIRATORY TREATMENTS, AND SUPPLEMENTAL OXYGEN. WE FOLLOWED UP WITH AM LABS AND CHEST XRAY AND CONTINUED TO MONITOR. DAY THREE, HE WAS LYING IN BED WITH EYES CLOSED ON MORNING ROUNDS. HE AWAKENED AND RESPONDED EASILY TO VERBAL STIMULI. FAMILY REPORTED THAT HE HAD BEEN CONFUSED THROUGHOUT THE NIGHT AND ATTEMPTED TO GET OUT OF BED WITHOUT ASSISTANCE. ON EXAMINATION, HE WAS TACHYCARDIC. BILATERAL LUNGS WERE NOTED WITH SCATTERED WHEEZING THROUGHOUT. ABDOMEN WAS ROUND, SOFT, AND NON-TENDER WITH NORMAL BOWEL SOUNDS NOTED IN ALL QUADRANTS. HIS VITALS THIS MORNING WERE 98.2-132-20-97%-130/60. LABS WERE OBTAINED. ABNORMAL LAB VALUES INCLUDED THE FOLLOWING: WBC 15.9, RBC 2.40, HGB 7.1, HCT 21.5, CHLORIDE 109, CARBON DIOXIDE 13.0, BUN 90, CREATININE 3.20, GLUCOSE 185, CALCIUM 8.0, TOTAL BILI 0.10, AST 54, TOTAL PROTEIN 5.7, ALBUMIN 2.7. HE WAS RECEIVING IV ANTIBIOTICS, RESPIRATORY TREATMENTS, AND IV HYDRATION. WE STARTED PROCRIT [id number] UNITS SC ON SUNDAY, SUNDAY, AND FRIDAYS. WE RESTARTED HIS KLONOPIN. WE FOLLOWED UP WITH AM LABS AND CONTINUED TO MONITOR. DAY FIVE, WAS ADMITTED FOR PNEUMONIA, DEHYDRATION, AMS, ANEMIA, AND ACUTE RENAL FAILURE. HIS HEMOGLOBIN FELL THROUGHOUT THE NIGHT AND HE WAS TRANSFERRED TO THE INTENSIVE CARE UNIT AND TRANSFUSED WITH TWO LITERS OF PACKED RED BLOOD CELLS. HE WAS LYING IN BED WITH EYES CLOSED ON MORNING ROUNDS. HE AWAKENED AND RESPONDED EASILY TO VERBAL STIMULI. FAMILY REPORTED THAT HE CONTINUED WITH INTERMITTENT CONFUSION. PATIENT DOES HAVE A HISTORY OF DEMENTIA. ON EXAMINATION, HEART WAS REGULAR IN RATE AND RHYTHM. BILATERAL LUNGS WERE NOTED WITH SCATTERED WHEEZING THROUGHOUT. ABDOMEN WAS ROUND, SOFT, AND NON-TENDER WITH NORMAL BOWEL SOUNDS NOTED IN ALL QU ADRANTS. HIS VITALS THIS MORNING WERE 98.4-699-54-100%-119/75. LABS WERE OBTAINED. ABNORMAL LAB VALUES INCLUDED THE FOLLOWING: WBC 11.9, RBC 3.42, HGB 10.3, HCT 31.1, CHLORIDE 110, CARBON DIOXIDE 16.3, BUN 96, CREATININE 3.48, GLUCOSE 178, AST 42, TOTAL PROTEIN 5.9, ALBUMIN 3.0. HE WAS RECEIVING IV ANTIBIOTICS, RESPIRATORY TREATMENTS, AND IV HYDRATION. WE CONTINUED TO MONITOR H&H. CONSULTED WITH PATIENT AND PLANNED FOR AN EGD TODAY. WE FOLLOWED UP WITH AM LABS AND CONTINUED TO MONITOR. DAY SEVEN, WAS ADMITTED FOR PNEUMONIA, DEHYDRATION, AMS, ANEMIA, AND ACUTE RENAL FAILURE. HE HAS RECEIVED TWO UNITS OF PACKED RED BLOOD CELLS SINCE ADMISSION. HIS HEMOGLOBIN HAS HELD STABLE. HIS EGD REVEALED GASTRITIS, ESOPHAGITIS, AND ULCERS. HE WAS LYING IN BED WITH EYES CLOSED ON MORNING ROUNDS. HE AWAKENED AND RESPONDED EASILY TO VERBAL STIMULI. FAMILY REPORTED THAT HE CONTINUED WITH INTERMITTENT CONFUSION, BUT APPEARS TO BE IMPROVING. ON EXAMINATION, HEART WAS REGULAR IN RATE AND RHYTHM. BILATERAL LUNGS WERE NOTED WITH SCATTERED WHEEZING THROUGHOUT. ABDOMEN WAS ROUND, SOFT, AND NON-TENDER WITH NORMAL BOWEL SOUNDS NOTED IN ALL QUADRANTS. HIS VITALS THIS MORNING WERE 97.1-89-24-99%NC-115/63. LABS WERE OBTAINED. ABNORMAL LAB VALUES INCLUDED THE FOLLOWING: RBC 3.10, HGB 9.7, HCT 28.1, SODIUM 149, CHLORIDE 118, CARBON DIOXIDE 19.9, BUN 83, CREATININE 2.68, GLUCOSE 107, CALCIUM 8.0, TOTAL PROTEIN 4.8, ALBUMIN 2.2. PRELIMINARY SPUTUM CULTURE REPORTED GROWTH OF GRAM NEGATIVE RODS. TODAYS CHEST XRAY REVEALED: Limited inspiration, no definite acute disease. HE IS CURRENTLY RECEIVING IV ANTIBIOTICS, RESPIRATORY TREATMENTS, AND IV HYDRATION. WE STARTED PROCALAMINE AT 40ML/HR. OTHERWISE, WE FOLLOWED UP WITH AM LABS AND CONTINUED TO MONITOR. DAY NINE, WAS ADMITTED FOR PNEUMONIA, DEHYDRATION, AMS, ANEMIA, AND ACUTE RENAL FAILURE. HE WAS LYING IN BED WITH EYES CLOSED ON MORNING ROUNDS. HE AWAKENED AND RESPONDED EASILY TO VERBAL STIMULI. ON EXAMINATION, HEART WAS REGULAR IN RATE AND RHYTHM. BILATERAL LUNGS WERE NOTED WITH SCATTERED WHEEZING THROUGHOUT. ABDOMEN WAS ROUND, SOFT, AND NON-TENDER WITH NORMAL BOWEL SOUNDS NOTED IN ALL QUADRANTS. HIS VITALS THIS MORNING WERE 98.2-039-56-100%167/93. LABS WERE OBTAINED. ABNORMAL LAB VALUES INCLUDED THE FOLLOWING: WBC 11.6, RBC 3.56, HGB 10.9, HCT 32.3, SODIUM 153, CHLORIDE 119, BUN 63, CREATININE 1.98, GLUCOSE 102, CALCIUM 8.3, TOTAL PROTEIN 4.9, ALBUMIN 2.2. PRELIMINARY SPUTUM CULTURE REPORTED GROWTH OF KLEBSIELLA OXYTOCA. TODAYS CHEST XRAY WAS STABLE. HE WAS RECEIVING IV ANTIBIOTICS, RESPIRATORY TREATMENTS, AND IV HYDRATION. HIS ANTIBIOTICS WERE CHANGED TO MEROPENEM. WE CHANGED HIS IV FLUIDS TO 1/2NS AT 125ML/HR. WE FOLLOWED UP WITH AM LABS AND CONTINUED TO MONITOR. DAY TWELVE, PATIENT ALERT ON MORNING ROUNDS. SPEECH WAS UNCLEAR. 1+ NON-PITTING EDEMA WAS NOTED TO BILATERAL ARMS. PATIENT HAVING DIFFICULTY CLEARING SECRETIONS AND HAD A NON-PRODUCTIVE INTERMITTENT COUGH. HE WAS ALSO TACHYPNIC. LUNG SOUNDS WERE NOTED TO BE CLEAR IN BILATERAL UPPER LOBES AND DIMINISHED IN THE BILATERAL BASES ON AUSCULTATION. PATIENT WAS NON-AMBULATORY. WE HAD SPOKE WITH THE PATIENT AND FAMILY ABOUT DISCHARGING HOME WITH HOSPICE. FAMILY AND PATIENT WERE IN AGREEMENT. CASE MANAGEMENT HAS SET PATIENT UP WITH HOSPICE. VITALS WERE STABLE AND LABS WERE IMPROVING. WE PLANNED FOR DISCHARGE HOME WITH HOSPICE. INSTRUCTIONS FOR MEDICATIONS AND FOLLOW UP WERE DISCUSSED WITH PATIENT AND FAMILY, BOTH VOICED UNDERSTANDING. PATIENT WAS DISCHARGED HOME IN STABLE CONDITION WITH FAMILY. HOSPICE IS TO FOLLOW UP WITH PATIENT. - Discharge Medications Discharge Medications: Home Medication List clonazepam 0.5 mg PO BID PRN 06/29/18 [History] levalbuterol HCl 1.25 mg NEB TID #50 units 07/10/18 [Rx] levofloxacin 250 mg PO QDAY #10 tab 07/10/18 [Rx] Prescriptions: levalbuterol HCl Melvin Mack levofloxacin Melvin Mack Ambulatory Orders clopidogrel [Plavix] 75 mg PO DAILY 06/12/18 donepezil 5 mg PO HS 06/12/18 memantine 5 mg PO BID 06/12/18 quetiapine 50 mg PO HS 06/12/18 - Discharge Disposition Discharge Disposition: PATIENT TO FOLLOW UP IN OUR OFFICE IN ONE WEEK. HOSPICE TO FOLLOW UP WITH PATIENT AT HOME.
== END 2018-07-10 15:20 | disposition hospice, home (50) | DRG 178 ==
LOC: ER 16:40 → MED/SURG 18:30 → ICU 07-02 23:06
PROVIDERS: ADMIT Internal Medicine; ATTEND Internal Medicine
DX: K22.10 Ulcer of esophagus without bleeding; G30.8 Other Alzheimer's disease; I12.9 Hypertensive chronic kidney disease with stage 1 through stage 4 chronic kidney disease, or unspecified chronic kidney disease; R40.4 Transient alteration of awareness; Z66 Do not resuscitate; D50.0 Iron deficiency anemia secondary to blood loss (chronic); R07.89 Other chest pain; I87.2 Venous insufficiency (chronic) (peripheral); N17.8 Other acute kidney failure; R55 Syncope and collapse; J15.6 Pneumonia due to other Gram-negative bacteria; R26.89 Other abnormalities of gait and mobility; N18.4 Chronic kidney disease, stage 4 (severe); R06.02 Shortness of breath; R47.81 Slurred speech; E86.0 Dehydration; K44.9 Diaphragmatic hernia without obstruction or gangrene; R94.31 Abnormal electrocardiogram [ECG] [EKG]; Z79.01 Long term (current) use of anticoagulants; J15.1 Pneumonia due to Pseudomonas; K29.60 Other gastritis without bleeding; R60.0 Localized edema; E11.65 Type 2 diabetes mellitus with hyperglycemia
CPT/HCPCS: 36415; 36430; 36556; 70450; 71010; 71045; 80053; 81001; 82270; 82550; 82553; 83735; 84484; 85014; 85018; 85025; 85610; 85730; 86850; 86900; 86901; 86922; 87040; 87070; 87077; 87186; 87205; 92526; 92610; 93005; 93306; 94640; 96365; 96367; 96374; 96375; 97110; 97162; 97166; 99100; 99284; A4216; A4217; A4222; C9113; P9016; Q0177; S0028; J0696; J0713; J1335; J1630; J1815; J1956; J2060; J2704; J2920; J2930; J3360; J3490; J7030; J7050; J7060; J7620